=== PATIENT | female | born 1990 | race African-American/Black ===

== ENCOUNTER 2016-06-16 15:41 | Inpatient (IN) | payer BC ==
[~2016-06-16] VITALS: Ht 170.2 cm; Wt 82.2 kg
[~2016-06-16 15:41] MED LIST: OMEP20TA PO
[2016-06-16 15:44] VITALS: BP 136/93; PULSE 138; RESP 20; TEMP 97.9; O2SAT 99
[2016-06-16] MEDS ORDERED: TRAM50TA PO (16:34)
[2016-06-16] MEDS ORDERED: PROT40TA PO (16:34)
[2016-06-16] MEDS ORDERED: SODIUM CHLOR 0.9% 1000 ML INJ 1,000 ML IV SCH (16:40)
[2016-06-16 16:44] VITALS: BP 118/76; PULSE 119; RESP 17; O2SAT 100
[2016-06-16 16:45] VITALS: O2SAT 100
[2016-06-16] MEDS ORDERED: ONDANSETRON HCL 4 MG/2 ML VIAL IVP ONE (16:45)
[2016-06-16] MEDS ORDERED: KETOROLAC TROMETHAMINE 30 MG/ML (IVP) VIAL IVP ONE (16:45)
[2016-06-16] MEDS: SODIUM CHLORIDE 0.9% FLUSH 5 ML FLUSH IVF PRN (17:07)
--- NOTE | 2016-06-16 17:10 | PD ---
HPI Chief Complaint: Abdominal Pain Time Seen by Provider: 16:35 Travel History International Travel<30 days: No Contact w/Intl Traveler<30days: No Traveled to known affect area: No History of Present Illness HPI 25yo F with PMH of hiatal hernia presents to the ED with c/o NBNB vomiting for 2 weeks. States she has been having abdominal pain for months. Had endoscopy in [place] and states she had hiatal hernia. Denies any fever, chest pain , sob, urinary complaints, vaginal bleeding or discharge. PFSH Past Medical History Hx Anticoagulant Therapy: Yes Anxiety: Yes Cancer: No Cardiovascular Problems: No Chemotherapy: No Cerebrovascular Accident: No Diabetes: No Diminished Hearing: No Endocrine: No Gastrointestinal Disorders: Yes GERD: Yes Genitourinary: No Hiatal Hernia: Yes Immune Disorder: No Musculoskeletal: No Neurologic: No Psychiatric: No Reproductive: No Respiratory: No Tetanus Vaccination: < 5 Years Influenza Vaccination: Yes ?: Not Ovarian Cysts: Yes Past Surgical History Other Surgery: Yes (REMOVED CYST AND LEFT OVARY) Social History Alcohol Use: Yes (socially) Tobacco Use: No Substance Use: No (denies) Allergies-Medications (Allergen,Severity, Reaction): Coded Allergies: No Known Allergies (Unverified , 06/16/16) Reported Meds & Prescriptions Reported Meds & Active Scripts Active Reported Protonix (Pantoprazole Sodium) 40 Mg Tab 40 Mg PO DAILY Tramadol (Tramadol HCl) 50 Mg Tab 50 Mg PO Q6H PRN Review of Systems Except as stated in HPI: all other systems reviewed are Neg Physical Exam Narrative GENERAL: 25yo F not in distress. SKIN: Warm and dry. HEAD: Atraumatic. Normocephalic. EYES: Pupils equal and round. No scleral icterus. No injection or drainage. ENT: No nasal bleeding or discharge. Mucous membranes pink and moist. NECK: Trachea midline. No JVD. CARDIOVASCULAR: Regular rate and rhythm. No murmur appreciated. RESPIRATORY: No accessory muscle use. Clear to auscultation. Breath sounds equal bilaterally. GASTROINTESTINAL: Abdomen soft, non-tender, +TTP epigastric and suprapubic region. No RLQ ttp. No rebound tenderness or guarding. MUSCULOSKELETAL: No obvious deformities. No clubbing. No cyanosis. No edema. NEUROLOGICAL: Awake and alert. No obvious cranial nerve deficits. Motor grossly within normal limits. Normal speech. PSYCHIATRIC: Appropriate mood and affect; insight and judgment normal. Data Data Last Documented VS Vital Signs Date Time Temp Pulse Resp B/P Pulse Ox O2 Delivery O2 Flow Rate FiO2 06/16/16 16:45 100 Room Air 06/16/16 16:44 119 17 118/76 06/16/16 15:44 97.9 Orders Basic Metabolic Panel (Bmp) (06/16/16 16:40) Complete Blood Count With Diff (06/16/16 16:40) Lipase (06/16/16 16:40) Lactic Acid (06/16/16 16:40) Prothrombin Time / Inr (Pt) (06/16/16 16:40) Act Partial Throm Time (Ptt) (06/16/16 16:40) Urinalysis - C+S If Indicated (06/16/16 16:40) Iv Access Insert/Monitor (06/16/16 16:40) Ecg Monitoring (06/16/16 16:40) Oximetry (06/16/16 16:40) Ondansetron Inj (Zofran Inj) (06/16/16 16:45) Sodium Chlor 0.9% 1000 Ml Inj (Ns 1000 M (06/16/16 16:40) Sodium Chloride 0.9% Flush (Ns Flush) (06/16/16 16:45) Electrocardiogram (06/16/16 16:40) Ketorolac Inj (Toradol Inj) (06/16/16 16:45) Ed Urine Pregnancytest Poc (06/16/16 16:40) Troponin I (06/16/16 17:21) Ct Abd/Pel W Iv Contrast(Rout) (06/16/16 ) Urine Culture (06/16/16 17:00) Iohexol 350 Inj (Omnipaque 350 Inj) (06/16/16 18:16) Ceftriaxone Inj (Rocephin Inj) (06/16/16 18:30) Potassium Chlor 20 Meq Premix (Kcl 20 Me (06/16/16 18:30) Potassium Chloride (Kcl) (06/16/16 18:30) Magnesium Sulfate 1 Gm Premix (Magnesium (06/16/16 18:30) Diet Npo (06/16/16 Dinner) Vital Signs (Adult) OZZIE.Q4H (06/16/16 18:34) Ns + Kcl 20 Meq Inj (Ns + Kcl 20 Meq Inj (06/16/16 21:00) Basic Metabolic Panel (Bmp) (06/17/16 06:00) Complete Blood Count With Diff (06/17/16 06:00) Ondansetron Inj (Zofran Inj) (06/16/16 18:45) Admit Order (Ed Use Only) (06/16/16 18:38) Labs Laboratory Tests Test 06/16/16 06/16/16 16:55 17:00 White Blood Count 5.3 TH/MM3 Red Blood Count 4.82 MIL/MM3 Hemoglobin 12.8 GM/DL Hematocrit 39.3 % Mean Corpuscular Volume 81.6 FL Mean Corpuscular Hemoglobin 26.5 PG Mean Corpuscular Hemoglobin 32.4 % Concent Red Cell Distribution Width 25.2 % Platelet Count 537 TH/MM3 Mean Platelet Volume 6.9 FL Neutrophils (%) (Auto) 47.3 % Lymphocytes (%) (Auto) 36.0 % Monocytes (%) (Auto) 14.7 % Eosinophils (%) (Auto) 1.5 % Basophils (%) (Auto) 0.5 % Neutrophils # (Auto) 2.5 TH/MM3 Lymphocytes # (Auto) 1.9 TH/MM3 Monocytes # (Auto) 0.8 TH/MM3 Eosinophils # (Auto) 0.1 TH/MM3 Basophils # (Auto) 0.0 TH/MM3 CBC Comment AUTO DIFF Differential Comment AUTO DIFF CONFIRMED Platelet Estimate HIGH Platelet Morphology Comment NORMAL Target Cells 1+ Prothrombin Time 14.4 SEC Prothromb Time International 1.3 RATIO Ratio Activated Partial 35.1 SEC Thromboplast Time Sodium Level 139 MEQ/L Potassium Level 2.9 MEQ/L Chloride Level 101 MEQ/L Carbon Dioxide Level 22.0 MEQ/L Anion Gap 16 MEQ/L Blood Urea Nitrogen 4 MG/DL Creatinine 0.75 MG/DL Estimat Glomerular Filtration 115 ML/MIN Rate Random Glucose 92 MG/DL Lactic Acid Level 1.7 mmol/L Calcium Level 8.6 MG/DL Troponin I LESS THAN 0.02 NG/ML Lipase 461 U/L Urine Color ORANGE Urine Turbidity HAZY Urine pH 6.5 Urine Specific [place] 1.029 Urine Protein 300 mg/dL Urine Glucose (UA) NEG mg/dL Urine Ketones 150 mg/dL Urine Occult Blood SMALL Urine Nitrite NEG Urine Bilirubin NEG Urine Urobilinogen 8.0 MG/DL Urine Leukocyte Esterase LARGE Urine RBC 4 /hpf Urine WBC 29 /hpf Urine Squamous Epithelial 11 /hpf Cells Urine Bacteria OCC /hpf Urine Hyaline Casts 30 /lpf Urine Mucus MANY /lpf Microscopic Urinalysis Comment CULTURE INDICATED MDM Medical Decision Making Medical Screen Exam Complete: Yes Emergency Medical Condition: Yes Interpretation(s) EKG: Sinus tachycardia at 101bpm. Diffuse STD. Normal axis. Differential Diagnosis Cystitis vs. pancreatitis vs. colitis vs. gastritis Narrative Course 25yo F with vomiting for over 2 weeks and epigastric and suprapubic abdominal pain. Labs reviewed, no leukocytosis. K is low at 2.9, replaced with 20mEq KCl IV and 40mEq KCl PO. Pt also empirically given magnesium 1gm IV. Lipase mildly elevated at 461. Lactic acid 1.7. UA significant for large leukocyte and bacteria. Pt given ceftriaxone 1gm IV. Pt given zofran, toradol and NS IVF x2. CTa/p showed large complex septated pelvic mass that is decreased in size from prior study. Pt already knows about this and is being treated for it. Distal small bowel is abnormal with dilatation and nonspecific but most likely infectious or inflammatory. Added flagyl for colitis. Pt is having normal bowel movements and flatus. Discussed with Dr. Beltran and accepted. Diagnosis Primary Impression: Hypokalemia Additional Impression: Pelvic mass in female Admitting Information Admitting Physician Requests: Bibiana Hamilton DO Jun 16, 2016 17:10
[2016-06-16 17:25] LABS: AUTOMATED NEUTROPHIL # 2.5 TH/MM3 (1.8-7.7); BASOPHIL % 0.5 % (0.0-2.0); EOSINOPHIL # 0.1 TH/MM3 (0-0.4); EOSINOPHIL % 1.5 % (0.0-4.0); HEMATOCRIT 39.3 % (35.0-46.0); LYMPHOCYTE # 1.9 TH/MM3 (1.0-4.8); MEAN CELL VOLUME 81.6 FL (80.0-100.0); MEAN CORPUSCULAR HEMOGLOBIN 26.5 PG (27.0-34.0); MEAN CORPUSCULAR HGB CONC 32.4 % (32.0-36.0); MONO % 14.7 % (0.0-8.0); NEUT % 47.3 % (16.0-70.0); PLATELET COUNT 537 TH/MM3 (150-450); RED BLOOD COUNT 4.82 MIL/MM3 (4.00-5.30); RED CELL DISTRIBUTION WIDTH 25.2 % (11.6-17.2); WHITE BLOOD COUNT 5.3 TH/MM3 (4.0-11.0)
[2016-06-16 17:25] LABS: BACTERIA, URINE OCC /hpf; BLOOD, URINE SMALL (NEG); COMMENT (UR) CULTURE INDICATED; CULTURE IF INDICATED CULTURE INDICATED; GLUCOSE,URINE NEG (NEG); HYALINE CAST, URINE 30 /lpf (RARE); KETONE, URINE 150 mg/dL (NEG); MUCUS URINE MANY /lpf (OCC); NITRITE,URINE NEG (NEG); PH, URINE 6.5 (5.0-8.5); SQUAMOUS EPITHELIAL CELL URINE 11 /hpf (0-5)
[2016-06-16 17:28] LABS: APTT (PATIENT) 35.1 SEC (24.3-30.1); HEMO FLAGS AUTO DIFF; INTERNATIONAL NORMALIZED RATIO 1.3 RATIO; PROTHROMBIN TIME - PATIENT 14.4 SEC (9.8-11.6)
[2016-06-16 17:28] LABS: URINE COLOR ORANGE (YELLW/STRAW)
[2016-06-16] MEDS ORDERED: IOHEXOL 350 MG/ML 10 ML VIAL (for RAD DIAG) IV ONE (18:16)
[2016-06-16 18:24] LABS: POTASSIUM 2.9 MEQ/L (3.5-5.1)
[2016-06-16] MEDS ORDERED: POTASSIUM CHLOR 20 MEQ PREMIX 100 ML IV ONE (18:30)
[2016-06-16] MEDS ORDERED: MAGNESIUM SULFATE 1 GM PREMIX 100 ML IV ONE (18:30)
[2016-06-16] MEDS ORDERED: POTASSIUM CHLORIDE 20 MEQ CONTROLLED RELEASE TAB PO ONE (18:30)
[2016-06-16] MEDS ORDERED: cefTRIAXone INJ 1,000 MG in SODIUM CHLORIDE 0.9% INJ 100 ML IV ONE (18:30)
--- NOTE | 2016-06-16 18:32 | RADRPT ---
EXAM DATE/TIME: 06/16/2016 18:11 [facility] COMPARISON: CT ABDOMEN & PELVIS W/O CONTRAST, January 22, 2016, 10:32. INDICATIONS : Abdominal pain with nausea and vomiting. IV CONTRAST: 100 cc Omnipaque 350 (iohexol) IV ORAL CONTRAST: No oral contrast ingested. RADIATION DOSE: 10.12 CTDIvol (mGy) MEDICAL HISTORY : Hernia, hiatal. Endometriosis. History of a large complex cystic mass in the pelvis seen on prior CT SURGICAL HISTORY : None. Left ovary removal. ENCOUNTER: Initial ACUITY: 1 day PAIN SCALE: 7/10 LOCATION: Bilateral upper quadrant TECHNIQUE: Volumetric scanning of the abdomen and pelvis was performed. Using automated exposure control and ad justment of the mA and/or kV according to patient size, radiation dose was kept as low as reasonably achievable to obtain optimal diagnostic quality images. FINDINGS: LOWER LUNGS: The visualized lower lungs are clear. LIVER: Homogeneous density without lesion. There is no dilation of the biliary tree. No calcified gallston es. There is diffuse fatty infiltration of the upper. SPLEEN: Normal size without lesion. PANCREAS: Within normal limits. KIDNEYS: Normal in size and shape. There is no mass, stone or hydronephrosis. ADRENAL GLANDS: Within normal limits. VASCULAR: There is no aortic aneurysm. BOWEL/MESENTERY: There is an abnormal bowel gas pattern with loops of mildly dilated distal small bowel with enhanceme nt of the wall and air-fluid levels. The loops measure up to approximately 3.6 cm in greatest diamete r. There is apparent mild surrounding inflammatory change with no free air or fluid. The colon is dec ompressed. ABDOMINAL WALL: Within normal limits. RETROPERITONEUM: There is no lymphadenopathy. BLADDER: No wall thickening or mass. REPRODUCTIVE: A complex cystic mass is again identified in the central pelvis measuring up to 10.6 x 7.9 x 7.8 cm i n greatest AP by transverse by craniocaudal dimension. There multiple septations. The mass is smaller in size than on the prior study when this measured up to 17 x 11.9 x 15.1 cm. There is no large cristy d component. INGUINAL: There is no lymphadenopathy or hernia. MUSCULOSKELETAL: Within normal limits for patient age. CONCLUSION: 1. Large complex septated pelvic mass again noted which is decreased in size from the prior study. Th is remains most consistent with ovarian etiology. This could represent a large endometrioma given the patient's history. 2. The distal small bowel is abnormal with dilatation, enhancement of the sanchez and multiple air-flui d levels. This is nonspecific but most likely is infectious or inflammatory. The more proximal small bowel and colon are decompressed and this is unlikely to represent obstruction. 3. Fatty infiltration of the liver. Vicente Minor MD on June 16, 2016 at 18:22 Board Certified Radiologist. This report was verified electronically.
[2016-06-16 18:43] VITALS: BP 127/73; PULSE 100; RESP 20; O2SAT 98
[2016-06-16] MEDS ORDERED: metroNIDAZOLE 500 MG INJ 100 ML IV ONE (19:00)
[2016-06-16 19:02] LABS: SCAN/DIFF AUTO DIFF CONFIRMED
[2016-06-16 19:03] LABS: PLATELET ESTIMATE SMEAR HIGH (NORMAL); PLATELET MORPHOLOGY NORMAL (NORMAL); TARGET CELLS 1+ (NORMAL)
[2016-06-16] MEDS: MORPHINE SULFATE 4 MG/ML INJ IV PUSH PRN (21:10)
[2016-06-16] MEDS: NS + KCL 20 MEQ INJ 1,000 ML IV SCH (21:11)
[2016-06-16] MEDS: POTASSIUM CHLOR 20 MEQ PREMIX 100 ML IV SCH (21:11)
[2016-06-16 21:21] VITALS: BP 135/72; PULSE 96; RESP 16; TEMP 96.1; O2SAT 100
[2016-06-17 00:20] VITALS: PULSE 90; RESP 16; TEMP 96.2; O2SAT 100
--- NOTE | 2016-06-17 02:11 | HHI.HP ---
HPI Service [facility] Primary Care Physician No Primary Care Physician Admission Diagnosis UTI, hypokalemia Diagnoses: (1) Abdominal pain (2) GERD (gastroesophageal reflux disease) (3) Hiatal hernia (4) Pelvic mass in female (5) UTI (urinary tract infection) (6) Hypokalemia (7) Gastroenteritis Chief Complaint: Severe abdominal pain with n/v and weight loss Travel History International Travel<30 Days: No Contact w/Intl Traveler <30 Da: No Traveled to Known Affected Are: No History of Present Illness Ms. Smith is a 25 year-old female with a history of recent small bowel obstruction, pelvic mass (02/05), ovarian mass s/p left oopherectomy, anxiety and GERD, who presented to the ER on 06/16/16 complaining of nausea and vomiting for 2 weeks and months of abdominal pain with hiatal hernia found on endoscopy in [place] 05/25/16. Hypokalemia discovered on initial labs at 2.9. Lipase was slightly elevated at 461. Lactic acid within normal parameters at 1.7. Urinalysis was abnormal with large leukocytes, ketones, blood, and bacteria, culture is pending (nitrite negative). Abdomen and pelvis CT scan showed a large complex septated pelvic mass that decreased in size from prior study. The patient is currently under treatment for this. Distal small bowel noted with dilatation, enhancement of the sanchez, and multiple air-fluid levels; most likely related to inflammation or infection. The more proximal small bowel and colon are decompressed though this is unlikely to represent obstruction. Fatty infiltration of the liver noted. Heart rate elevated at 138 upon presentation. No leukocytosis the patients afebrile thus far. Of note, the patient had laparoscopy with left oophorectomy and cystectomy, peritoneal and ovarian biopsies and abdominal washout on 01/23/2016 for pelvic mass with ascites and a small bowel obstruction by Dr. Chung. CEA 125 elevated at 453.3 on 01/22/16. Mrs. Smith is seen in her room. She reports that she has had severe epigastric pain and relates this to her hiatal hernia. Her pain is accompanied by severe fatigue, nausea and vomiting with inability to even keep water down yesterday. She reports a 30 pound weight loss since March. She states that she saw a in field auditor in her home town in [place] (she attends college here) and he called her to follow up with her him but she was unable to return to see him. She had an appointment June [address] at [facility] but she states her symptoms have been so severe she is unable to wait until that appointment. She reports that she is aware of a right ovarian mass and her primary care physician placed her on Lupron for 6 months because she does not want to have her right ovary removed given her recent left oophorectomy and her young age. Upon review of her January admission, the right ovarian mass was not visualized on the CT scan at that time. She denies fever, diarrhea, constipation, black or red stools, hematuria, dysuria, liver or kidney problems, breathing problems, and history of blood clots such as DVT, PE, or CVA. She denies any history of seizure disorders or thyroid dysfunction. . Review of Systems Constitutional: COMPLAINS OF: Fatigue, DENIES: Fever Gastrointestinal: COMPLAINS OF: Abdominal pain, Nausea, Vomiting, DENIES: Black stools, Bloody stools, Constipation, Diarrhea Neurologic: COMPLAINS OF: Localized weakness, DENIES: Seizures Other 10 point review of systems completed, other than what is mentioned in history of present illness and above, the review is negative Past Family Social History Past Medical History Anxiety GERD Hiatal hernia Left ovarian cystic mass Endometriosis Ileus . Past Surgical History EGD 05/25/16 Laparoscopy with left oophorectomy and cystectomy, peritoneal and ovarian biopsies and abdominal washout for pelvic mass with ascites and a small bowel obstruction by Dr. Chung on 01/23/2016 . Reported Medications Reported Meds & Active Scripts Active Reported Protonix (Pantoprazole Sodium) 40 Mg Tab 40 Mg PO DAILY Tramadol (Tramadol HCl) 50 Mg Tab 50 Mg PO Q6H PRN Allergies: Coded Allergies: No Known Allergies (Unverified , 06/16/16) Active Ordered Medications Current Medications Ondansetron HCl 4 mg 4 mg ONCE ONCE IVP Last administered on 06/16/16t 17:07; Start 06/16/16 at 16:45; Stop 06/16/16 at 16:46; Status DC Sodium Chloride (NS 1000 ml Inj) 1,000 ml @ 1,000 mls/hr Q1H IV Last administered on 06/16/16 17:07; Start 06/16/16 at 16:40; Stop 06/16/16 at 17:39 ; Status DC IV Flush (NS Flush) 2 ml UNSCH PRN IVF FLUSH AFTER USING IV ACCESS Last administered on 06/16/16 17:07; Start 06/16/16 at 16:45 Ketorolac Tromethamine (Toradol Inj) 30 mg ONCE ONCE IVP Last administered on 06/16/16 17:06; Start 06/16/16 at 16:45; Stop 06/16/16 at 16:46; Status DC Iohexol 100 ml 100 ml STK-MED ONCE IV Last administered on 06/16/16 18:16; Start 06/16/16 at 18:16; Stop 06/16/16 at 18:17; Status DC Ceftriaxone Sodium 1000 mg/ Sodium Chloride 100 ml @ 200 mls/hr ONCE ONCE IV Last administered on 06/16/16 18:52; Start 06/16/16 at 18:30; Stop 06/16/16 at 18:59; Status DC Potassium Chloride (KCl 20 Meq Premix Inj) 100 ml @ 50 mls/hr ONCE ONCE IV Last administered on 06/16/16 19:29; Start 06/16/16 at 18:30; Stop 06/16/16 at 20:29; Status DC Potassium Chloride 40 meq 40 meq ONCE ONCE PO Last administered on 06/16/16 18:52; Start 06/16/16 at 18:30; Stop 06/16/16 at 18:31; Status DC Magnesium Sulfate/ Dextrose 100 ml @ 100 mls/hr ONCE ONCE IV Last administered on 06/16/16 21:10; Start 06/16/16 at 18:30; Stop 06/16/16 at 19:29 ; Status DC Potassium Chloride/Sodium Chloride (NS + KCl 20 Meq Inj) 1,000 ml @ 125 mls/hr Q8H IV Last administered on 06/17/16 03:12; Start 06/16/16 at 21:00 Ondansetron HCl 4 mg 4 mg Q8H PRN IV PUSH NAUSEA; Start 06/16/16 at 18:45 Metronidazole 100 ml @ 100 mls/hr ONCE ONCE IV Last administered on 21:10; Start 06/16/16 at 19:00; Stop 06/16/16 at 19:59; Status DC Metronidazole 100 ml @ 100 mls/hr Q6H IV Last administered on 06/17/16 03:12 ; Start 06/17/16 at 02:00 Ciprofloxacin/ Dextrose 200 ml @ 200 mls/hr Q12H IV ; Start 06/17/16 at 09:00 Potassium Chloride (KCl 20 Meq Premix Inj) 100 ml @ 50 mls/hr Q2H IV Last administered on 06/17/16 03:12; Start 06/16/16 at 21:30; Stop 06/17/16 at 01:29 ; Status DC Morphine Sulfate (Morphine Inj) 2 mg Q3H PRN IV PUSH pain >5 Last administered on 06/17/16 03:18; Start 06/16/16 at 21:15 . Family History Mother with hypertension and PFO, stage I endometrial cancer . Social History College student at [employer] Tobacco: Denies Alcohol: Illicit Drugs: Denies . Physical Exam Vital Signs Vital Signs Date Time Temp Pulse Resp B/P Pulse Ox O2 Delivery O2 Flow Rate FiO2 06/17/16 00:20 96.2 90 16 100 06/16/16 21:21 96.1 96 16 135/72 100 06/16/16 21:20 18 06/16/16 18:43 100 20 127/73 98 Room Air 06/16/16 16:45 100 Room Air 06/16/16 16:44 119 17 118/76 100 Room Air 06/16/16 15:44 97.9 138 20 136/93 99 Room Air Physical Exam GENERAL: This is a well-nourished, well-developed patient, in no apparent distress. SKIN: No rashes, ecchymoses or lesions. Cool and dry. HEAD: Atraumatic. Normocephalic. EYES: No scleral icterus. No injection or drainage. ENT: Nose without bleeding, purulent drainage. NECK: Trachea midline. No JVD or lymphadenopathy. CARDIOVASCULAR: Regular rate and rhythm without murmurs, gallops, or rubs. RESPIRATORY: Clear to auscultation. Breath sounds equal bilaterally. No wheezes , rales, or rhonchi. GASTROINTESTINAL: Abdomen soft, tender in epigastric region, nondistended. No guarding. MUSCULOSKELETAL: Extremities without clubbing, cyanosis, or edema. No calf tenderness. NEUROLOGICAL: Awake and alert. Motor and sensory grossly within normal limits. Normal speech. . Laboratory Laboratory Tests Test 06/16/16 06/16/16 16:55 17:00 White Blood Count 5.3 Red Blood Count 4.82 Hemoglobin 12.8 Hematocrit 39.3 Mean Corpuscular Volume 81.6 Mean Corpuscular Hemoglobin 26.5 Mean Corpuscular Hemoglobin 32.4 Concent Red Cell Distribution Width 25.2 Platelet Count 537 Mean Platelet Volume 6.9 Neutrophils (%) (Auto) 47.3 Lymphocytes (%) (Auto) 36.0 Monocytes (%) (Auto) 14.7 Eosinophils (%) (Auto) 1.5 Basophils (%) (Auto) 0.5 Neutrophils # (Auto) 2.5 Lymphocytes # (Auto) 1.9 Monocytes # (Auto) 0.8 Eosinophils # (Auto) 0.1 Basophils # (Auto) 0.0 CBC Comment AUTO DIFF Differential Comment AUTO DIFF CONFIRMED Platelet Estimate HIGH Platelet Morphology Comment NORMAL Target Cells 1+ Prothrombin Time 14.4 Prothromb Time International 1.3 Ratio Activated Partial 35.1 Thromboplast Time Sodium Level 139 Potassium Level 2.9 Chloride Level 101 Carbon Dioxide Level 22.0 Anion Gap 16 Blood Urea Nitrogen 4 Creatinine 0.75 Estimat Glomerular Filtration 115 Rate Random Glucose 92 Lactic Acid Level 1.7 Calcium Level 8.6 Troponin I LESS THAN 0.02 Lipase 461 Urine Color ORANGE Urine Turbidity HAZY Urine pH 6.5 Urine Specific [place] 1.029 Urine Protein 300 Urine Glucose (UA) NEG Urine Ketones 150 Urine Occult Blood SMALL Urine Nitrite NEG Urine Bilirubin NEG Urine Urobilinogen 8.0 Urine Leukocyte Esterase LARGE Urine RBC 4 Urine WBC 29 Urine Squamous Epithelial 11 Cells Urine Bacteria OCC Urine Hyaline Casts 30 Urine Mucus MANY Microscopic Urinalysis Comment CULTURE INDICATED Date/Time Procedure Status Source Growth 06/16/16 17:00 Urine Culture Worksheet Urine Clean Catch Pending Result Diagram: 06/16/16 1655 06/16/16 1655 Imaging Last Impressions Abdomen/Pelvis CT 06/16/16 0000 Signed Impressions: Service Date/Time: Thursday, June 16, 2016 18:11 - CONCLUSION: 1. Large complex septated pelvic mass again noted which is decreased in size from the prior study. This remains most consistent with ovarian etiology. This could represent a large endometrioma given the patient's history. 2. The distal small bowel is abnormal with dilatation, enhancement of the sanchez and multiple air-fluid levels. This is nonspecific but most likely is infectious or inflammatory. The more proximal small bowel and colon are decompressed and this is unlikely to represent obstruction. 3. Fatty infiltration of the liver. Vicente Minor MD Assessment and Plan Problem List: (1) Abdominal pain ICD Code: R10.9 Status: Acute (2) Pelvic mass in female ICD Code: R19.00 Status: Acute (3) GERD (gastroesophageal reflux disease) ICD Code: K21.9 Status: Chronic (4) Hiatal hernia ICD Code: K44.9 Status: Chronic Assessment and Plan Ms. Smith is a 25 year-old female with a history of recent small bowel obstruction, pelvic mass (02/05), ovarian mass s/p left oopherectomy, anxiety and GERD, who presented to the ER on 06/16/16 complaining of nausea and vomiting for 2 weeks and months of abdominal pain with hiatal hernia found on endoscopy in [place] 05/25/16. Severe abdominal pain Hiatal Hernia Pelvic mass - right ovarian mass per patient who is s/p left oophorectomy 02/05 - On Lupron from PCP - Will obtain records from GI specialist in [place] - discussed with patient's RN - Will consult Dr. Chung given that he is familiar with the patient and the right ovarian cyst was not seen on prior imaging here in January - CEA 125 elevated at 453.3 on 01/22/16. - Morphine 2 mg IV q3h PRN pain UTI - Urinalysis was abnormal with large leukocytes and bacteria, culture is pending. - Ciprofloxacin 400 mg IV every 12 hours - Await urine culture results - Adjust treatment if indicated Gastroenteritis - CT of abdomen and pelvis revealed distal small bowel noted with dilatation, enhancement of the sanchez, and multiple air-fluid levels; most likely related to inflammation or infection. - Empirical treatment with Metronidazole 500 mg IV every 6 hours along with ciprofloxacin as above Hypokalemia - Initial potassium 2.9 - Potassium replaced IV and by mouth - Recheck BMP in a.m. and follow trends - Replace potassium as indicated DVT prophylaxis - SCDs Pathology results 01/23/16: Ovarian mass biopsy - fibrotic tissue with hemosiderin laden macro phage is, second ovarian mass biopsy - ovarian tissue with fibrosis and focal hemosiderin deep position. One detached fragment of tissue suspicious for endometrial stroma. Left ovary and cyst excision - endometrioma. Pelvic mesenteric cyst excision - cystic structure containing degenerating blood with hemosiderin laden macrophages and fibrosis in the wall. Adjacent fragment of endometriosis. Written by Chery Gifford, acting as scribe for Dr. Riley on 06/17/16 at 01:35. The documentation accurately reflects the work performed [id number] by me on at 0135 addendum: 6:50 AM We'll cancel general surgery consult at this point. Patient is to be followed [employer] oncology for this pelvic mass issue previously. She did miss her appointments. Will instead therefore consult [employer] oncology. However, we are obtaining records from [place] regarding hiatal hernia. It is unusual that patient's doctors in [place] have recommended her to see another tea bag machine tender through [facility] for this hiatal hernia which according to them requires surgical intervention. I have explained to the patient that hiatal hernia very rarely require surgery intervention. Patient is unaware of the type of hiatal hernia. Since she is quite symptomatic and since she really wanted to take care of this because her education and her life has been interrupted from her symptoms and since she has been losing quite a bit of weight since February for these nausea vomiting episodes, we will be considering a general surgery consult if the records from [place] reveal a true indication for hiatal hernia repair here. Discussed Condition With ER physician, RN, and patient Physician Certification 2 Midnight Certification Type: Admission for Inpatient Services Order for Inpatient Services The services are ordered in accordance with Medicare regulations or non- Medicare payer requirements, as applicable. In the case of services not specified as inpatient-only, they are appropriately provided as inpatient services in accordance with the 2-midnight benchmark. Estimated LOS (days): 3 days is the estimated time the patient will need to remain in the hospital, assuming treatment plan goals are met and no additional complications. Post-Hospital Plan: Home Chery Gifford Jun 17, 2016 02:11 Altagracia Riley MD Jun 17, 2016 06:58
[2016-06-17] MEDS: NS + KCL 20 MEQ INJ 1,000 ML IV SCH ×3 (03:12→21:05)
[2016-06-17] MEDS: POTASSIUM CHLOR 20 MEQ PREMIX 100 ML IV SCH (03:12)
[2016-06-17] MEDS: metroNIDAZOLE 500 MG INJ 100 ML IV SCH ×4 (03:12→19:48)
[2016-06-17] MEDS: MORPHINE SULFATE 4 MG/ML INJ IV PUSH PRN ×6 (03:18→22:50)
[2016-06-17 05:44] VITALS: BP 135/87; PULSE 106; RESP 16; TEMP 99.6; O2SAT 94
[2016-06-17 07:02] LABS: BICARBONATE 21.4 MEQ/L (21.0-32.0); POTASSIUM 3.6 MEQ/L (3.5-5.1)
[2016-06-17 07:08] LABS: HEMATOCRIT 31.8 % (35.0-46.0); MEAN CORPUSCULAR HEMOGLOBIN 25.8 PG (27.0-34.0); MEAN CORPUSCULAR HGB CONC 32.3 % (32.0-36.0); PLATELET COUNT 448 TH/MM3 (150-450); RED BLOOD COUNT 3.97 MIL/MM3 (4.00-5.30); WHITE BLOOD COUNT 4.6 TH/MM3 (4.0-11.0)
[2016-06-17 07:15] LABS: HEMO FLAGS AUTO DIFF
[2016-06-17 08:15] VITALS: BP 118/78; PULSE 95; RESP 16; TEMP 97.3; O2SAT 100
[2016-06-17 08:15] LABS: BANDS 5 % (0-6); EOSINOPHILS 3 % (0-4); NEUTROPHIL # MANUAL DIFF 3.2 TH/MM3 (1.8-7.7); PLASMA CELLS 1 % (0-0); PLATELET ESTIMATE SMEAR HIGH (NORMAL); PLATELET MORPHOLOGY NORMAL (NORMAL); POLYS (SEG NEUTROPHILS) 64 % (16-70); SCAN/DIFF FINAL DIFF MANUAL; WBC DIFF SAMPLE 100
[2016-06-17 08:16] LABS: TARGET CELLS 1+ (NORMAL)
[2016-06-17] MEDS: ONDANSETRON HCL 4 MG/2 ML VIAL IV PUSH PRN ×2 (08:16→16:12)
--- NOTE | 2016-06-17 08:38 | HHI.PR ---
Subjective Remarks in no acute distress. abdominal pain and nausea is slightly better. d/w the RN. Objective Vitals Vital Signs Date Time Temp Pulse Resp B/P Pulse Ox O2 Delivery O2 Flow Rate FiO2 06/17/16 05:44 99.6 106 16 135/87 94 06/17/16 03:38 18 06/17/16 00:20 96.2 90 16 100 06/16/16 21:21 96.1 96 16 135/72 100 06/16/16 18:43 100 20 127/73 98 Room Air 06/16/16 16:45 100 Room Air 06/16/16 16:44 119 17 118/76 100 Room Air 06/16/16 15:44 97.9 138 20 136/93 99 Room Air I/O 06/16/16 06/16/16 06/16/16 06/17/16 06/17/16 06/17/16 07:00 15:00 23:00 07:00 15:00 23:00 Intake Total 396 ml 0 ml Balance 396 ml 0 ml Intake Oral 150 ml 0 ml IV Total 246 ml # Voids 1 2 # Bowel Movements 0 0 Result Diagram: 06/17/16 0515 06/17/16 0515 Imaging Last Impressions Abdomen/Pelvis CT 06/16/16 0000 Signed Impressions: Service Date/Time: Thursday, June 16, 2016 18:11 - CONCLUSION: 1. Large complex septated pelvic mass again noted which is decreased in size from the prior study. This remains most consistent with ovarian etiology. This could represent a large endometrioma given the patient's history. 2. The distal small bowel is abnormal with dilatation, enhancement of the sanchez and multiple air-fluid levels. This is nonspecific but most likely is infectious or inflammatory. The more proximal small bowel and colon are decompressed and this is unlikely to represent obstruction. 3. Fatty infiltration of the liver. Vicente Minor MD Objective Remarks GENERAL: This is a well-nourished, well-developed patient, in no apparent distress. CARDIOVASCULAR: Regular rate and regular rhythm without murmurs, gallops, or rubs. RESPIRATORY: Clear to auscultation. Breath sounds equal bilaterally. No wheezes , rales, or rhonchi. GASTROINTESTINAL: Abdomen soft, epigastric tenderness, nondistended. Normal, active bowel sounds MUSCULOSKELETAL: Extremities without clubbing, cyanosis, or edema. NEURO: Alert & Oriented x4 to person, place, time, situation. Moves all ext x4 Procedures none Medications and IVs Current Medications Ondansetron HCl 4 mg 4 mg ONCE ONCE IVP Last administered on 06/16/16 17:07; Start 06/16/16 at 16:45; Stop 06/16/16 at 16:46; Status DC Sodium Chloride (NS 1000 ml Inj) 1,000 ml @ 1,000 mls/hr Q1H IV Last administered on 06/16/16 17:07; Start 06/16/16 at 16:40; Stop 06/16/16 at 17:39 ; Status DC IV Flush (NS Flush) 2 ml UNSCH PRN IVF FLUSH AFTER USING IV ACCESS Last administered on 06/16/16 17:07; Start 06/16/16 at 16:45 Ketorolac Tromethamine (Toradol Inj) 30 mg ONCE ONCE IVP Last administered on 06/16/16 17:06; Start 06/16/16 at 16:45; Stop 06/16/16 at 16:46; Status DC Iohexol 100 ml 100 ml STK-MED ONCE IV Last administered on 06/16/16 18:16; Start 06/16/16 at 18:16; Stop 06/16/16 at 18:17; Status DC Ceftriaxone Sodium 1000 mg/ Sodium Chloride 100 ml @ 200 mls/hr ONCE ONCE IV Last administered on 06/16/16 18:52; Start 06/16/16 at 18:30; Stop 06/16/16 at 18:59; Status DC Potassium Chloride (KCl 20 Meq Premix Inj) 100 ml @ 50 mls/hr ONCE ONCE IV Last administered on 06/16/16 19:29; Start 06/16/16 at 18:30; Stop 06/16/16 at 20:29; Status DC Potassium Chloride 40 meq 40 meq ONCE ONCE PO Last administered on 06/16/16 18:52; Start 06/16/16 at 18:30; Stop 06/16/16 at 18:31; Status DC Magnesium Sulfate/ Dextrose 100 ml @ 100 mls/hr ONCE ONCE IV Last administered on 06/16/16 21:10; Start 06/16/16 at 18:30; Stop 06/16/16 at 19:29 ; Status DC Potassium Chloride/Sodium Chloride (NS + KCl 20 Meq Inj) 1,000 ml @ 125 mls/hr Q8H IV Last administered on 06/17/16 08:19; Start 06/16/16 at 21:00 Ondansetron HCl 4 mg 4 mg Q8H PRN IV PUSH NAUSEA Last administered on 08:16; Start 06/16/16 at 18:45 Metronidazole 100 ml @ 100 mls/hr ONCE ONCE IV Last administered on 21:10; Start 06/16/16 at 19:00; Stop 06/16/16 at 19:59; Status DC Metronidazole 100 ml @ 100 mls/hr Q6H IV Last administered on 06/17/16 08:17 ; Start 06/17/16 at 02:00 Ciprofloxacin/ Dextrose 200 ml @ 200 mls/hr Q12H IV ; Start 06/17/16 at 09:00 Potassium Chloride (KCl 20 Meq Premix Inj) 100 ml @ 50 mls/hr Q2H IV Last administered on 06/17/16 03:12; Start 06/16/16 at 21:30; Stop 06/17/16 at 01:29 ; Status DC Morphine Sulfate (Morphine Inj) 2 mg Q3H PRN IV PUSH pain >5 Last administered on 06/17/16 08:17; Start 06/16/16 at 21:15 A/P Assessment and Plan A/P Severe abdominal pain with Pelvic mass ( right ovarian mass per patient who is s /p left oophorectomy 02/05 ) and possible colitis on CT - On Lupron from PCP - Will obtain records from GI specialist in [place] - - Will consult GI and TALENT ANALYST oncolgy -continue IV antibiotics -continue pain control UTI - Urinalysis was abnormal with large leukocytes and bacteria, culture is pending. - Ciprofloxacin 400 mg IV every 12 hours - Await urine culture results - Adjust treatment if indicated Hypokalemia -replaced DVT prophylaxis - Aguila Coleman MD Jun 17, 2016 08:38
[2016-06-17] MEDS: CIPROFLOXACIN 400 MG PREMIX 200 ML IV SCH ×2 (09:39→21:02)
[2016-06-17 12:00] VITALS: BP 109/57; PULSE 98; RESP 16; TEMP 97.4; O2SAT 99
[2016-06-17 16:00] VITALS: BP 117/82; PULSE 120; RESP 16; TEMP 96.4; O2SAT 100
--- NOTE | 2016-06-17 16:09 | EKG ---
Date Performed: 06/16/2016 Time Performed: 17:12:42 PTAGE: 25 years EKG: SINUS TACHYCARDIA MINIMAL ST DEPRESSION ABNORMAL RHYTHM ECG NO PREVIOUS TRACING DOCTOR: Michoacano Winkler Interpretating Date/Time 06/17/2016 16:08:09
--- NOTE | 2016-06-17 16:48 | PD.CONS ---
HPI History of Present Illness This is a 25 year old female patient who is from [place] and here attending school at [employer]. She was having abdominal pain last year and found to have a pelvic mass with ascites and small bowel obstruction. She underwent diagnostic laparoscopy, laparoscopic left oophorectomy and cystectomy , peritoneal and ovarian biopsy laparoscopic with frozen section, and abdominal washout on 01/23/[address] Ta. Pathology revealed fibrotic tissue with hemosiderin laden macrophages, ovarian tissue with fibrosis and focal hemosiderin deposition, one detached fragment of tissue suspicious for endometrial stroma, endometrioma, cystic structure containing degenerating blood with hemosiderin laden macrophages and fibrosis in the wall, adjacent fragment of endometriosis. She was started on Lupron in April of 2016. She reports that she started having nausea/vomiting and inability to tolerate po back in March and April. This is aggravated by any po intake. She reports that whenever she tries to eat, she will have pain in her epigastric area that is a dull ache that radiates to her mid abdomen and then will vomit the food or liquid back up within five minutes. This is aggravated with any po intake. While at home, she was worked up for this with multiple imaging tests. She states at one point, they thought it was her gallbladder and she had a HIDA scan which was negative. She also was evaluated with an EGD on 05/25/[address] Norma Simental in [place] and this was unremarkable other than a hiatal hernia. She was placed on a trial of protonix, but she felt that this made her symptoms worse and therefore she did not continue it. She reports that she has lost about 55 lbs since this started back in January of 2016. She is moving her bowels without problems and has not seen any blood in her stool. (Hailey Baez) PFSH Past Medical History Anxiety GERD Hiatal hernia Left ovarian cystic mass Endometriosis Ileus Past Surgical History EGD 05/25/16 Laparoscopy with left oophorectomy and cystectomy, peritoneal and ovarian biopsies and abdominal washout for pelvic mass with ascites and a small bowel obstruction by Dr. Chung on 01/23/2016 (Hailey Baez) Coded Allergies: No Known Allergies (Unverified , 06/16/16) Medications Allergies Coded Allergies Type Severity Reaction Last Updated Verified No Known Allergies 06/16/16 No Active Scripts Medications Dose Route/Sig Days Date Category Protonix (Pantoprazole Sodium) 40 Mg Tab 40 Mg PO DAILY 06/16/16 Reported Tramadol (Tramadol HCl) 50 Mg Tab 50 Mg PO Q6H PRN 06/16/16 Reported Family History Mother with hypertension and PFO, stage I endometrial cancer . Social History College student at [employer] Denies tobacco, etoh, or illicit drug use. (Hailey Baez) Review of Systems Constitutional: COMPLAINS OF: Fatigue, Weight loss, Change in appetite Respiratory: DENIES: Cough, Shortness of breath Cardiovascular: DENIES: Chest pain Gastrointestinal: COMPLAINS OF: Abdominal pain, Nausea, Vomiting, DENIES: Black stools, Bloody stools, Constipation, Diarrhea, Anorexia, Swelling of Abdomen, Heartburn, Hematemesis Musculoskeletal: DENIES: Joint pain Hematologic/lymphatic: DENIES: Bruising Neurologic: DENIES: Headache Psychiatric: DENIES: Confusion (Hailey Baez) GI Exam Vitals I&O Vital Signs Date Time Temp Pulse Resp B/P Pulse Ox O2 Delivery O2 Flow Rate FiO2 06/17/16 12:00 97.4 98 16 109/57 99 06/17/16 08:15 97.3 95 16 118/78 100 06/17/16 05:44 99.6 106 16 135/87 94 06/17/16 03:38 18 06/17/16 00:20 96.2 90 16 100 06/16/16 21:21 96.1 96 16 135/72 100 06/16/16 18:43 100 20 127/73 98 Room Air 06/16/16 16:45 100 Room Air 06/16/16 16:44 119 17 118/76 100 Room Air I/O 06/16/16 06/16/16 06/16/16 06/17/16 06/17/16 06/17/16 07:00 15:00 23:00 07:00 15:00 23:00 Intake Total 396 ml 0 ml Balance 396 ml 0 ml Intake Oral 150 ml 0 ml IV Total 246 ml # Voids 1 2 # Bowel Movements 0 0 Imaging Last Impressions Abdomen/Pelvis CT 06/16/16 0000 Signed Impressions: Service Date/Time: Wednesday, June 16, 2016 18:11 - CONCLUSION: 1. Large complex septated pelvic mass again noted which is decreased in size from the prior study. This remains most consistent with ovarian etiology. This could represent a large endometrioma given the patient's history. 2. The distal small bowel is abnormal with dilatation, enhancement of the sanchez and multiple air-fluid levels. This is nonspecific but most likely is infectious or inflammatory. The more proximal small bowel and colon are decompressed and this is unlikely to represent obstruction. 3. Fatty infiltration of the liver. Vicente Minor MD Laboratory Test 06/16/16 06/16/16 06/17/16 16:55 17:00 05:15 White Blood Count 5.3 TH/MM3 4.6 TH/MM3 Red Blood Count 4.82 MIL/MM3 3.97 MIL/MM3 Hemoglobin 12.8 GM/DL 10.3 GM/DL Hematocrit 39.3 % 31.8 % Mean Corpuscular Volume 81.6 FL 80.0 FL Mean Corpuscular Hemoglobin 26.5 PG 25.8 PG Mean Corpuscular Hemoglobin 32.4 % 32.3 % Concent Red Cell Distribution Width 25.2 % 25.0 % Platelet Count 537 TH/MM3 448 TH/MM3 Mean Platelet Volume 6.9 FL 7.1 FL Neutrophils (%) (Auto) 47.3 % % Lymphocytes (%) (Auto) 36.0 % % Monocytes (%) (Auto) 14.7 % % Eosinophils (%) (Auto) 1.5 % % Basophils (%) (Auto) 0.5 % % Neutrophils # (Auto) 2.5 TH/MM3 TH/MM3 Lymphocytes # (Auto) 1.9 TH/MM3 TH/MM3 Monocytes # (Auto) 0.8 TH/MM3 TH/MM3 Eosinophils # (Auto) 0.1 TH/MM3 TH/MM3 Basophils # (Auto) 0.0 TH/MM3 TH/MM3 CBC Comment AUTO DIFF AUTO DIFF Differential Comment AUTO DIFF FINAL DIFF CONFIRMED MANUAL Platelet Estimate HIGH HIGH Platelet Morphology Comment NORMAL NORMAL Target Cells 1+ 1+ Prothrombin Time 14.4 SEC Prothromb Time International 1.3 RATIO Ratio Activated Partial 35.1 SEC Thromboplast Time Sodium Level 139 MEQ/L 144 MEQ/L Potassium Level 2.9 MEQ/L 3.6 MEQ/L Chloride Level 101 MEQ/L 110 MEQ/L Carbon Dioxide Level 22.0 MEQ/L 21.4 MEQ/L Anion Gap 16 MEQ/L 13 MEQ/L Blood Urea Nitrogen 4 MG/DL 3 MG/DL Creatinine 0.75 MG/DL 0.55 MG/DL Estimat Glomerular Filtration 115 ML/MIN 164 ML/MIN Rate Random Glucose 92 MG/DL 65 MG/DL Lactic Acid Level 1.7 mmol/L Calcium Level 8.6 MG/DL 7.7 MG/DL Troponin I LESS THAN 0.02 NG/ML Lipase 461 U/L Urine Color ORANGE Urine Turbidity HAZY Urine pH 6.5 Urine Specific [employer] 1.029 Urine Protein 300 mg/dL Urine Glucose (UA) NEG mg/dL Urine Ketones 150 mg/dL Urine Occult Blood SMALL Urine Nitrite NEG Urine Bilirubin NEG Urine Urobilinogen 8.0 MG/DL Urine Leukocyte Esterase LARGE Urine RBC 4 /hpf Urine WBC 29 /hpf Urine Squamous Epithelial 11 /hpf Cells Urine Bacteria OCC /hpf Urine Hyaline Casts 30 /lpf Urine Mucus MANY /lpf Microscopic Urinalysis Comment CULTURE INDICATED Differential Total Cells 100 Counted Neutrophils % (Manual) 64 % Band Neutrophils % 5 % Lymphocytes % 18 % Monocytes % 9 % Eosinophils % 3 % Neutrophils # (Manual) 3.2 TH/MM3 Plasma Cells 1 % Date/Time Procedure Status Source Growth 06/16/16 17:00 Urine Culture - Final Complete Urine Clean Catch 10-50,000 CFU/ML MIXED GRAM POSITIVE ... Physical Examination HEENT: Normocephalic; atraumatic; no jaundice. CHEST: CTA CARDIAC: RRR ABDOMEN: Soft, nondistended, epigastric tenderness; no hepatosplenomegaly; bowel sounds are present in all four quadrants. EXTREMITIES: No clubbing, cyanosis, or edema. SKIN: Normal; no rash; no jaundice. TEACHING MUSIC LESSONS: No focal deficits; alert and oriented times three. (Hailey Baez [facility]) Assessment and Plan Plan ASSESSMENT: - Abdominal pain with nausea, vomiting. Pt from [place], attends school here at [employer]. In January, she was found to have a large pelvic mass with ascites and small bowel obstruction. She underwent diagnostic laparoscopy, laparoscopic left oophorectomy and cystectomy, peritoneal and ovarian biopsy laparoscopic with frozen section, and abdominal washout on 01/23/[address] Ta. Pathology revealed fibrotic tissue with hemosiderin laden macrophages, ovarian tissue with fibrosis and focal hemosiderin deposition, one detached fragment of tissue suspicious for endometrial stroma, endometrioma, cystic structure containing degenerating blood with hemosiderin laden macrophages and fibrosis in the wall, adjacent fragment of endometriosis. She has continued to have n/v, inability to tolerate po. She was started on Lupron in April of 2016, but was having symptoms prior to this. She has had workup in [place], states they did HIDA to look at her gb and this was normal. She recently had EGD on 05/25/[address] Norma Simental in [place] and this was unremarkable other than a hiatal hernia. She was placed on a trial of protonix, but she felt that this made her symptoms worse and therefore she did not continue it. Abnormal wt. loss 55 lbs, with n/v about five minutes after trying to eat. + BM, last night. Denies constipation/bloating. Abdomen/Pelvis CT (06/16/16)---> 1. Large complex septated pelvic mass again noted which is decreased in size from the prior study. This remains most consistent with ovarian etiology. This could represent a large endometrioma given the patient's history. 2. The distal small bowel is abnormal with dilatation, enhancement of the sanchez and multiple air-fluid levels. This is nonspecific but most likely is infectious or inflammatory. The more proximal small bowel and colon are decompressed and this is unlikely to represent obstruction. 3. Fatty infiltration of the liver. WBC 4.6. Afebrile. Cipro/Flagyl. Zofran. NPO - Abnormal weight loss. 55 lb weight loss since January. States she vomits about 5 minutes after trying to eat. - Endometriosis, s/p diagnostic laparoscopy, laparoscopic left oophorectomy and cystectomy, peritoneal and ovarian biopsy laparoscopic with frozen section, and abdominal washout on 01/23/[address] Ta. Pathology revealed fibrotic tissue with hemosiderin laden macrophages, ovarian tissue with fibrosis and focal hemosiderin deposition, one detached fragment of tissue suspicious for endometrial stroma, endometrioma, cystic structure containing degenerating blood with hemosiderin laden macrophages and fibrosis in the wall, adjacent fragment of endometriosis. PLAN: - NPO for now - Cont. Cipro/Flagyl - Cont. Zofran prn - Obtain records from Dr. Norma Simental in [place], imaging, egd, pathology - Further recommendations to follow after evaluated by Dr. Myers (Hailey Baez) Physician Comments seen, examined agree with above states cannot keep water down, but can do clear liquids we will consult dr Tolbert as I believe the ovarian mass is causing some degree of obstruction (Bernie Myers MD) Hailey Baez Jun 17, 2016 16:48 Bernie Myers MD Jun 17, 2016 17:59
[2016-06-17 20:00] VITALS: BP_SYST 117; BP_SYST 143; BP_DIAS 57; BP_DIAS 77; PULSE 81; PULSE 98; RESP 16; TEMP 96.1; TEMP 99.6; O2SAT 100; O2SAT 94
[2016-06-18 00:22] VITALS: BP 128/76; PULSE 94; RESP 16; TEMP 96.2; O2SAT 100
[2016-06-18] MEDS: metroNIDAZOLE 500 MG INJ 100 ML IV SCH ×4 (02:20→19:52)
[2016-06-18] MEDS: MORPHINE SULFATE 4 MG/ML INJ IV PUSH PRN ×5 (02:24→19:49)
[2016-06-18 04:00] VITALS: BP 149/93; PULSE 112; RESP 16; TEMP 96.5; O2SAT 100
[2016-06-18] MEDS: ONDANSETRON HCL 4 MG/2 ML VIAL IV PUSH PRN ×3 (04:35→22:27)
[2016-06-18 07:41] LABS: BICARBONATE 23.8 MEQ/L (21.0-32.0); POTASSIUM 3.6 MEQ/L (3.5-5.1)
[2016-06-18 08:00] VITALS: BP 137/86; PULSE 92; RESP 18; TEMP 96.4; O2SAT 100
[2016-06-18] MEDS: NS + KCL 20 MEQ INJ 1,000 ML IV SCH ×3 (08:18→19:51)
[2016-06-18] MEDS: CIPROFLOXACIN 400 MG PREMIX 200 ML IV SCH ×2 (09:24→22:27)
--- NOTE | 2016-06-18 10:13 | HHI.PR ---
Subjective Remarks resting comfortably with no distress. has mild epigastric pain. had vomiting earlier this morning. no BM. Objective Vitals Vital Signs Date Time Temp Pulse Resp B/P Pulse Ox O2 Delivery O2 Flow Rate FiO2 06/18/16 08:00 96.4 92 18 137/86 100 06/18/16 07:00 19 06/18/16 04:00 96.5 112 16 149/93 100 06/18/16 00:22 96.2 94 16 128/76 100 06/17/16 20:00 96.1 98 16 143/77 100 06/17/16 16:00 96.4 120 16 117/82 100 06/17/16 12:00 97.4 98 16 109/57 99 I/O 06/17/16 06/17/16 06/17/16 06/18/16 06/18/16 06/18/16 07:00 15:00 23:00 07:00 15:00 23:00 Intake Total 0 ml 0 ml 1228 ml Balance 0 ml 0 ml 1228 ml Intake Oral 0 ml 0 ml 250 ml IV Total 978 ml # Voids 2 2 2 # Bowel Movements 0 0 Result Diagram: 06/17/16 0515 06/18/16 0603 Imaging Last Impressions Abdomen/Pelvis CT 06/16/16 0000 Signed Impressions: Service Date/Time: Thursday, June 16, 2016 18:11 - CONCLUSION: 1. Large complex septated pelvic mass again noted which is decreased in size from the prior study. This remains most consistent with ovarian etiology. This could represent a large endometrioma given the patient's history. 2. The distal small bowel is abnormal with dilatation, enhancement of the sanchez and multiple air-fluid levels. This is nonspecific but most likely is infectious or inflammatory. The more proximal small bowel and colon are decompressed and this is unlikely to represent obstruction. 3. Fatty infiltration of the liver. Vicente Minor MD Objective Remarks GENERAL: This is a well-nourished, well-developed patient, in no apparent distress. CARDIOVASCULAR: Regular rate and regular rhythm without murmurs, gallops, or rubs. RESPIRATORY: Clear to auscultation. Breath sounds equal bilaterally. No wheezes , rales, or rhonchi. GASTROINTESTINAL: Abdomen soft, mild epigastric tenderness, nondistended. Normal, active bowel sounds MUSCULOSKELETAL: Extremities without clubbing, cyanosis, or edema. NEURO: Alert & Oriented x4 to person, place, time, situation. Moves all ext x4 Procedures none Medications and IVs Current Medications Ondansetron HCl 4 mg 4 mg ONCE ONCE IVP Last administered on 06/16/16 17:07; Start 06/16/16 at 16:45; Stop 06/16/16 at 16:46; Status DC Sodium Chloride (NS 1000 ml Inj) 1,000 ml @ 1,000 mls/hr Q1H IV Last administered on 06/16/16 17:07; Start 06/16/16 at 16:40; Stop 06/16/16 at 17:39 ; Status DC IV Flush (NS Flush) 2 ml UNSCH PRN IVF FLUSH AFTER USING IV ACCESS Last administered on 06/16/16 17:07; Start 06/16/16 at 16:45 Ketorolac Tromethamine (Toradol Inj) 30 mg ONCE ONCE IVP Last administered on 06/16/16 17:06; Start 06/16/16 at 16:45; Stop 06/16/16 at 16:46; Status DC Iohexol 100 ml 100 ml STK-MED ONCE IV Last administered on 06/16/16 18:16; Start 06/16/16 at 18:16; Stop 06/16/16 at 18:17; Status DC Ceftriaxone Sodium 1000 mg/ Sodium Chloride 100 ml @ 200 mls/hr ONCE ONCE IV Last administered on 06/16/16 18:52; Start 06/16/16 at 18:30; Stop 06/16/16 at 18:59; Status DC Potassium Chloride (KCl 20 Meq Premix Inj) 100 ml @ 50 mls/hr ONCE ONCE IV Last administered on 06/16/16 19:29; Start 06/16/16 at 18:30; Stop 06/16/16 at 20:29; Status DC Potassium Chloride 40 meq 40 meq ONCE ONCE PO Last administered on 06/16/16 18:52; Start 06/16/16 at 18:30; Stop 06/16/16 at 18:31; Status DC Magnesium Sulfate/ Dextrose 100 ml @ 100 mls/hr ONCE ONCE IV Last administered on 06/16/16 21:10; Start 06/16/16 at 18:30; Stop 06/16/16 at 19:29 ; Status DC Potassium Chloride/Sodium Chloride (NS + KCl 20 Meq Inj) 1,000 ml @ 125 mls/hr Q8H IV Last administered on 06/18/16 08:18; Start 06/16/16 at 21:00 Ondansetron HCl 4 mg 4 mg Q8H PRN IV PUSH NAUSEA Last administered on 04:35; Start 06/16/16 at 18:45 Metronidazole 100 ml @ 100 mls/hr ONCE ONCE IV Last administered on 21:10; Start 06/16/16 at 19:00; Stop 06/16/16 at 19:59; Status DC Metronidazole 100 ml @ 100 mls/hr Q6H IV Last administered on 06/18/16 08:18 ; Start 06/17/16 at 02:00 Ciprofloxacin/ Dextrose 200 ml @ 200 mls/hr Q12H IV Last administered on 09:24; Start 06/17/16 at 09:00 Potassium Chloride (KCl 20 Meq Premix Inj) 100 ml @ 50 mls/hr Q2H IV Last administered on 06/17/16 03:12; Start 06/16/16 at 21:30; Stop 06/17/16 at 01:29 ; Status DC Morphine Sulfate (Morphine Inj) 2 mg Q3H PRN IV PUSH pain >5 Last administered on 06/18/16 06:53; Start 06/16/16 at 21:15 A/P Assessment and Plan A/P Severe abdominal pain with Pelvic mass ( right ovarian mass per patient who is s /p left oophorectomy 02/05 ) and possible colitis on CT - On Lupron from PCP - Will obtain records from GI specialist in [place] - - GI consult appreciated. -RADIATION THERAPIST consulted. -continue IV antibiotics -continue pain control UTI - Urinalysis was abnormal with large leukocytes and bacteria, culture is pending. - Ciprofloxacin 400 mg IV every 12 hours - Await urine culture results - Adjust treatment if indicated Hypokalemia -replaced DVT prophylaxis - SCDAguila Franco MD Jun 18, 2016 10:13
--- NOTE | 2016-06-18 10:50 | HHI.GIFU ---
Subjective Remarks Resting in bed. Taking some clears, but having nausea still. Dr. Tolbert was in. Pt reports that she was told that they would need to continue tx with Lupron. (Hailey Baez) Objective Vitals I&O Vital Signs Date Time Temp Pulse Resp B/P Pulse Ox O2 Delivery O2 Flow Rate FiO2 06/18/16 08:00 96.4 92 18 137/86 100 06/18/16 07:00 19 06/18/16 04:00 96.5 112 16 149/93 100 06/18/16 00:22 96.2 94 16 128/76 100 06/17/16 20:00 96.1 98 16 143/77 100 06/17/16 16:00 96.4 120 16 117/82 100 06/17/16 12:00 97.4 98 16 109/57 99 I/O 06/17/16 06/17/16 06/17/16 06/18/16 06/18/16 06/18/16 07:00 15:00 23:00 07:00 15:00 23:00 Intake Total 0 ml 0 ml 1228 ml Balance 0 ml 0 ml 1228 ml Intake Oral 0 ml 0 ml 250 ml IV Total 978 ml # Voids 2 2 2 # Bowel Movements 0 0 Laboratory Laboratory Tests Test 06/18/16 06:03 Sodium Level 145 Potassium Level 3.6 Chloride Level 111 Carbon Dioxide Level 23.8 Anion Gap 10 Blood Urea Nitrogen 1 Creatinine 0.58 Estimat Glomerular Filtration 155 Rate Random Glucose 83 Calcium Level 7.9 Date/Time Procedure Status Source Growth 06/16/16 17:00 Urine Culture - Final Complete Urine Clean Catch 10-50,000 CFU/ML MIXED GRAM POSITIVE ... Imaging Last Impressions Abdomen/Pelvis CT 06/16/16 0000 Signed Impressions: Service Date/Time: Thursday, June 16, 2016 18:11 - CONCLUSION: 1. Large complex septated pelvic mass again noted which is decreased in size from the prior study. This remains most consistent with ovarian etiology. This could represent a large endometrioma given the patient's history. 2. The distal small bowel is abnormal with dilatation, enhancement of the sanchez and multiple air-fluid levels. This is nonspecific but most likely is infectious or inflammatory. The more proximal small bowel and colon are decompressed and this is unlikely to represent obstruction. 3. Fatty infiltration of the liver. Vicente Minor MD Physical Exam HEENT: Normocephalic; atraumatic; no jaundice. Throat is clear. NECK: Neck is supple, no JVD, no lymphadenopathy. CHEST: CTA CARDIAC: RRR ABDOMEN: Soft, nondistended, nontender; no hepatosplenomegaly; bowel sounds are present in all four quadrants. EXTREMITIES: No clubbing, cyanosis, or edema. SKIN: Normal; no rash; no jaundice. 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 (Hailey Baez) Assessment and Plan Plan ASSESSMENT: - Abdominal pain with nausea, vomiting. Pt from [place], attends school here at [facility]. In January, she was found to have a large pelvic mass with ascites and small bowel obstruction. She underwent diagnostic laparoscopy, laparoscopic left oophorectomy and cystectomy, peritoneal and ovarian biopsy laparoscopic with frozen section, and abdominal washout on 01/23/[address] Ta. Pathology revealed fibrotic tissue with hemosiderin laden macrophages, ovarian tissue with fibrosis and focal hemosiderin deposition, one detached fragment of tissue suspicious for endometrial stroma, endometrioma, cystic structure containing degenerating blood with hemosiderin laden macrophages and fibrosis in the wall, adjacent fragment of endometriosis. She has continued to have n/v, inability to tolerate po. She was started on Lupron in April of 2016, but was having symptoms prior to this. She has had workup in [place], states they did HIDA to look at her gb and this was normal. She recently had EGD on 05/25/[address] Norma Simental in [place] and this was unremarkable other than a hiatal hernia. She was placed on a trial of protonix, but she felt that this made her symptoms worse and therefore she did not continue it. Abnormal wt. loss 55 lbs, with n/v about five minutes after trying to eat. + BM, last night. Denies constipation/bloating. Abdomen/Pelvis CT (06/16/16)---> 1. Large complex septated pelvic mass again noted which is decreased in size from the prior study. This remains most consistent with ovarian etiology. This could represent a large endometrioma given the patient's history. 2. The distal small bowel is abnormal with dilatation, enhancement of the sanchez and multiple air-fluid levels. This is nonspecific but most likely is infectious or inflammatory. The more proximal small bowel and colon are decompressed and this is unlikely to represent obstruction. 3. Fatty infiltration of the liver. RECORDS from [place]: EGD (05/25/16)---> mild gastritis in antrum and a small sliding hiatal hernia, otherwise normal upper endoscopy. Pathology with mild chronic gastritis, no h pylori. Cipro/Flagyl. Zofran. Clear liquids. Dr. Tolbert consulted for suspected obstructive process related to mass. - Abnormal weight loss. 55 lb weight loss since January. States she vomits about 5 minutes after trying to eat. - Endometriosis, s/p diagnostic laparoscopy, laparoscopic left oophorectomy and cystectomy, peritoneal and ovarian biopsy laparoscopic with frozen section, and abdominal washout on 01/23/[address] Ta. Pathology revealed fibrotic tissue with hemosiderin laden macrophages, ovarian tissue with fibrosis and focal hemosiderin deposition, one detached fragment of tissue suspicious for endometrial stroma, endometrioma, cystic structure containing degenerating blood with hemosiderin laden macrophages and fibrosis in the wall, adjacent fragment of endometriosis. PLAN: - Clear liquids - Cont. Cipro/Flagyl - Cont. Zofran prn - Dr. Tolbert consulted - Further recommendations to follow after evaluated by Dr. Myers - Pt seen and examined by Dr. Myers and myself and this note is written on her behalf (Hailey Baez) Physician Comments seen, examined agree with above trial of Protonix bid, reglan if able to tolerate po we can try sbft with Gastrografin does not want an ngt (Bernie Myers MD) Hailey Baez Jun 18, 2016 10:50 Bernie Myers MD Jun 18, 2016 15:41
[2016-06-18 12:00] VITALS: BP 127/81; PULSE 96; RESP 18; TEMP 97.1; O2SAT 100
--- NOTE | 2016-06-18 12:48 | MB ---
cc: AGUILA BELTRAN MD, KELLY L. MD DATE OF CONSULTATION 06/18/[address] Aguila Beltran REASON FOR CONSULTATION Pelvic mass HISTORY This patient is seen. Findings are reviewed. CT scans are reviewed. She is counseled and examined by me in conjunction with our nurse practitioner (Naun Galarza) I agree with her findings, assessment, and plan of care. She presents with abdominal discomfort, some nausea and vomiting, decreased bowel function. She was found on exam and imaging to have approximately a 10-11 cm mass in the central pelvis with some air fluid levels, dilated loops of proximal bowel and compressed distal bowel. She is admitted to the hospital on bowel rest, IV hydration. A nasogastric tube has not been placed. She has not had any vomiting overnight. She still has some nausea. She has reflux symptoms. She has been diagnosis with a hiatal hernia as well. She reports a small amount of flatus yesterday, but otherwise no return of bowel function. 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 There was evidence of endometriosis in the tissue adjacent to the mesenteric cyst as well. There are multiple biopsies of the contralateral ovarian cyst which showed changes suggestive of endometriosis. There was no evidence of malignancy. She reports that she is under the care of her primary care physician who has started her on Depo-Lupron. She has received two monthly injections of Depo-Lupron which she is tolerating reasonably well. 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 OBJECTIVE Imaging shows a multiloculated cystic mass in the central pelvis measuring 10.6 cm in greatest dimension. It is noted that the CT scans obtained previously [place], which I believe were preoperative from her of surgery in January, showed a conglomeration of masses measuring at least 17 cm in greatest dimension. There is no significant solid component. Changes in the small bowel were nonspecific, but were thought to be most likely infectious or inflammatory and the proximal bowel appeared decompressed such that it did not seem likely to be an intestinal obstruction. Fatty changes in the liver were noted. No adenopathy, ascites or intraperitoneal nodularity. PHYSICAL EXAM On exam, she has been afebrile, pulse ranging from 92-120, respirations 16-18, blood pressure 117-149/76-93, O2 saturations 100%. GENERAL: She is alert and oriented x3. She complains of discomfort in the epigastric region and she has been spitting up a little bit of fluid without active emesis. She also reports discomfort in her lower mid midabdomen. The abdomen is nonacute. It is soft and with a midline fullness below the umbilicus in the low mid abdomen somewhat appreciated, but this is improvement compared to when we met her several months ago prior to her initial CLIENT DEVELOPMENT MANAGER surgery. PAST MEDICAL HISTORY, PAST SURGICAL HISTORY, MEDICATIONS, FAMILY HISTORY AND REVIEW OF SYSTEMS AND SO FORTH All reviewed and as are documented in the chart. I have no new or additional information to add to these findings. DISCUSSION Time is spent in discussion with her reviewing the findings in her case to date. I am sorry that she is feeling poorly, as was our previous discussion. The first time we took her surgery was to exclude the possibility of malignancy which I believe has been done satisfactorily as all tissues pointed to endometriosis and mesenteric cyst. It would be improbable for a 25-year-old woman to have a gynecologic malignancy and I suspected the changes noted on her CT scan are recurrence of endometrioma. Bowel rest, IV fluids, correction of electrolytes, supportive care and medication to address her reflux symptoms may help improve her status. If emesis becomes a recurrent problem, nasogastric tube should or considered. With respect to the pelvic mass, we would like to avoid surgery if at all possible. A 25-year-old female with additional surgery may further hinder her reproductive capacity and she is hopeful to maintain her reproductive capacity. I agree with the medical management Depo-Lupron to try to suppress ovarian function and try to suppress the endometriosis. She has already had the majority of one ovary removed, possibly the entire ovary and it would be optimal to preserve ovarian function in this young woman if possible. Given that the central mass is predominantly cystic, it may be reasonable to ask of interventional radiology to aspirate this mass to provide symptomatic relief. If us she continues to be symptomatic and it is thought that the mass is contributing to her GI symptoms, I would favor conservative approach as is being done at the present time in the hopes that she will improve and she may have gastroenteritis causing her symptoms and may resolve with time and supportive care. ASSESSMENT 1. Central pelvic mass in a young woman known to have a history of endometriosis and large endometrioma, as well as mesenteric cyst. 2. Gastroenteritis, hiatal hernia with reflux, signs and symptoms of ileus versus intermittent small-bowel Obstruction 3. Discussion PLAN 1. Agree with conservative management and supportive care, IV fluids, bowel rest. If emesis continues to be a problem, consider nasogastric tube and ongoing medication to suppress symptoms of her reflux. 2. Would try to avoid surgery if at all possible. Try to maintain fertility in this young woman. She is receiving outpatient medical management for endometriosis with Depo-Lupron, I would continue that therapy. 3. If she does not improve with conservative measures, it may be reasonable to ask of interventional radiology if they could Do an image guided aspiration of the predominately cystic mass as we have previously excluded malignancy. Almost certainly, this is endometriosis and an endometrioma and this may help provide symptomatic relief in conjunction with ongoing outpatient Depot Lupron. Thank you for the consultation. We have no further recommendations from a gynecologic oncology standpoint at this time. MD NADYA Bowman/GURINDER /8:56 AM /12:20 PM
--- NOTE | 2016-06-18 14:13 | PD.CONS ---
History of Present Illness Service YARD LABORER.ONC Consult Requested By Dr. Yap Reason for Consult pelvic mass pt with PMH: endometrioma Primary Care Physician No Primary Care Physician Diagnoses: (1) Pelvic mass in female (2) Small bowel obstruction History of Present Illness This is a 25 year old who had been experiencing abdominal pain, nausea and vomiting. She had resection of ovarian mass/ left oophorectomy back in 01/2016 for final pathology of endometrioma. She presented to ER for further evaluation and was found to have right pelvic mass and SBO. Ms. Smith is being treated for her endometriosis with monthly Depo-Lupron inj. she has had 2 inj and tolerating it well. She states that she recently had an EGD in [place] that shown hiatal hernia she was on a PPI but felt it was not working so she stopped taking it. She states since her admission she has not had a BM put +flatus yesterday. She is starting to have some improvement with nausea/vomiting. Review of Systems Constitutional: COMPLAINS OF: Weight loss Gastrointestinal: COMPLAINS OF: Abdominal pain, Nausea, Vomiting Past Family Social History Allergies: Coded Allergies: No Known Allergies (Unverified , 06/16/16) Past Medical History anxiety GERD hiatal hernia left endometrioma endometriosis ileus Past Surgical History left oophorectomy EGD Reported Medications per EMR Active Ordered Medications Current Medications Ondansetron HCl 4 mg 4 mg ONCE ONCE IVP Last administered on 06/16/16 17:07; Start 06/16/16 at 16:45; Stop 06/16/16 at 16:46; Status DC Sodium Chloride (NS 1000 ml Inj) 1,000 ml @ 1,000 mls/hr Q1H IV Last administered on 06/16/16 17:07; Start 06/16/16 at 16:40; Stop 06/16/16 at 17:39 ; Status DC IV Flush (NS Flush) 2 ml UNSCH PRN IVF FLUSH AFTER USING IV ACCESS Last administered on 06/16/16 17:07; Start 06/16/16 at 16:45 Ketorolac Tromethamine (Toradol Inj) 30 mg ONCE ONCE IVP Last administered on 06/16/16 17:06; Start 06/16/16 at 16:45; Stop 06/16/16 at 16:46; Status DC Iohexol 100 ml 100 ml STK-MED ONCE IV Last administered on 06/16/16 18:16; Start 06/16/16 at 18:16; Stop 06/16/16 at 18:17; Status DC Ceftriaxone Sodium 1000 mg/ Sodium Chloride 100 ml @ 200 mls/hr ONCE ONCE IV Last administered on 06/16/16 18:52; Start 06/16/16 at 18:30; Stop 06/16/16 at 18:59; Status DC Potassium Chloride (KCl 20 Meq Premix Inj) 100 ml @ 50 mls/hr ONCE ONCE IV Last administered on 06/16/16 19:29; Start 06/16/16 at 18:30; Stop 06/16/16 at 20:29; Status DC Potassium Chloride 40 meq 40 meq ONCE ONCE PO Last administered on 06/16/16 18:52; Start 06/16/16 at 18:30; Stop 06/16/16 at 18:31; Status DC Magnesium Sulfate/ Dextrose 100 ml @ 100 mls/hr ONCE ONCE IV Last administered on 06/16/16 21:10; Start 06/16/16 at 18:30; Stop 06/16/16 at 19:29 ; Status DC Potassium Chloride/Sodium Chloride (NS + KCl 20 Meq Inj) 1,000 ml @ 125 mls/hr Q8H IV Last administered on 06/18/16 08:18; Start 06/16/16 at 21:00 Ondansetron HCl 4 mg 4 mg Q8H PRN IV PUSH NAUSEA Last administered on 13:24; Start 06/16/16 at 18:45 Metronidazole 100 ml @ 100 mls/hr ONCE ONCE IV Last administered on 21:10; Start 06/16/16 at 19:00; Stop 06/16/16 at 19:59; Status DC Metronidazole 100 ml @ 100 mls/hr Q6H IV Last administered on 06/18/16 13:24 ; Start 06/17/16 at 02:00 Ciprofloxacin/ Dextrose 200 ml @ 200 mls/hr Q12H IV Last administered on 09:24; Start 06/17/16 at 09:00 Potassium Chloride (KCl 20 Meq Premix Inj) 100 ml @ 50 mls/hr Q2H IV Last administered on 06/17/16 03:12; Start 06/16/16 at 21:30; Stop 06/17/16 at 01:29 ; Status DC Morphine Sulfate (Morphine Inj) 2 mg Q3H PRN IV PUSH pain >5 Last administered on 06/18/16t 13:24; Start 06/16/16 at 21:15 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 nauseated SKIN: No rashes, ecchymoses or lesions. Cool and dry. HEAD: Atraumatic. Normocephalic. No temporal or scalp tenderness. EYES: Pupils equal round and reactive. Extraocular motions intact. No scleral icterus. No injection or drainage. NECK: Trachea midline. No JVD or lymphadenopathy. Supple, nontender, no meningeal signs. GASTROINTESTINAL: Abdomen soft, midline fullness below umbilicus, not acute with no guarding or rebound tenderness MUSCULOSKELETAL: Extremities without clubbing, cyanosis, or edema. NEUROLOGICAL: Awake and alert. Laboratory Laboratory Tests Test 06/18/16 06:03 Sodium Level 145 Potassium Level 3.6 Chloride Level 111 Carbon Dioxide Level 23.8 Anion Gap 10 Blood Urea Nitrogen 1 Creatinine 0.58 Estimat Glomerular Filtration 155 Rate Random Glucose 83 Calcium Level 7.9 Date/Time Procedure Status Source Growth 06/16/16 17:00 Urine Culture - Final Complete Urine Clean Catch 10-50,000 CFU/ML MIXED GRAM POSITIVE ... Result Diagram: 06/17/16 0515 06/18/16 0603 Imaging Last Impressions Abdomen/Pelvis CT 06/16/16 0000 Signed Impressions: Service Date/Time: Thursday, June 16, 2016 18:11 - CONCLUSION: 1. Large complex septated pelvic mass again noted which is decreased in size from the prior study. This remains most consistent with ovarian etiology. This could represent a large endometrioma given the patient's history. 2. The distal small bowel is abnormal with dilatation, enhancement of the sanchez and multiple air-fluid levels. This is nonspecific but most likely is infectious or inflammatory. The more proximal small bowel and colon are decompressed and this is unlikely to represent obstruction. 3. Fatty infiltration of the liver. Vicente Minor MD Assessment and Plan Problem List: (1) Small bowel obstruction Status: Acute Plan: GI has been consulted and following slowly advancing diet pt reports that her symptoms have improved some since admission (2) Pelvic mass in female Status: Acute Plan: per ct improvement in pelvic mass from 17 X 11.9 X 15.1 to 10.6 X 7.9 X 7.8 pt would like to continue Depro Lupron as oupt she and Dr. Tolbert agree that surgery would be the last choice. At her young age of 25 we do not want the extensive potential complications of putting someone so young into early menopause and allow her to preserve fertility. Discussed Condition With Dr. Tolbert and he is in agreement with this plan. Naun Galarza Jun 18, 2016 14:13
[2016-06-18 16:00] VITALS: BP 142/71; PULSE 99; RESP 20; TEMP 97.7; O2SAT 100
[2016-06-18] MEDS ORDERED: METOCLOPRAMIDE HCL 10 MG/2 ML VIAL IM SCH (16:00)
[2016-06-18] MEDS: PANTOPRAZOLE SODIUM 40 MG VIAL IV PUSH SCH (16:34)
[2016-06-18 20:00] VITALS: BP 113/83; PULSE 99; RESP 18; TEMP 97.1; O2SAT 100
[2016-06-19] VITALS: BP 134/84; PULSE 97; RESP 16; TEMP 97.7; O2SAT 100
[2016-06-19] MEDS: MORPHINE SULFATE 4 MG/ML INJ IV PUSH PRN ×6 (00:47→22:16)
[2016-06-19] MEDS: METOCLOPRAMIDE HCL 10 MG/2 ML VIAL IV SCH ×4 (00:47→22:15)
[2016-06-19] MEDS: metroNIDAZOLE 500 MG INJ 100 ML IV SCH ×4 (00:49→19:19)
[2016-06-19 04:00] VITALS: BP 119/89; PULSE 98; RESP 18; TEMP 97.5; O2SAT 98
[2016-06-19] MEDS: NS + KCL 20 MEQ INJ 1,000 ML IV SCH ×3 (05:00→19:19)
[2016-06-19] MEDS: PANTOPRAZOLE SODIUM 40 MG VIAL IV PUSH SCH ×2 (05:07→17:00)
--- NOTE | 2016-06-19 07:56 | HHI.PR ---
Subjective Remarks in no acute distress. abdominal pain is better today along with her nausea. Objective Vitals Vital Signs Date Time Temp Pulse Resp B/P Pulse Ox O2 Delivery O2 Flow Rate FiO2 06/19/16 04:00 97.5 98 18 119/89 98 06/19/16 00:53 19 06/19/16 00:00 97.7 97 16 134/84 100 06/18/16 20:00 97.1 99 18 113/83 100 06/18/16 16:00 97.7 99 20 142/71 100 06/18/16 12:00 97.1 96 18 127/81 100 06/18/16 08:00 96.4 92 18 137/86 100 I/O 06/18/16 06/18/16 06/18/16 06/19/16 06/19/16 06/19/16 07:00 15:00 23:00 07:00 15:00 23:00 Intake Total 1228 ml 360 ml 2167 ml 1097 ml Balance 1228 ml 360 ml 2167 ml 1097 ml Intake Oral 250 ml 360 ml 480 ml 240 ml IV Total 978 ml 1687 ml 857 ml # Voids 2 2 2 2 # Bowel Movements 0 0 Result Diagram: 06/17/16 0515 06/18/16 0603 Imaging Last Impressions Abdomen/Pelvis CT 06/16/16 0000 Signed Impressions: Service Date/Time: Thursday, June 16, 2016 18:11 - CONCLUSION: 1. Large complex septated pelvic mass again noted which is decreased in size from the prior study. This remains most consistent with ovarian etiology. This could represent a large endometrioma given the patient's history. 2. The distal small bowel is abnormal with dilatation, enhancement of the sanchez and multiple air-fluid levels. This is nonspecific but most likely is infectious or inflammatory. The more proximal small bowel and colon are decompressed and this is unlikely to represent obstruction. 3. Fatty infiltration of the liver. Vicente Minor MD Objective Remarks GENERAL: This is a well-nourished, well-developed patient, in no apparent distress. CARDIOVASCULAR: Regular rate and regular rhythm without murmurs, gallops, or rubs. RESPIRATORY: Clear to auscultation. Breath sounds equal bilaterally. No wheezes , rales, or rhonchi. GASTROINTESTINAL: Abdomen soft, mild epigastric tenderness, nondistended. Normal, active bowel sounds MUSCULOSKELETAL: Extremities without clubbing, cyanosis, or edema. NEURO: Alert & Oriented x4 to person, place, time, situation. Moves all ext x4 Procedures none Medications and IVs Current Medications Ondansetron HCl 4 mg 4 mg ONCE ONCE IVP Last administered on 06/16/16 17:07; Start 06/16/16 at 16:45; Stop 06/16/16 at 16:46; Status DC Sodium Chloride (NS 1000 ml Inj) 1,000 ml @ 1,000 mls/hr Q1H IV Last administered on 06/16/16 17:07; Start 06/16/16 at 16:40; Stop 06/16/16 at 17:39 ; Status DC IV Flush (NS Flush) 2 ml UNSCH PRN IVF FLUSH AFTER USING IV ACCESS Last administered on 06/16/16 17:07; Start 06/16/16 at 16:45 Ketorolac Tromethamine (Toradol Inj) 30 mg ONCE ONCE IVP Last administered on 06/16/16 17:06; Start 06/16/16 at 16:45; Stop 06/16/16 at 16:46; Status DC Iohexol 100 ml 100 ml STK-MED ONCE IV Last administered on 06/16/16 18:16; Start 06/16/16 at 18:16; Stop 06/16/16 at 18:17; Status DC Ceftriaxone Sodium 1000 mg/ Sodium Chloride 100 ml @ 200 mls/hr ONCE ONCE IV Last administered on 06/16/16 18:52; Start 06/16/16 at 18:30; Stop 06/16/16 at 18:59; Status DC Potassium Chloride (KCl 20 Meq Premix Inj) 100 ml @ 50 mls/hr ONCE ONCE IV Last administered on 06/16/16 19:29; Start 06/16/16 at 18:30; Stop 06/16/16 at 20:29; Status DC Potassium Chloride 40 meq 40 meq ONCE ONCE PO Last administered on 06/16/16 18:52; Start 06/16/16 at 18:30; Stop 06/16/16 at 18:31; Status DC Magnesium Sulfate/ Dextrose 100 ml @ 100 mls/hr ONCE ONCE IV Last administered on 06/16/16 21:10; Start 06/16/16 at 18:30; Stop 06/16/16 at 19:29 ; Status DC Potassium Chloride/Sodium Chloride (NS + KCl 20 Meq Inj) 1,000 ml @ 125 mls/hr Q8H IV Last administered on 06/18/16 19:51; Start 06/16/16 at 21:00 Ondansetron HCl 4 mg 4 mg Q8H PRN IV PUSH NAUSEA Last administered on 22:27; Start 06/16/16 at 18:45 Metronidazole 100 ml @ 100 mls/hr ONCE ONCE IV Last administered on 21:10; Start 06/16/16 at 19:00; Stop 06/16/16 at 19:59; Status DC Metronidazole 100 ml @ 100 mls/hr Q6H IV Last administered on 06/19/16 00:49 ; Start 06/17/16 at 02:00 Ciprofloxacin/ Dextrose 200 ml @ 200 mls/hr Q12H IV Last administered on 22:27; Start 06/17/16 at 09:00 Potassium Chloride (KCl 20 Meq Premix Inj) 100 ml @ 50 mls/hr Q2H IV Last administered on 06/17/16 03:12; Start 06/16/16 at 21:30; Stop 06/17/16 at 01:29 ; Status DC Morphine Sulfate (Morphine Inj) 2 mg Q3H PRN IV PUSH pain >5 Last administered on 06/19/16 00:47; Start 06/16/16 at 21:15 Pantoprazole Sodium (Protonix Inj) 40 mg Q12H IV PUSH Last administered on 06/19 05:07; Start 06/18/16 at 17:00 Metoclopramide HCl (Reglan Inj) 10 mg Q8H IM Last administered on 06/18/16 16: 35; Start 06/18/16 at 16:00; Stop 06/18/16 at 18:14; Status DC Metoclopramide HCl (Reglan Inj) 10 mg Q8H IV Last administered on 06/19/16 00: 47; Start 06/19/16 at 00:00 A/P Assessment and Plan A/P Severe abdominal pain with Pelvic mass ( right ovarian mass per patient who is s /p left oophorectomy 02/05 ) and possible colitis on CT - On Lupron from PCP - awaiting records from GI specialist in [place] - - GI consult appreciated; started on Reglan and Protonix -on liquid diet -TUYERE FITTER consult appreciated and no surgical intervention at this time; will continue with conservative treatment -continue IV antibiotics -continue pain control Hypokalemia -replaced DVT prophylaxis - SCDs Aguila Beltran MD Jun 19, 2016 07:56
[2016-06-19 08:00] VITALS: BP 128/89; PULSE 99; RESP 16; TEMP 96.6; O2SAT 100
[2016-06-19] MEDS: CIPROFLOXACIN 400 MG PREMIX 200 ML IV SCH ×2 (09:47→21:14)
--- NOTE | 2016-06-19 11:25 | HHI.GIFU ---
GI Follow-up Note Consult Follow-up Subjective: Patient laying in bed, pain Crow abdomen better, has back pain now . She states could keep some water down. Not very good historian, not answering all questions , looks like she is bothered with interview . Objective: PHYSICAL EXAMINATION: Vitals signs stable No fever Vital Signs Date Time Temp Pulse Resp B/P Pulse Ox O2 Delivery O2 Flow Rate FiO2 06/19/16 08:00 96.6 99 16 128/89 100 06/19/16 04:00 97.5 98 18 119/89 98 HEENT: Pupils round and reactive to light; normocephalic; atraumatic; no jaundice. Throat is clear. NECK: Neck is supple, no JVD, no lymphadenopathy. CHEST: Chest is clear to auscultation and percussion. CARDIAC: Regular rate and rhythm with no murmur gallop or rubs. ABDOMEN: Soft, nondistended, left upper tender; no hepatosplenomegaly; bowel sounds are present in all four quadrants. EXTREMITIES: No clubbing, cyanosis, or edema. SKIN: Normal; no rash; no jaundice. SMALL ENGINE TRAINER: No focal deficits; alert and oriented times three. Available Data (labs, X- Rays, Procedues) : Laboratory Tests Test 06/18/16 06:03 Sodium Level 145 MEQ/L Potassium Level 3.6 MEQ/L Chloride Level 111 MEQ/L Carbon Dioxide Level 23.8 MEQ/L Anion Gap 10 MEQ/L Blood Urea Nitrogen 1 MG/DL Creatinine 0.58 MG/DL Estimat Glomerular Filtration 155 ML/MIN Rate Random Glucose 83 MG/DL Calcium Level 7.9 MG/DL ASSESSMENT/PLAN: nausea, vomiting -better recent egd , hida negative as per patient recurrent partial small bowel obstruction secondary oavarian mass-medical management as per ultrasonic welding machine operator now elevated lipase, could be secondary ovarian mass, need to r/o pancreatic issues abnormal small intestine on ct , most likely secondary external compression from ovarian mass Recommendations clear liquid diet Reglan/pantoprazole lfts, lipase, mrcp if negative sbft, colonoscopy once able to tolerate po-refusing ngt await records It was a pleasure seeing Rosalba Smith. Thank you for this consult. Entered by: Bernie Parham MD Jun 19, 2016 11:25
[2016-06-19 12:00] VITALS: BP 145/88; PULSE 104; RESP 18; TEMP 96.9; O2SAT 99
[2016-06-19] MEDS: ONDANSETRON HCL 4 MG/2 ML VIAL IV PUSH PRN ×2 (12:41→15:46)
--- NOTE | 2016-06-19 13:50 | RADRPT ---
EXAM DATE/TIME: 06/19/2016 12:57 [facility] COMPARISON: CT ABDOMEN & PELVIS W CONTRAST, June 16, 2016, 18:11. INDICATIONS : Abdominal pain. Nausea and vomiting. MEDICAL HISTORY : Hernia, hiatal. Endometriosis. SURGICAL HISTORY : Left ovary removed. ENCOUNTER: Initial ACUITY: 1 day PAIN SCORE: 0/10 LOCATION: upper quadrant TECHNIQUE: Multiplanar, multisequence magnetic resonance imaging of the abdomen was performed. High-resolution 3D dataset was utilized to reconstruct maximum-intensity projection (MIP) images. FINDINGS: INTRAHEPATIC BILE DUCTS: Within normal limits. No significant anatomical variant is present. EXTRAHEPATIC BILE DUCTS: The common bile duct measures 4 mm No stone or filling defect is identified. GALLBLADDER: No stones, wall thickening, or pericholecystic fluid. LIVER: Normal size and signal intensity. No concerning liver lesion is identified on this non-contrast exam. PANCREAS: The pancreas is normal in size. However, there appears to be edema associated with the pancreas and t here appears to be some fluid surrounding the pancreas extending into the right paracolic gutter. The se findings would suggest pancreatitis. OTHER: The remaining visualized structures demonstrate no acute abnormality on this non-contrast exam. CONCLUSION: 1. No evidence of any definite gallstones or biliary tract obstruction. 2. There appears to be edema and fluid surrounding the pancreas and extending to the right paracolic gutter suggestive of pancreatitis. Recommend correlation with patient's laboratory values. Yohan De Oliveira MD on June 19, 2016 at 13:44 Board Certified Radiologist. This report was verified electronically.
[2016-06-19 16:00] VITALS: BP 139/97; PULSE 100; RESP 16; TEMP 97.4; O2SAT 100
[2016-06-19 18:40] LABS: INDIRECT BILIRUBIN 0.2 MG/DL (0.0-0.8); TOTAL BILIRUBIN ADULT 0.4 MG/DL (0.2-1.0)
[2016-06-19 20:00] VITALS: BP 134/91; PULSE 101; RESP 16; TEMP 97.5; O2SAT 100
[2016-06-20] VITALS: BP 133/87; PULSE 103; RESP 18; TEMP 97.8; O2SAT 100
[2016-06-20] MEDS: PANTOPRAZOLE SODIUM 40 MG VIAL IV PUSH SCH ×2 (03:27→17:09)
[2016-06-20] MEDS: ONDANSETRON HCL 4 MG/2 ML VIAL IV PUSH PRN (03:27)
[2016-06-20] MEDS: metroNIDAZOLE 500 MG INJ 100 ML IV SCH ×4 (03:28→20:23)
[2016-06-20] MEDS: MORPHINE SULFATE 4 MG/ML INJ IV PUSH PRN ×7 (03:28→23:46)
[2016-06-20 04:01] VITALS: BP 142/96; PULSE 102; RESP 16; TEMP 97.8; O2SAT 100
[2016-06-20] MEDS: NS + KCL 20 MEQ INJ 1,000 ML IV SCH ×3 (06:32→20:34)
[2016-06-20 08:00] VITALS: BP 130/86; PULSE 96; RESP 18; TEMP 96.6; O2SAT 100
[2016-06-20] MEDS: METOCLOPRAMIDE HCL 10 MG/2 ML VIAL IV SCH ×3 (08:29→23:51)
[2016-06-20] MEDS: CIPROFLOXACIN 400 MG PREMIX 200 ML IV SCH ×2 (10:35→21:36)
--- NOTE | 2016-06-20 11:43 | HHI.PR ---
Subjective Remarks has some abdominal pain but it seems to be better today. no vomiting today. d/w the RN. Objective Vitals Vital Signs Date Time Temp Pulse Resp B/P Pulse Ox O2 Delivery O2 Flow Rate FiO2 06/20/16 08:00 96.6 96 18 130/86 100 06/20/16 04:01 97.8 102 16 142/96 100 06/20/16 00:00 97.8 103 18 133/87 100 06/19/16 20:00 97.5 101 16 134/91 100 06/19/16 16:00 97.4 100 16 139/97 100 06/19/16 12:00 96.9 104 18 145/88 99 I/O 06/19/16 06/19/16 06/19/16 06/20/16 06/20/16 06/20/16 07:00 15:00 23:00 07:00 15:00 23:00 Intake Total 1097 ml 240 ml 1871 ml 1830 ml Output Total 50 ml Balance 1097 ml 240 ml 1821 ml 1830 ml Intake Oral 240 ml 240 ml 480 ml 480 ml IV Total 857 ml 1391 ml 1350 ml Output Emesis 50 ml # Voids 2 1 2 3 Result Diagram: 06/17/16 0515 06/18/16 0603 Imaging Last Impressions Cholangiopancreatography MRI 06/19/16 0000 Signed Impressions: Service Date/Time: Sunday, June 19, 2016 12:57 - CONCLUSION: 1. No evidence of any definite gallstones or biliary tract obstruction. 2. There appears to be edema and fluid surrounding the pancreas and extending to the right paracolic gutter suggestive of pancreatitis. Recommend correlation with patient's laboratory values. Yohan De Oliveira MD Abdomen/Pelvis CT 06/16/16 0000 Signed Impressions: Service Date/Time: Thursday, June 16, 2016 18:11 - CONCLUSION: 1. Large complex septated pelvic mass again noted which is decreased in size from the prior study. This remains most consistent with ovarian etiology. This could represent a large endometrioma given the patient's history. 2. The distal small bowel is abnormal with dilatation, enhancement of the sanchez and multiple air-fluid levels. This is nonspecific but most likely is infectious or inflammatory. The more proximal small bowel and colon are decompressed and this is unlikely to represent obstruction. 3. Fatty infiltration of the liver. Vicente Minor MD Objective Remarks GENERAL: This is a well-nourished, well-developed patient, in no apparent distress. CARDIOVASCULAR: Regular rate and regular rhythm without murmurs, gallops, or rubs. RESPIRATORY: Clear to auscultation. Breath sounds equal bilaterally. No wheezes , rales, or rhonchi. GASTROINTESTINAL: Abdomen soft, mild epigastric tenderness, nondistended. Normal, active bowel sounds MUSCULOSKELETAL: Extremities without clubbing, cyanosis, or edema. NEURO: Alert & Oriented x4 to person, place, time, situation. Moves all ext x4 Procedures none Medications and IVs Current Medications Ondansetron HCl 4 mg 4 mg ONCE ONCE IVP Last administered on 06/16/16 17:07; Start 06/16/16 at 16:45; Stop 06/16/16 at 16:46; Status DC Sodium Chloride (NS 1000 ml Inj) 1,000 ml @ 1,000 mls/hr Q1H IV Last administered on 06/16/16 17:07; Start 06/16/16 at 16:40; Stop 06/16/16 at 17:39 ; Status DC IV Flush (NS Flush) 2 ml UNSCH PRN IVF FLUSH AFTER USING IV ACCESS Last administered on 06/16/16 17:07; Start 06/16/16 at 16:45 Ketorolac Tromethamine (Toradol Inj) 30 mg ONCE ONCE IVP Last administered on 06/16/16 17:06; Start 06/16/16 at 16:45; Stop 06/16/16 at 16:46; Status DC Iohexol 100 ml 100 ml STK-MED ONCE IV Last administered on 06/16/16 18:16; Start 06/16/16 at 18:16; Stop 06/16/16 at 18:17; Status DC Ceftriaxone Sodium 1000 mg/ Sodium Chloride 100 ml @ 200 mls/hr ONCE ONCE IV Last administered on 06/16/16 18:52; Start 06/16/16 at 18:30; Stop 06/16/16 at 18:59; Status DC Potassium Chloride (KCl 20 Meq Premix Inj) 100 ml @ 50 mls/hr ONCE ONCE IV Last administered on 06/16/16 19:29; Start 06/16/16 at 18:30; Stop 06/16/16 at 20:29; Status DC Potassium Chloride 40 meq 40 meq ONCE ONCE PO Last administered on 06/16/16 18:52; Start 06/16/16 at 18:30; Stop 06/16/16 at 18:31; Status DC Magnesium Sulfate/ Dextrose 100 ml @ 100 mls/hr ONCE ONCE IV Last administered on 06/16/16 21:10; Start 06/16/16 at 18:30; Stop 06/16/16 at 19:29 ; Status DC Potassium Chloride/Sodium Chloride (NS + KCl 20 Meq Inj) 1,000 ml @ 125 mls/hr Q8H IV Last administered on 06/20/16 06:32; Start 06/16/16 at 21:00 Ondansetron HCl 4 mg 4 mg Q8H PRN IV PUSH NAUSEA Last administered on 03:27; Start 06/16/16 at 18:45 Metronidazole 100 ml @ 100 mls/hr ONCE ONCE IV Last administered on 21:10; Start 06/16/16 at 19:00; Stop 06/16/16 at 19:59; Status DC Metronidazole 100 ml @ 100 mls/hr Q6H IV Last administered on 06/20/16 08:29 ; Start 06/17/16 at 02:00 Ciprofloxacin/ Dextrose 200 ml @ 200 mls/hr Q12H IV Last administered on 10:35; Start 06/17/16 at 09:00 Potassium Chloride (KCl 20 Meq Premix Inj) 100 ml @ 50 mls/hr Q2H IV Last administered on 06/17/16 03:12; Start 06/16/16 at 21:30; Stop 06/17/16 at 01:29 ; Status DC Morphine Sulfate (Morphine Inj) 2 mg Q3H PRN IV PUSH pain >5 Last administered on 06/20/16 10:35; Start 06/16/16 at 21:15 Pantoprazole Sodium (Protonix Inj) 40 mg Q12H IV PUSH Last administered on 06/20 03:27; Start 06/18/16 at 17:00 Metoclopramide HCl (Reglan Inj) 10 mg Q8H IM Last administered on 06/18/16 16: 35; Start 06/18/16 at 16:00; Stop 06/18/16 at 18:14; Status DC Metoclopramide HCl (Reglan Inj) 10 mg Q8H IV Last administered on 06/20/16t 08: 29; Start 06/19/16 at 00:00 A/P Assessment and Plan A/P acute pancreatitis on liquid diet continue pain control repeat lipase level in am continue PPI GI following Pelvic mass ( right ovarian mass per patient who is s/p left oophorectomy 02/05 ) - On Lupron from PCP -HEATING FIXTURE TENDER consult appreciated and no surgical intervention at this time; will continue with conservative treatment Hypokalemia -replaced DVT prophylaxis - SCDs Aguila Beltran MD Jun 20, 2016 11:43
[2016-06-20 12:00] VITALS: BP 128/82; PULSE 97; RESP 16; TEMP 96.8; O2SAT 100
[2016-06-20 16:00] VITALS: BP 144/84; PULSE 99; RESP 18; TEMP 96.8; O2SAT 100
--- NOTE | 2016-06-20 16:18 | HHI.GIFU ---
GI Follow-up Note Consult Follow-up Subjective: Patient laying in bed comfortably.Able to tolerate water , asking for ensure. MRCP showed pancreatis, as per patient hida scan done recently negative-awaiting results. Had a bowel movement few days ago .did not see her out of bed yet Objective: PHYSICAL EXAMINATION: Vitals signs stable No fever Vital Signs Date Time Temp Pulse Resp B/P Pulse Ox O2 Delivery O2 Flow Rate FiO2 06/20/16 12:00 96.8 97 16 128/82 100 HEENT: Pupils round and reactive to light; normocephalic; atraumatic; no jaundice. Throat is clear. NECK: Neck is supple, no JVD, no lymphadenopathy. CHEST: Chest is clear to auscultation and percussion. CARDIAC: Regular rate and rhythm with no murmur gallop or rubs. ABDOMEN: Soft, nondistended, luq tender; no hepatosplenomegaly; bowel sounds are present in all four quadrants. EXTREMITIES: No clubbing, cyanosis, or edema. SKIN: Normal; no rash; no jaundice. DIRECTOR METABOLISM: No focal deficits; alert and oriented times three. Available Data (labs, X- Rays, Procedues) : Laboratory Tests Test 06/19/16 17:43 Total Bilirubin 0.4 MG/DL Direct Bilirubin 0.2 MG/DL Indirect Bilirubin 0.2 MG/DL Aspartate Amino Transf 9 U/L (AST/SGOT) Alanine Aminotransferase 12 U/L (ALT/SGPT) Alkaline Phosphatase 62 U/L Total Protein 5.4 GM/DL Albumin 1.9 GM/DL Lipase 3584 U/L ASSESSMENT/PLAN: pancreatis-unclear etiology-as per patient hida negative-possible secondary Lupron partial sbo due to ovarian huny-[id number] intervention as per business banker / oncology-continue Lupron Recommendations full liquid diet ct enterography we will discuss with business banker/oncology about pancreatitis being a possible side effect to Lupron -patietn states had similar symptoms when she started, than she did not take for a month due to medications not being available, felt fine , now has recurrent symptoms ivf ensure 1 can po tid nutritional consult -low albumin consider holding Lupron if ok with business banker/oncology It was a pleasure seeing Rosalba Smith. Thank you for this consult. Entered by: Bernie Parham MD Jun 20, 2016 16:18
[2016-06-20 20:00] VITALS: BP 129/85; PULSE 98; RESP 16; TEMP 98.6; O2SAT 98
[2016-06-20] MEDS: SODIUM CHLORIDE 0.9% FLUSH 5 ML FLUSH IVF PRN (20:31)
[2016-06-21] VITALS: BP 117/84; PULSE 97; RESP 16; TEMP 97; O2SAT 100
[2016-06-21] MEDS: metroNIDAZOLE 500 MG INJ 100 ML IV SCH ×4 (02:51→19:37)
[2016-06-21 04:00] VITALS: BP_SYST 113; BP_SYST 121; BP_DIAS 58; BP_DIAS 79; PULSE 75; PULSE 93; RESP 18; TEMP 97.6; TEMP 98.3; O2SAT 100; O2SAT 94
[2016-06-21] MEDS: MORPHINE SULFATE 4 MG/ML INJ IV PUSH PRN ×6 (04:53→23:23)
[2016-06-21] MEDS: SODIUM CHLORIDE 0.9% FLUSH 5 ML FLUSH IVF PRN ×3 (04:54→20:11)
[2016-06-21] MEDS: PANTOPRAZOLE SODIUM 40 MG VIAL IV PUSH SCH ×2 (04:58→17:02)
[2016-06-21] MEDS: NS + KCL 20 MEQ INJ 1,000 ML IV SCH ×3 (05:00→22:43)
[2016-06-21 08:00] VITALS: BP 129/77; PULSE 88; RESP 20; TEMP 98.2; O2SAT 100
--- NOTE | 2016-06-21 08:40 | PD.ONC.PN ---
Subjective Subjective Remarks nurse obgyn/onc pt is resting in bed states that she is having stomach pain at this time ERCP shown possible pancreatis...pt states that she got her first shot of Depo Lupron in April and she states she did not have any side effects with the first inj. i explained that although it seems to be a more rare side effect of Depo Lupron pancreatis has been reported. Objective Data Date Time Temp Pulse Resp B/P Pulse Ox O2 Delivery O2 Flow Rate FiO2 06/21/16 04:00 97.6 93 18 113/79 100 06/21/16 00:00 97.0 97 16 117/84 100 06/20/16 20:00 98.6 98 16 129/85 98 06/20/16 16:00 96.8 99 18 144/84 100 06/20/16 12:00 96.8 97 16 128/82 100 06/21/16 06/21/16 06/21/16 07:00 15:00 23:00 Intake Total 1075 ml Output Total 100 ml Balance 975 ml Result Diagram: 06/17/16 0515 06/18/16 0603 Administered Medications Medications (Trade) Dose Ordered Sig/Juan Alberto Route PRN Reason Start Time Stop Time Status Last Admin Dose Admin IV Flush 2 ml 2 ml UNSCH PRN IVF FLUSH AFTER USING IV ACCESS 06/16/16 16:45 06/21/16 04:54 Potassium Chloride/Sodium Chloride (NS + KCl 20 Meq Inj) 1,000 ml @ 125 mls/hr Q8H IV 06/16/16 21:00 06/20/16 20:34 Ondansetron HCl 4 mg 4 mg Q8H PRN IV PUSH NAUSEA 06/16/16 18:45 06/20/16 03:27 Metronidazole 100 ml @ 100 mls/hr Q6H IV 06/17/16 02:00 06/21/16 02:51 Ciprofloxacin/ Dextrose (Cipro 400 Mg Premix) 200 ml @ 200 mls/hr Q12H IV 06/17/16 09:00 06/20/16 21:36 Morphine Sulfate (Morphine Inj) 2 mg Q3H PRN IV PUSH pain >5 06/16/16 21:15 06/21/16 04:53 Pantoprazole Sodium (Protonix Inj) 40 mg Q12H IV PUSH 06/18/16 17:00 06/21/16 04:58 Metoclopramide HCl (Reglan Inj) 10 mg Q8H IV 06/19/16 00:00 06/20/16 23:51 Objective Remarks GENERAL: Well-nourished, well-developed patient. SKIN: Warm and dry. HEAD: Normocephalic. EYES: No scleral icterus. No injection or drainage. MUSCULOSKELETAL: Adequate muscle tone. NEUROLOGICAL: No obvious focal deficit. Awake, alert, and oriented x3. PSYCHIATRIC: Appropriate mood and affect; insight and judgment normal. Assessment/Plan Problem List: (1) Ovarian mass Status: Acute Plan: Dr. Tolbert wishes to avoid surgery and putting someone so young into menopause unsure if recent hospitalization is related to Depo Lupron inj. (2) Small bowel obstruction Status: Acute Plan: GI following pt is NPO for procedure today. Naun Galarza Jun 21, 2016 08:40
--- NOTE | 2016-06-21 08:59 | HHI.PR ---
Subjective Remarks abdominal pain is better. no vomiting. tolerating the liquid diet. Objective Vitals Vital Signs Date Time Temp Pulse Resp B/P Pulse Ox O2 Delivery O2 Flow Rate FiO2 06/21/16 08:00 98.2 88 20 129/77 100 06/21/16 04:00 97.6 93 18 113/79 100 06/21/16 00:00 97.0 97 16 117/84 100 06/20/16 20:00 98.6 98 16 129/85 98 06/20/16 16:00 96.8 99 18 144/84 100 06/20/16 12:00 96.8 97 16 128/82 100 I/O 06/20/16 06/20/16 06/20/16 06/21/16 06/21/16 06/21/16 07:00 15:00 23:00 07:00 15:00 23:00 Intake Total 1830 ml 480 ml 1960 ml 1075 ml Output Total 100 ml Balance 1830 ml 480 ml 1960 ml 975 ml Intake Oral 480 ml 480 ml 240 ml IV Total 1350 ml 1960 ml 835 ml Output Emesis 100 ml # Voids 3 2 3 # Bowel Movements 0 Result Diagram: 06/17/16 0515 06/18/16 0603 Imaging Last Impressions Cholangiopancreatography MRI 06/19/16 0000 Signed Impressions: Service Date/Time: Sunday, June 19, 2016 12:57 - CONCLUSION: 1. No evidence of any definite gallstones or biliary tract obstruction. 2. There appears to be edema and fluid surrounding the pancreas and extending to the right paracolic gutter suggestive of pancreatitis. Recommend correlation with patient's laboratory values. Yohan De Oliveira MD Abdomen/Pelvis CT 06/16/16 0000 Signed Impressions: Service Date/Time: Thursday, June 16, 2016 18:11 - CONCLUSION: 1. Large complex septated pelvic mass again noted which is decreased in size from the prior study. This remains most consistent with ovarian etiology. This could represent a large endometrioma given the patient's history. 2. The distal small bowel is abnormal with dilatation, enhancement of the sanchez and multiple air-fluid levels. This is nonspecific but most likely is infectious or inflammatory. The more proximal small bowel and colon are decompressed and this is unlikely to represent obstruction. 3. Fatty infiltration of the liver. Vicente Minor MD Objective Remarks GENERAL: This is a well-nourished, well-developed patient, in no apparent distress. CARDIOVASCULAR: Regular rate and regular rhythm without murmurs, gallops, or rubs. RESPIRATORY: Clear to auscultation. Breath sounds equal bilaterally. No wheezes , rales, or rhonchi. GASTROINTESTINAL: Abdomen soft, mild epigastric tenderness, nondistended. Normal, active bowel sounds MUSCULOSKELETAL: Extremities without clubbing, cyanosis, or edema. NEURO: Alert & Oriented x4 to person, place, time, situation. Moves all ext x4 Procedures none Medications and IVs Current Medications Ondansetron HCl 4 mg 4 mg ONCE ONCE IVP Last administered on 06/16/16 17:07; Start 06/16/16 at 16:45; Stop 06/16/16 at 16:46; Status DC Sodium Chloride (NS 1000 ml Inj) 1,000 ml @ 1,000 mls/hr Q1H IV Last administered on 06/16/16 17:07; Start 06/16/16 at 16:40; Stop 06/16/16 at 17:39 ; Status DC IV Flush (NS Flush) 2 ml UNSCH PRN IVF FLUSH AFTER USING IV ACCESS Last administered on 06/21/16 04:54; Start 06/16/16 at 16:45 Ketorolac Tromethamine (Toradol Inj) 30 mg ONCE ONCE IVP Last administered on 06/16/16 17:06; Start 06/16/16 at 16:45; Stop 06/16/16 at 16:46; Status DC Iohexol 100 ml 100 ml STK-MED ONCE IV Last administered on 06/16/16 18:16; Start 06/16/16 at 18:16; Stop 06/16/16 at 18:17; Status DC Ceftriaxone Sodium 1000 mg/ Sodium Chloride 100 ml @ 200 mls/hr ONCE ONCE IV Last administered on 06/16/16 18:52; Start 06/16/16 at 18:30; Stop 06/16/16 at 18:59; Status DC Potassium Chloride (KCl 20 Meq Premix Inj) 100 ml @ 50 mls/hr ONCE ONCE IV Last administered on 06/16/16 19:29; Start 06/16/16 at 18:30; Stop 06/16/16 at 20:29; Status DC Potassium Chloride 40 meq 40 meq ONCE ONCE PO Last administered on 06/16/16 18:52; Start 06/16/16 at 18:30; Stop 06/16/16 at 18:31; Status DC Magnesium Sulfate/ Dextrose 100 ml @ 100 mls/hr ONCE ONCE IV Last administered on 06/16/16 21:10; Start 06/16/16 at 18:30; Stop 06/16/16 at 19:29 ; Status DC Potassium Chloride/Sodium Chloride (NS + KCl 20 Meq Inj) 1,000 ml @ 125 mls/hr Q8H IV Last administered on 06/20/16 20:34; Start 06/16/16 at 21:00 Ondansetron HCl 4 mg 4 mg Q8H PRN IV PUSH NAUSEA Last administered on 03:27; Start 06/16/16 at 18:45 Metronidazole 100 ml @ 100 mls/hr ONCE ONCE IV Last administered on 21:10; Start 06/16/16 at 19:00; Stop 06/16/16 at 19:59; Status DC Metronidazole 100 ml @ 100 mls/hr Q6H IV Last administered on 06/21/16 02:51 ; Start 06/17/16 at 02:00 Ciprofloxacin/ Dextrose 200 ml @ 200 mls/hr Q12H IV Last administered on 21:36; Start 06/17/16 at 09:00 Potassium Chloride (KCl 20 Meq Premix Inj) 100 ml @ 50 mls/hr Q2H IV Last administered on 06/17/16 03:12; Start 06/16/16 at 21:30; Stop 06/17/16 at 01:29 ; Status DC Morphine Sulfate (Morphine Inj) 2 mg Q3H PRN IV PUSH pain >5 Last administered on 06/21/16 04:53; Start 06/16/16 at 21:15 Pantoprazole Sodium (Protonix Inj) 40 mg Q12H IV PUSH Last administered on 06/21 04:58; Start 06/18/16 at 17:00 Metoclopramide HCl (Reglan Inj) 10 mg Q8H IM Last administered on 06/18/16 16: 35; Start 06/18/16 at 16:00; Stop 06/18/16 at 18:14; Status DC Metoclopramide HCl (Reglan Inj) 10 mg Q8H IV Last administered on 06/20/16t 23: 51; Start 06/19/16 at 00:00 A/P Assessment and Plan A/P acute pancreatitis- improving slowly on liquid diet continue pain control lipase trending down; repeat lipase level in am consider stopping Lupron if ok with EDUCATION COORDINATOR continue PPI GI following Pelvic mass ( right ovarian mass per patient who is s/p left oophorectomy 02/05 ) - On Lupron from PCP -EDUCATION COORDINATOR consult appreciated and no surgical intervention at this time; will continue with conservative treatment Hypokalemia -replaced DVT prophylaxis - SCDAguila Franco MD Jun 21, 2016 08:59
[2016-06-21] MEDS: METOCLOPRAMIDE HCL 10 MG/2 ML VIAL IV SCH ×3 (09:31→23:23)
[2016-06-21] MEDS: CIPROFLOXACIN 400 MG PREMIX 200 ML IV SCH ×2 (10:40→22:43)
[2016-06-21 11:53] VITALS: BP 110/72; PULSE 88; RESP 20; TEMP 98.1; O2SAT 96
[2016-06-21] MEDS ORDERED: GADODIAMIDE PF 287 MG/ML 20 ML VIAL (for RAD MRI) IV ONE (12:43)
--- NOTE | 2016-06-21 13:35 | RADRPT ---
EXAM DATE/TIME: 06/21/2016 12:01 [facility] COMPARISON: CT ABDOMEN & PELVIS W/O CONTRAST, January 22, 2016, 10:32. CT ABDOMEN & PELVIS W CONTRAST, June 16, 2016, 18:11. MRCP W/O CONTRAST, June 19, 2016, 12:57. INDICATIONS : Upper abdomen pain since February. CONTRAST: 18 cc Omniscan (gadodiamide) IV MEDICAL HISTORY : None. SURGICAL HISTORY : LT OVARY REMOVED ENCOUNTER: Subsequent ACUITY: 4-6 days PAIN SCORE: 0/10 LOCATION: Bilateral upper quadrant ABDOMEN TECHNIQUE: Multiplanar, multisequence magnetic resonance imaging of the abdomen was performed without and with i ntravenous contrast. FINDINGS: MRI of the abdomen and pelvis was performed without and with contrast. Those performed exclude inflammatory process in the bowel. Upper abdomen contents are unremarkable. There are no inflammatory changes evident. There is no free fluid. Liver, spleen, pancreas and adrenals are unremarkable. There is asymmetric renal function. Again seen is the multi-loculated septated mass in the pelvis that contains fluid, fluid levels withi n. This is compressing the bladder and is in intimate association with the right adnexa which is rep laced by a cystic mass. The left adnexa is surgically absent. Small bowel appears unremarkable. There is no free fluid in the pelvis. CONCLUSION: 1. Persistent complex cystic lesion in the pelvis containing multiple septations. This has decreased in size of the last several exams. 2. There is no free fluid. 3. Definitive surgical evaluation may be of benefit. Adi Burns MD FACR on June 21, 2016 at 13:11 Board Certified Radiologist. This report was verified electronically.
[2016-06-21 16:00] VITALS: BP 146/89; PULSE 82; RESP 20; TEMP 97.6; O2SAT 98
[2016-06-21 20:00] VITALS: BP 140/85; PULSE 99; RESP 18; TEMP 97.2; O2SAT 100
[2016-06-22] VITALS: BP 139/81; PULSE 86; RESP 18; TEMP 97.8; O2SAT 98
[2016-06-22] MEDS: MORPHINE SULFATE 4 MG/ML INJ IV PUSH PRN ×7 (02:44→20:58)
[2016-06-22] MEDS: metroNIDAZOLE 500 MG INJ 100 ML IV SCH ×4 (02:50→19:39)
[2016-06-22] MEDS: NS + KCL 20 MEQ INJ 1,000 ML IV SCH ×3 (02:51→19:39)
[2016-06-22 04:00] VITALS: BP 132/79; PULSE 89; RESP 18; TEMP 96.7; O2SAT 98
[2016-06-22] MEDS: PANTOPRAZOLE SODIUM 40 MG VIAL IV PUSH SCH ×2 (05:12→18:15)
[2016-06-22 06:23] LABS: AUTOMATED NEUTROPHIL # 1.9 TH/MM3 (1.8-7.7); BASOPHIL % 0.7 % (0.0-2.0); EOSINOPHIL # 0.2 TH/MM3 (0-0.4); EOSINOPHIL % 5.1 % (0.0-4.0); HEMATOCRIT 29.2 % (35.0-46.0); LYMPHOCYTE # 1.7 TH/MM3 (1.0-4.8); MEAN CELL VOLUME 80.7 FL (80.0-100.0); MEAN CORPUSCULAR HEMOGLOBIN 26.3 PG (27.0-34.0); MEAN CORPUSCULAR HGB CONC 32.6 % (32.0-36.0); MONO % 13.3 % (0.0-8.0); NEUT % 42.9 % (16.0-70.0); PLATELET COUNT 387 TH/MM3 (150-450); RED BLOOD COUNT 3.62 MIL/MM3 (4.00-5.30); RED CELL DISTRIBUTION WIDTH 22.4 % (11.6-17.2); WHITE BLOOD COUNT 4.3 TH/MM3 (4.0-11.0)
[2016-06-22 06:43] LABS: HEMO FLAGS AUTO DIFF
[2016-06-22 06:51] LABS: ALKALINE PHOSPHATASE 50 U/L (45-117); ALT (GPT) 12 U/L (10-53); ANION GAP 8 MEQ/L (5-15); AST (GOT) 12 U/L (15-37); BICARBONATE 28.7 MEQ/L (21.0-32.0); BLOOD UREA NITROGEN LESS THAN 1 MG/DL (7-18); CHLORIDE 103 MEQ/L (98-107); GLOMERULAR FILTRATION RATE 252 ML/MIN (>89); SODIUM (NA) 140 MEQ/L (136-145); TOTAL BILIRUBIN ADULT 0.4 MG/DL (0.2-1.0)
[2016-06-22 06:52] LABS: POTASSIUM 2.9 MEQ/L (3.5-5.1)
[2016-06-22 08:00] VITALS: BP 140/77; PULSE 86; RESP 16; TEMP 96.9; O2SAT 100
[2016-06-22 08:05] LABS: BASOPHILS 2 % (0-2); EOSINOPHILS 2 % (0-4); METAMYELOCYTES 1 % (0-1); MYELOCYTES 1 % (0-0); NEUTROPHIL # MANUAL DIFF 2.5 TH/MM3 (1.8-7.7); POLYS (SEG NEUTROPHILS) 57 % (16-70); WBC DIFF SAMPLE 100
[2016-06-22 08:06] LABS: PLATELET ESTIMATE SMEAR NORMAL (NORMAL); PLATELET MORPHOLOGY NORMAL (NORMAL); SCAN/DIFF FINAL DIFF MANUAL
[2016-06-22] MEDS ORDERED: POTASSIUM CHLORIDE 10 MEQ CONTROLLED RELEASE TAB PO ONE ×3 (08:30→16:00)
[2016-06-22] MEDS: CIPROFLOXACIN 400 MG PREMIX 200 ML IV SCH ×2 (08:59→19:39)
[2016-06-22] MEDS: METOCLOPRAMIDE HCL 10 MG/2 ML VIAL IV SCH ×2 (08:59→18:15)
--- NOTE | 2016-06-22 09:13 | HHI.PR ---
Subjective Remarks feeling better today. abdominal pain is better. no vomiting. d/w the RN and no acute issues over night. Objective Vitals Vital Signs Date Time Temp Pulse Resp B/P Pulse Ox O2 Delivery O2 Flow Rate FiO2 06/22/16 08:00 96.9 86 16 140/77 100 06/22/16 04:00 96.7 89 18 132/79 98 06/22/16 00:00 97.8 86 18 139/81 98 06/21/16 20:00 97.2 99 18 140/85 100 06/21/16 16:00 97.6 82 20 146/89 98 06/21/16 11:53 98.1 88 20 110/72 96 I/O 06/21/16 06/21/16 06/21/16 06/22/16 06/22/16 06/22/16 07:00 15:00 23:00 07:00 15:00 23:00 Intake Total 1075 ml 1290 ml 480 ml 1945 ml Output Total 100 ml Balance 975 ml 1290 ml 480 ml 1945 ml Intake Oral 240 ml 840 ml 480 ml 150 ml IV Total 835 ml 450 ml 1795 ml Output Emesis 100 ml # Voids 3 2 1 1 # Bowel Movements 0 Result Diagram: 06/22/16 0537 06/22/16 0537 Imaging Last Impressions Abdomen MRI 06/21/16 0000 Signed Impressions: Service Date/Time: Tuesday, June 21, 2016 12:01 - CONCLUSION: 1. Persistent complex cystic lesion in the pelvis containing multiple septations. This has decreased in size of the last several exams. 2. There is no free fluid. 3. Definitive surgical evaluation may be of benefit. Adi Burns MD FACR Cholangiopancreatography MRI 06/19/16 0000 Signed Impressions: Service Date/Time: Sunday, June 19, 2016 12:57 - CONCLUSION: 1. No evidence of any definite gallstones or biliary tract obstruction. 2. There appears to be edema and fluid surrounding the pancreas and extending to the right paracolic gutter suggestive of pancreatitis. Recommend correlation with patient's laboratory values. Yohan De Oliveira MD Abdomen/Pelvis CT 06/16/16 0000 Signed Impressions: Service Date/Time: Thursday, June 16, 2016 18:11 - CONCLUSION: 1. Large complex septated pelvic mass again noted which is decreased in size from the prior study. This remains most consistent with ovarian etiology. This could represent a large endometrioma given the patient's history. 2. The distal small bowel is abnormal with dilatation, enhancement of the sanchez and multiple air-fluid levels. This is nonspecific but most likely is infectious or inflammatory. The more proximal small bowel and colon are decompressed and this is unlikely to represent obstruction. 3. Fatty infiltration of the liver. Vicente Minor MD Objective Remarks GENERAL: This is a well-nourished, well-developed patient, in no apparent distress. CARDIOVASCULAR: Regular rate and regular rhythm without murmurs, gallops, or rubs. RESPIRATORY: Clear to auscultation. Breath sounds equal bilaterally. No wheezes , rales, or rhonchi. GASTROINTESTINAL: Abdomen soft, mild epigastric tenderness, nondistended. Normal, active bowel sounds MUSCULOSKELETAL: Extremities without clubbing, cyanosis, or edema. NEURO: Alert & Oriented x4 to person, place, time, situation. Moves all ext x4 Procedures none Medications and IVs Current Medications Ondansetron HCl 4 mg 4 mg ONCE ONCE IVP Last administered on 06/16/16 17:07; Start 06/16/16 at 16:45; Stop 06/16/16 at 16:46; Status DC Sodium Chloride (NS 1000 ml Inj) 1,000 ml @ 1,000 mls/hr Q1H IV Last administered on 06/16/16 17:07; Start 06/16/16 at 16:40; Stop 06/16/16 at 17:39 ; Status DC IV Flush (NS Flush) 2 ml UNSCH PRN IVF FLUSH AFTER USING IV ACCESS Last administered on 06/21/16 20:11; Start 06/16/16 at 16:45 Ketorolac Tromethamine (Toradol Inj) 30 mg ONCE ONCE IVP Last administered on 06/16/16 17:06; Start 06/16/16 at 16:45; Stop 06/16/16 at 16:46; Status DC Iohexol 100 ml 100 ml STK-MED ONCE IV Last administered on 06/16/16 18:16; Start 06/16/16 at 18:16; Stop 06/16/16 at 18:17; Status DC Ceftriaxone Sodium 1000 mg/ Sodium Chloride 100 ml @ 200 mls/hr ONCE ONCE IV Last administered on 06/16/16 18:52; Start 06/16/16 at 18:30; Stop 06/16/16 at 18:59; Status DC Potassium Chloride (KCl 20 Meq Premix Inj) 100 ml @ 50 mls/hr ONCE ONCE IV Last administered on 06/16/16 19:29; Start 06/16/16 at 18:30; Stop 06/16/16 at 20:29; Status DC Potassium Chloride 40 meq 40 meq ONCE ONCE PO Last administered on 06/16/16 18:52; Start 06/16/16 at 18:30; Stop 06/16/16 at 18:31; Status DC Magnesium Sulfate/ Dextrose 100 ml @ 100 mls/hr ONCE ONCE IV Last administered on 06/16/16 21:10; Start 06/16/16 at 18:30; Stop 06/16/16 at 19:29 ; Status DC Potassium Chloride/Sodium Chloride (NS + KCl 20 Meq Inj) 1,000 ml @ 125 mls/hr Q8H IV Last administered on 06/21/16 22:43; Start 06/16/16 at 21:00 Ondansetron HCl 4 mg 4 mg Q8H PRN IV PUSH NAUSEA Last administered on 03:27; Start 06/16/16 at 18:45 Metronidazole 100 ml @ 100 mls/hr ONCE ONCE IV Last administered on 21:10; Start 06/16/16 at 19:00; Stop 06/16/16 at 19:59; Status DC Metronidazole 100 ml @ 100 mls/hr Q6H IV Last administered on 06/22/16 08:59 ; Start 06/17/16 at 02:00 Ciprofloxacin/ Dextrose 200 ml @ 200 mls/hr Q12H IV Last administered on 08:59; Start 06/17/16 at 09:00 Potassium Chloride (KCl 20 Meq Premix Inj) 100 ml @ 50 mls/hr Q2H IV Last administered on 06/17/16 03:12; Start 06/16/16 at 21:30; Stop 06/17/16 at 01:29 ; Status DC Morphine Sulfate (Morphine Inj) 2 mg Q3H PRN IV PUSH pain >5 Last administered on 06/22/16 08:54; Start 06/16/16 at 21:15 Pantoprazole Sodium (Protonix Inj) 40 mg Q12H IV PUSH Last administered on 06/22 05:12; Start 06/18/16 at 17:00 Metoclopramide HCl (Reglan Inj) 10 mg Q8H IM Last administered on 06/18/16 16: 35; Start 06/18/16 at 16:00; Stop 06/18/16 at 18:14; Status DC Metoclopramide HCl (Reglan Inj) 10 mg Q8H IV Last administered on 06/22/16 08: 59; Start 06/19/16 at 00:00 Gadodiamide (Omniscan Pf Inj) 18 ml STK-MED ONCE IV Last administered on 12:43; Start 06/21/16 at 12:43; Stop 06/21/16 at 12:44; Status DC Potassium Chloride (KCl) 30 meq ONCE ONCE PO Last administered on 06/22/16 08 :56; Start 06/22/16 at 08:30; Stop 06/22/16 at 08:31; Status DC Potassium Chloride (KCl) 30 meq ONCE ONCE PO ; Start 06/22/16 at 12:00; Stop at 12:01 Potassium Chloride (KCl) 30 meq ONCE ONCE PO ; Start 06/22/16 at 16:00; Stop at 16:01 A/P Assessment and Plan A/P acute pancreatitis- improving slowly on liquid diet- will advance the diet. continue pain control lipase trending down; repeat lipase level in am consider stopping Lupron if ok with VERIFICATION ENGINEER continue PPI GI following Pelvic mass ( right ovarian mass per patient who is s/p left oophorectomy 02/05 ) - On Lupron from PCP- however this might need to be stopped due to pancreatitis - this will be deferred to VERIFICATION ENGINEER/ PCP. -VERIFICATION ENGINEER consult appreciated and no surgical intervention at this time; will continue with conservative treatment Hypokalemia -will replace- monitor the level. DVT prophylaxis - SCDs Discharge Planning possible dc home in am if continues to improve and ok with GI. Aguila Beltran MD Jun 22, 2016 09:12
[2016-06-22] MEDS ORDERED: MAGNESIUM HYDROXIDE SUSP 30 ML CUP PO PRN (09:15)
[2016-06-22 12:00] VITALS: BP 139/86; PULSE 81; RESP 16; TEMP 98.1; O2SAT 100
[2016-06-22 16:00] VITALS: BP 109/75; PULSE 89; RESP 16; TEMP 97.3; O2SAT 98
--- NOTE | 2016-06-22 17:48 | HHI.GIFU ---
Subjective Remarks States she tolerated the clear liquid diet yesterday, but has not had anything today- states just no appetite. D/W patient attempting to eat something and she states she will try full liquids tonight. She has nausea, abdominal pain- improved but still there. (Hailey Baez) Objective Vitals I&O Vital Signs Date Time Temp Pulse Resp B/P Pulse Ox O2 Delivery O2 Flow Rate FiO2 06/22/16 16:00 97.3 89 16 109/75 98 06/22/16 12:00 98.1 81 16 139/86 100 06/22/16 08:00 96.9 86 16 140/77 100 06/22/16 04:00 96.7 89 18 132/79 98 06/22/16 00:00 97.8 86 18 139/81 98 06/21/16 20:00 97.2 99 18 140/85 100 I/O 06/21/16 06/21/16 06/21/16 06/22/16 06/22/16 06/22/16 07:00 15:00 23:00 07:00 15:00 23:00 Intake Total 1075 ml 1290 ml 480 ml 1945 ml 240 ml Output Total 100 ml Balance 975 ml 1290 ml 480 ml 1945 ml 240 ml Intake Oral 240 ml 840 ml 480 ml 150 ml 240 ml IV Total 835 ml 450 ml 1795 ml Output Emesis 100 ml # Voids 3 2 1 1 4 # Bowel Movements 0 Laboratory Laboratory Tests Test 06/22/16 05:37 White Blood Count 4.3 Red Blood Count 3.62 Hemoglobin 9.5 Hematocrit 29.2 Mean Corpuscular Volume 80.7 Mean Corpuscular Hemoglobin 26.3 Mean Corpuscular Hemoglobin 32.6 Concent Red Cell Distribution Width 22.4 Platelet Count 387 Mean Platelet Volume 6.9 Neutrophils (%) (Auto) 42.9 Lymphocytes (%) (Auto) 38.0 Monocytes (%) (Auto) 13.3 Eosinophils (%) (Auto) 5.1 Basophils (%) (Auto) 0.7 Neutrophils # (Auto) 1.9 Lymphocytes # (Auto) 1.7 Monocytes # (Auto) 0.6 Eosinophils # (Auto) 0.2 Basophils # (Auto) 0.0 CBC Comment AUTO DIFF Differential Total Cells 100 Counted Neutrophils % (Manual) 57 Lymphocytes % 32 Monocytes % 5 Eosinophils % 2 Basophils % 2 Neutrophils # (Manual) 2.5 Metamyelocytes 1 Myelocytes 1 Differential Comment FINAL DIFF MANUAL Platelet Estimate NORMAL Platelet Morphology Comment NORMAL Sodium Level 140 Potassium Level 2.9 Chloride Level 103 Carbon Dioxide Level 28.7 Anion Gap 8 Blood Urea Nitrogen LESS THAN 1 Creatinine 0.38 Estimat Glomerular Filtration 252 Rate Random Glucose 90 Calcium Level 7.5 Total Bilirubin 0.4 Aspartate Amino Transf 12 (AST/SGOT) Alanine Aminotransferase 12 (ALT/SGPT) Alkaline Phosphatase 50 Total Protein 5.2 Albumin 1.9 Lipase 756 Imaging Last Impressions Abdomen MRI 06/21/16 0000 Signed Impressions: Service Date/Time: Tuesday, June 21, 2016 12:01 - CONCLUSION: 1. Persistent complex cystic lesion in the pelvis containing multiple septations. This has decreased in size of the last several exams. 2. There is no free fluid. 3. Definitive surgical evaluation may be of benefit. Adi Burns MD FACR Cholangiopancreatography MRI 06/19/16 0000 Signed Impressions: Service Date/Time: Sunday, June 19, 2016 12:57 - CONCLUSION: 1. No evidence of any definite gallstones or biliary tract obstruction. 2. There appears to be edema and fluid surrounding the pancreas and extending to the right paracolic gutter suggestive of pancreatitis. Recommend correlation with patient's laboratory values. Yohan De Oliveira MD Abdomen/Pelvis CT 06/16/16 0000 Signed Impressions: Service Date/Time: Thursday, June 16, 2016 18:11 - CONCLUSION: 1. Large complex septated pelvic mass again noted which is decreased in size from the prior study. This remains most consistent with ovarian etiology. This could represent a large endometrioma given the patient's history. 2. The distal small bowel is abnormal with dilatation, enhancement of the sanchez and multiple air-fluid levels. This is nonspecific but most likely is infectious or inflammatory. The more proximal small bowel and colon are decompressed and this is unlikely to represent obstruction. 3. Fatty infiltration of the liver. Vicente Minor MD Physical Exam HEENT: Normocephalic; atraumatic; no jaundice. Throat is clear. NECK: Neck is supple, no JVD, no lymphadenopathy. CHEST: CTA CARDIAC: RRR ABDOMEN: Soft, nondistended, mild diffuse tenderness; no hepatosplenomegaly; bowel sounds are present in all four quadrants. EXTREMITIES: No clubbing, cyanosis, or edema. SKIN: Normal; no rash; no jaundice. LAUNDRY MARKER SUPERVISOR: No focal deficits; alert and oriented times three. (BaezHailey gina FIELD) Assessment and Plan Plan ASSESSMENT: - Abdominal pain with nausea, vomiting. Pt from [place], attends school here at [facility]. In January, she was found to have a large pelvic mass with ascites and small bowel obstruction. She underwent diagnostic laparoscopy, laparoscopic left oophorectomy and cystectomy, peritoneal and ovarian biopsy laparoscopic with frozen section, and abdominal washout on 01/23/[address] Ta. Pathology revealed fibrotic tissue with hemosiderin laden macrophages, ovarian tissue with fibrosis and focal hemosiderin deposition, one detached fragment of tissue suspicious for endometrial stroma, endometrioma, cystic structure containing degenerating blood with hemosiderin laden macrophages and fibrosis in the wall, adjacent fragment of endometriosis. She has continued to have n/v, inability to tolerate po. She was started on Lupron in April of 2016, but was having symptoms prior to this. She has had workup in [place], states they did HIDA to look at her gb and this was normal. She recently had EGD on 05/25/[address] Norma Simental in [place] and this was unremarkable other than a hiatal hernia. She was placed on a trial of protonix, but she felt that this made her symptoms worse and therefore she did not continue it. Abnormal wt. loss 55 lbs, with n/v about five minutes after trying to eat. + BM, last night. Denies constipation/bloating. Abdomen/Pelvis CT (06/16/16)---> 1. Large complex septated pelvic mass again noted which is decreased in size from the prior study. This remains most consistent with ovarian etiology. This could represent a large endometrioma given the patient's history. 2. The distal small bowel is abnormal with dilatation, enhancement of the sanchez and multiple air-fluid levels. This is nonspecific but most likely is infectious or inflammatory. The more proximal small bowel and colon are decompressed and this is unlikely to represent obstruction. 3. Fatty infiltration of the liver. RECORDS from [place]: EGD (05/25/16)---> mild gastritis in antrum and a small sliding hiatal hernia, otherwise normal upper endoscopy. Pathology with mild chronic gastritis, no h pylori. Cipro/Flagyl. Zofran. Clear liquids. Dr. Tolbert consulted for suspected obstructive process related to mass. - Pancreatitis, ? secondary to Lupron. Abdomen MRI (06/21/16)----> 1. Persistent complex cystic lesion in the pelvis containing multiple septations. This has decreased in size of the last several exams. 2. There is no free fluid. 3. Definitive surgical evaluation may be of benefit. MRCP (06/19/16)---> 1. No evidence of any definite gallstones or biliary tract obstruction. 2. There appears to be edema and fluid surrounding the pancreas and extending to the right paracolic gutter suggestive of pancreatitis. Recommend correlation with patient's laboratory values. Lipase trending down---> 756. Tolerated clears yesterday, but has not tried full liquids today, states no appetite. Will try for dinner. - Abnormal weight loss. 55 lb weight loss since January. - Endometriosis, s/p diagnostic laparoscopy, laparoscopic left oophorectomy and cystectomy, peritoneal and ovarian biopsy laparoscopic with frozen section, and abdominal washout on 01/23/[address] Ta. Pathology revealed fibrotic tissue with hemosiderin laden macrophages, ovarian tissue with fibrosis and focal hemosiderin deposition, one detached fragment of tissue suspicious for endometrial stroma, endometrioma, cystic structure containing degenerating blood with hemosiderin laden macrophages and fibrosis in the wall, adjacent fragment of endometriosis. Lupron PLAN: - Full liquids - Ensure - Cont. Cipro/Flagyl - Cont. Zofran prn - Dr. Tolbert following - Further recommendations to follow after results of above - Will see how she does with dinner and repeat labs prior to clearing for d/c tomorrow - Pt seen and examined by Dr. Lovell and myself and this note is written on his behalf (Hailey Baez) Physician Comments Patient seen and examined Agree with above Continue with current supportive care Monitor labs Low-fat diet Continue with pain control (Devonte Lovell MD) Hailey Baez Jun 22, 2016 17:48 Devonte Lovell MD Jun 22, 2016 18:28
[2016-06-22 20:00] VITALS: BP 116/86; PULSE 95; RESP 18; TEMP 97.6; O2SAT 100
[2016-06-23] VITALS: BP 111/84; PULSE 89; RESP 18; TEMP 96.5; O2SAT 100
[2016-06-23] MEDS: METOCLOPRAMIDE HCL 10 MG/2 ML VIAL IV SCH ×4 (00:06→22:38)
[2016-06-23] MEDS: MORPHINE SULFATE 4 MG/ML INJ IV PUSH PRN ×7 (00:07→22:38)
[2016-06-23] MEDS: metroNIDAZOLE 500 MG INJ 100 ML IV SCH ×4 (00:07→19:19)
[2016-06-23] MEDS: NS + KCL 20 MEQ INJ 1,000 ML IV SCH ×3 (03:32→19:19)
[2016-06-23] MEDS: PANTOPRAZOLE SODIUM 40 MG VIAL IV PUSH SCH ×2 (03:32→17:00)
[2016-06-23 04:00] VITALS: BP 116/74; PULSE 100; RESP 18; TEMP 96.8; O2SAT 99
--- NOTE | 2016-06-23 07:50 | PD.ONC.PN ---
Subjective Subjective Remarks pt states she tried to eat jello but she then vomited it back up no pain at this time is out of bed to bathroom Objective Data Date Time Temp Pulse Resp B/P Pulse Ox O2 Delivery O2 Flow Rate FiO2 06/23/16 04:00 96.8 100 18 116/74 99 06/23/16 03:36 18 06/23/16 00:00 96.5 89 18 111/84 100 06/22/16 20:00 97.6 95 18 116/86 100 06/22/16 16:00 97.3 89 16 109/75 98 06/22/16 12:00 98.1 81 16 139/86 100 06/22/16 08:00 96.9 86 16 140/77 100 Result Diagram: 06/22/1637 06/22/16536 Administered Medications Medications (Trade) Dose Ordered Sig/Juan Alberto Route PRN Reason Start Time Stop Time Status Last Admin Dose Admin IV Flush 2 ml 2 ml UNSCH PRN IVF FLUSH AFTER USING IV ACCESS 06/16/16 16:45 06/21/16 20:11 Potassium Chloride/Sodium Chloride (NS + KCl 20 Meq Inj) 1,000 ml @ 125 mls/hr Q8H IV 06/16/16 21:00 06/23/16 03:32 Ondansetron HCl 4 mg 4 mg Q8H PRN IV PUSH NAUSEA 06/16/16 18:45 06/20/16 03:27 Metronidazole 100 ml @ 100 mls/hr Q6H IV 06/17/16 02:00 06/23/16 00:07 Ciprofloxacin/ Dextrose (Cipro 400 Mg Premix) 200 ml @ 200 mls/hr Q12H IV 06/17/16 09:00 06/22/16 19:39 Morphine Sulfate (Morphine Inj) 2 mg Q3H PRN IV PUSH pain >5 06/16/16 21:15 06/23/16 03:30 Pantoprazole Sodium (Protonix Inj) 40 mg Q12H IV PUSH 06/18/16 17:00 06/23/16 03:32 Metoclopramide HCl (Reglan Inj) 10 mg Q8H IV 06/19/16 00:00 06/23/16 00:06 Objective Remarks GENERAL: Well-nourished, well-developed patient. SKIN: Warm and dry. HEAD: Normocephalic. EYES: No scleral icterus. No injection or drainage. EXTREMITIES: No cyanosis, or edema. MUSCULOSKELETAL: Adequate muscle tone. NEUROLOGICAL: No obvious focal deficit. Awake, alert, and oriented x3. PSYCHIATRIC: Appropriate mood and affect; insight and judgment normal. Assessment/Plan Problem List: (1) Ovarian mass Status: Acute Plan: Dr. Tolbert wishes to avoid surgery and putting someone so young into menopause unsure if recent hospitalization/pancreatitis is related to Depo Lupron inj. as some of her symptoms started prior to injections (2) Small bowel obstruction Status: Acute Plan: GI following trying to advance diet but still having vomiting Naun Galarza Jun 23, 2016 07:49
[2016-06-23 08:00] VITALS: BP 130/80; PULSE 89; RESP 16; TEMP 97.6; O2SAT 100
--- NOTE | 2016-06-23 08:12 | HHI.PR ---
Subjective Remarks in no distress. no nausea this morning. abdominal pain is mild. Objective Vitals Vital Signs Date Time Temp Pulse Resp B/P Pulse Ox O2 Delivery O2 Flow Rate FiO2 06/23/16 04:00 96.8 100 18 116/74 99 06/23/16 03:36 18 06/23/16 00:00 96.5 89 18 111/84 100 06/22/16 20:00 97.6 95 18 116/86 100 06/22/16 16:00 97.3 89 16 109/75 98 06/22/16 12:00 98.1 81 16 139/86 100 I/O 06/22/16 06/22/16 06/22/16 06/23/16 06/23/16 06/23/16 07:00 15:00 23:00 07:00 15:00 23:00 Intake Total 1945 ml 240 ml 150 ml 3103 ml Output Total 650 ml Balance 1945 ml 240 ml -500 ml 3103 ml Intake Oral 150 ml 240 ml 150 ml 100 ml IV Total 1795 ml 3003 ml Output Urine Total 650 ml # Voids 1 4 2 2 Result Diagram: 06/22/16 0537 06/22/16 0537 Imaging Last Impressions Abdomen MRI 06/21/16 0000 Signed Impressions: Service Date/Time: Tuesday, June 21, 2016 12:01 - CONCLUSION: 1. Persistent complex cystic lesion in the pelvis containing multiple septations. This has decreased in size of the last several exams. 2. There is no free fluid. 3. Definitive surgical evaluation may be of benefit. Adi Burns MD FACR Cholangiopancreatography MRI 06/19/16 0000 Signed Impressions: Service Date/Time: Sunday, June 19, 2016 12:57 - CONCLUSION: 1. No evidence of any definite gallstones or biliary tract obstruction. 2. There appears to be edema and fluid surrounding the pancreas and extending to the right paracolic gutter suggestive of pancreatitis. Recommend correlation with patient's laboratory values. Yohan De Oliveira MD Abdomen/Pelvis CT 06/16/16 0000 Signed Impressions: Service Date/Time: Thursday, June 16, 2016 18:11 - CONCLUSION: 1. Large complex septated pelvic mass again noted which is decreased in size from the prior study. This remains most consistent with ovarian etiology. This could represent a large endometrioma given the patient's history. 2. The distal small bowel is abnormal with dilatation, enhancement of the sanchez and multiple air-fluid levels. This is nonspecific but most likely is infectious or inflammatory. The more proximal small bowel and colon are decompressed and this is unlikely to represent obstruction. 3. Fatty infiltration of the liver. Vicente Minor MD Objective Remarks GENERAL: This is a well-nourished, well-developed patient, in no apparent distress. CARDIOVASCULAR: Regular rate and regular rhythm without murmurs, gallops, or rubs. RESPIRATORY: Clear to auscultation. Breath sounds equal bilaterally. No wheezes , rales, or rhonchi. GASTROINTESTINAL: Abdomen soft, mild epigastric tenderness, nondistended. Normal, active bowel sounds MUSCULOSKELETAL: Extremities without clubbing, cyanosis, or edema. NEURO: Alert & Oriented x4 to person, place, time, situation. Moves all ext x4 Procedures none Medications and IVs Current Medications Ondansetron HCl 4 mg 4 mg ONCE ONCE IVP Last administered on 06/16/16 17:07; Start 06/16/16 at 16:45; Stop 06/16/16 at 16:46; Status DC Sodium Chloride (NS 1000 ml Inj) 1,000 ml @ 1,000 mls/hr Q1H IV Last administered on 06/16/16 17:07; Start 06/16/16 at 16:40; Stop 06/16/16 at 17:39 ; Status DC IV Flush (NS Flush) 2 ml UNSCH PRN IVF FLUSH AFTER USING IV ACCESS Last administered on 06/21/16 20:11; Start 06/16/16 at 16:45 Ketorolac Tromethamine (Toradol Inj) 30 mg ONCE ONCE IVP Last administered on 06/16/16 17:06; Start 06/16/16 at 16:45; Stop 06/16/16 at 16:46; Status DC Iohexol 100 ml 100 ml STK-MED ONCE IV Last administered on 06/16/16 18:16; Start 06/16/16 at 18:16; Stop 06/16/16 at 18:17; Status DC Ceftriaxone Sodium 1000 mg/ Sodium Chloride 100 ml @ 200 mls/hr ONCE ONCE IV Last administered on 06/16/16 18:52; Start 06/16/16 at 18:30; Stop 06/16/16 at 18:59; Status DC Potassium Chloride (KCl 20 Meq Premix Inj) 100 ml @ 50 mls/hr ONCE ONCE IV Last administered on 06/16/16 19:29; Start 06/16/16 at 18:30; Stop 06/16/16 at 20:29; Status DC Potassium Chloride 40 meq 40 meq ONCE ONCE PO Last administered on 06/16/16 18:52; Start 06/16/16 at 18:30; Stop 06/16/16 at 18:31; Status DC Magnesium Sulfate/ Dextrose 100 ml @ 100 mls/hr ONCE ONCE IV Last administered on 06/16/16 21:10; Start 06/16/16 at 18:30; Stop 06/16/16 at 19:29 ; Status DC Potassium Chloride/Sodium Chloride (NS + KCl 20 Meq Inj) 1,000 ml @ 125 mls/hr Q8H IV Last administered on 06/23/16 03:32; Start 06/16/16 at 21:00 Ondansetron HCl 4 mg 4 mg Q8H PRN IV PUSH NAUSEA Last administered on 03:27; Start 06/16/16 at 18:45 Metronidazole 100 ml @ 100 mls/hr ONCE ONCE IV Last administered on 21:10; Start 06/16/16 at 19:00; Stop 06/16/16 at 19:59; Status DC Metronidazole 100 ml @ 100 mls/hr Q6H IV Last administered on 06/23/16 00:07; Start 06/17/16 at 02:00 Ciprofloxacin/ Dextrose 200 ml @ 200 mls/hr Q12H IV Last administered on 19:39; Start 06/17/16 at 09:00 Potassium Chloride (KCl 20 Meq Premix Inj) 100 ml @ 50 mls/hr Q2H IV Last administered on 06/17/16 03:12; Start 06/16/16 at 21:30; Stop 06/17/16 at 01:29 ; Status DC Morphine Sulfate (Morphine Inj) 2 mg Q3H PRN IV PUSH pain >5 Last administered on 06/23/16 03:30; Start 06/16/16 at 21:15 Pantoprazole Sodium (Protonix Inj) 40 mg Q12H IV PUSH Last administered on 03:32; Start 06/18/16 at 17:00 Metoclopramide HCl (Reglan Inj) 10 mg Q8H IM Last administered on 06/18/16 16: 35; Start 06/18/16 at 16:00; Stop 06/18/16 at 18:14; Status DC Metoclopramide HCl (Reglan Inj) 10 mg Q8H IV Last administered on 06/23/16 00: 06; Start 06/19/16 at 00:00 Gadodiamide (Omniscan Pf Inj) 18 ml STK-MED ONCE IV Last administered on 12:43; Start 06/21/16 at 12:43; Stop 06/21/16 at 12:44; Status DC Potassium Chloride (KCl) 30 meq ONCE ONCE PO Last administered on 06/22/16 08 :56; Start 06/22/16 at 08:30; Stop 06/22/16 at 08:31; Status DC Potassium Chloride (KCl) 30 meq ONCE ONCE PO Last administered on 06/22/16 12 :28; Start 06/22/16 at 12:00; Stop 06/22/16 at 12:01; Status DC Potassium Chloride (KCl) 30 meq ONCE ONCE PO Last administered on 06/22/16 18 :13; Start 06/22/16 at 16:00; Stop 06/22/16 at 16:01; Status DC Magnesium Hydroxide (Milk Of Magnesia Liq) 30 ml DAILY PRN PO CONSTIPATION; Start 06/22/16 at 09:15 A/P Assessment and Plan A/P acute pancreatitis- improving slowly on liquid diet- will advance the diet to low fat diet today. continue pain control lipase trending down; repeat lipase level today pending consider stopping Lupron if ok with [employer] continue PPI GI following Pelvic mass ( right ovarian mass per patient who is s/p left oophorectomy 02/05 ) - On Lupron from PCP- however this might need to be stopped due to pancreatitis - this will be deferred to [employer]/ PCP. -[employer] consult appreciated and no surgical intervention at this time; will continue with conservative treatment Hypokalemia -replaced- monitor the level. DVT prophylaxis - SCDs Discharge Planning dc home later today or in am if can tolerate the diet. f/u; pcp,GI and [employer] as outpatient. see med list. d/w the patient. Aguila Beltran MD Jun 23, 2016 08:12
[2016-06-23] MEDS ORDERED: TRAM50TA PO (08:15)
--- NOTE | 2016-06-23 08:15 | HHI.DCPOC ---
Discharge Care Plan Diagnosis: (1) Abdominal pain Additional Problems abdominal pain, nausea/vomiting. Goals to Promote Your Health * To prevent worsening of your condition and complications * To maintain your health at the optimal level Directions to Meet Your Goals Take your medications as prescribed Follow your dietary instruction Follow activity as directed Keep your appointments as scheduled Take your immunizations and boosters as scheduled If your symptoms worsen call your PCP, if no PCP go to Urgent Care Center or Emergency Room Smoking is Dangerous to Your Health. Avoid second hand smoke Call the 24-hour hour crisis hotline for domestic abuse at Aguila Beltran MD Jun 23, 2016 08:15
[2016-06-23 08:38] LABS: POTASSIUM 3.3 MEQ/L (3.5-5.1)
--- NOTE | 2016-06-23 09:44 | HHI.GIFU ---
Subjective Remarks Resting in bed. Attempted some cheerios today, but states this made her very nauseous- no vomiting. Continues to have abdominal pain, for which she is taking IV pain meds. (Hailey Baez) Objective Vitals I&O Vital Signs Date Time Temp Pulse Resp B/P Pulse Ox O2 Delivery O2 Flow Rate FiO2 06/23/16 08:00 97.6 89 16 130/80 100 06/23/16 04:00 96.8 100 18 116/74 99 06/23/16 03:36 18 06/23/16 00:00 96.5 89 18 111/84 100 06/22/16 20:00 97.6 95 18 116/86 100 06/22/16 16:00 97.3 89 16 109/75 98 06/22/16 12:00 98.1 81 16 139/86 100 I/O 06/22/16 06/22/16 06/22/16 06/23/16 06/23/16 06/23/16 07:00 15:00 23:00 07:00 15:00 23:00 Intake Total 1945 ml 240 ml 150 ml 3103 ml Output Total 650 ml Balance 1945 ml 240 ml -500 ml 3103 ml Intake Oral 150 ml 240 ml 150 ml 100 ml IV Total 1795 ml 3003 ml Output Urine Total 650 ml # Voids 1 4 2 2 Laboratory Laboratory Tests Test 06/23/16 06:07 Potassium Level 3.3 Lipase 676 Imaging Last Impressions Abdomen MRI 06/21/16 0000 Signed Impressions: Service Date/Time: Tuesday, June 21, 2016 12:01 - CONCLUSION: 1. Persistent complex cystic lesion in the pelvis containing multiple septations. This has decreased in size of the last several exams. 2. There is no free fluid. 3. Definitive surgical evaluation may be of benefit. Adi Burns MD FACR Cholangiopancreatography MRI 06/19/16 0000 Signed Impressions: Service Date/Time: Sunday, June 19, 2016 12:57 - CONCLUSION: 1. No evidence of any definite gallstones or biliary tract obstruction. 2. There appears to be edema and fluid surrounding the pancreas and extending to the right paracolic gutter suggestive of pancreatitis. Recommend correlation with patient's laboratory values. Yohan De Oliveira MD Abdomen/Pelvis CT 06/16/16 0000 Signed Impressions: Service Date/Time: Thursday, June 16, 2016 18:11 - CONCLUSION: 1. Large complex septated pelvic mass again noted which is decreased in size from the prior study. This remains most consistent with ovarian etiology. This could represent a large endometrioma given the patient's history. 2. The distal small bowel is abnormal with dilatation, enhancement of the sanchez and multiple air-fluid levels. This is nonspecific but most likely is infectious or inflammatory. The more proximal small bowel and colon are decompressed and this is unlikely to represent obstruction. 3. Fatty infiltration of the liver. Vicente Minor MD Physical Exam HEENT: Normocephalic; atraumatic; no jaundice. Throat is clear. NECK: Neck is supple, no JVD, no lymphadenopathy. CHEST: CTA CARDIAC: RRR ABDOMEN: Soft, nondistended, mild diffuse tenderness; no hepatosplenomegaly; bowel sounds are present in all four quadrants. EXTREMITIES: No clubbing, cyanosis, or edema. SKIN: Normal; no rash; no jaundice. POWER TRANSFORMER ASSEMBLER: No focal deficits; alert and oriented times three. (Hailey Baez [facility]) Assessment and Plan Plan ASSESSMENT: - Abdominal pain with nausea, vomiting. Pt from [place], attends school here at [facility]. In January, she was found to have a large pelvic mass with ascites and small bowel obstruction. She underwent diagnostic laparoscopy, laparoscopic left oophorectomy and cystectomy, peritoneal and ovarian biopsy laparoscopic with frozen section, and abdominal washout on 01/23/[address] Ta. Pathology revealed fibrotic tissue with hemosiderin laden macrophages, ovarian tissue with fibrosis and focal hemosiderin deposition, one detached fragment of tissue suspicious for endometrial stroma, endometrioma, cystic structure containing degenerating blood with hemosiderin laden macrophages and fibrosis in the wall, adjacent fragment of endometriosis. She has continued to have n/v, inability to tolerate po. She was started on Lupron in April of 2016, but was having symptoms prior to this. She has had workup in [place], states they did HIDA to look at her gb and this was normal. She recently had EGD on 05/25/[address] Norma Simental in [place] and this was unremarkable other than a hiatal hernia. She was placed on a trial of protonix, but she felt that this made her symptoms worse and therefore she did not continue it. Abnormal wt. loss 55 lbs, with n/v about five minutes after trying to eat. + BM, last night. Denies constipation/bloating. Abdomen/Pelvis CT (06/16/16)---> 1. Large complex septated pelvic mass again noted which is decreased in size from the prior study. This remains most consistent with ovarian etiology. This could represent a large endometrioma given the patient's history. 2. The distal small bowel is abnormal with dilatation, enhancement of the sanchez and multiple air-fluid levels. This is nonspecific but most likely is infectious or inflammatory. The more proximal small bowel and colon are decompressed and this is unlikely to represent obstruction. 3. Fatty infiltration of the liver. RECORDS from [place]: EGD (05/25/16)---> mild gastritis in antrum and a small sliding hiatal hernia, otherwise normal upper endoscopy. Pathology with mild chronic gastritis, no h pylori. Cipro/Flagyl. Zofran. Clear liquids. Dr. Tolbert consulted for suspected obstructive process related to mass. - Pancreatitis, ? secondary to Lupron. Abdomen MRI (06/21/16)----> 1. Persistent complex cystic lesion in the pelvis containing multiple septations. This has decreased in size of the last several exams. 2. There is no free fluid. 3. Definitive surgical evaluation may be of benefit. MRCP (06/19/16)---> 1. No evidence of any definite gallstones or biliary tract obstruction. 2. There appears to be edema and fluid surrounding the pancreas and extending to the right paracolic gutter suggestive of pancreatitis. Recommend correlation with patient's laboratory values. Lipase trending down---> 676. She tried to take cheerios but states this was making her very nauseous. Still with abdominal pain and requiring IV pain meds. - Abnormal weight loss. 55 lb weight loss since January. - Endometriosis, s/p diagnostic laparoscopy, laparoscopic left oophorectomy and cystectomy, peritoneal and ovarian biopsy laparoscopic with frozen section, and abdominal washout on 01/23/[address] Ta. Pathology revealed fibrotic tissue with hemosiderin laden macrophages, ovarian tissue with fibrosis and focal hemosiderin deposition, one detached fragment of tissue suspicious for endometrial stroma, endometrioma, cystic structure containing degenerating blood with hemosiderin laden macrophages and fibrosis in the wall, adjacent fragment of endometriosis. Lupron PLAN: - Low fat diet as tolerated - Ensure - Cont. PPI - Cont. Reglan - Cont. Cipro/Flagyl - Cont. Zofran prn - Dr. Tolbert following - Recommend holding discharge today - Further recommendations to follow after results of above - Pt seen and examined by Dr. Lovell and myself and this note is written on his behalf (Hailey Baez) Physician Comments Patient seen and examined Agree with above Continue with current supportive care Monitor labs (Devonte Lovell MD) Hailey Baez Jun 23, 2016 09:44 Devonte Lovell MD Jun 23, 2016 10:49
[2016-06-23] MEDS: CIPROFLOXACIN 400 MG PREMIX 200 ML IV SCH ×2 (11:04→19:19)
[2016-06-23 12:00] VITALS: BP 118/83; PULSE 95; RESP 16; TEMP 96.6; O2SAT 100
[2016-06-23] MEDS ORDERED: POTASSIUM CHLORIDE 10 MEQ CONTROLLED RELEASE TAB PO ONE (12:00)
[2016-06-23 20:00] VITALS: BP 122/93; PULSE 92; RESP 18; TEMP 98.4; O2SAT 98
[2016-06-24] VITALS: BP 124/78; PULSE 90; RESP 18; TEMP 97.9; O2SAT 99
[2016-06-24] MEDS: metroNIDAZOLE 500 MG INJ 100 ML IV SCH ×4 (02:00→20:41)
[2016-06-24] MEDS: NS + KCL 20 MEQ INJ 1,000 ML IV SCH ×2 (02:04→17:04)
[2016-06-24] MEDS: MORPHINE SULFATE 4 MG/ML INJ IV PUSH PRN ×4 (02:04→12:43)
[2016-06-24 04:00] VITALS: BP 139/90; PULSE 108; RESP 18; TEMP 96.8; O2SAT 98
[2016-06-24] MEDS: PANTOPRAZOLE SODIUM 40 MG VIAL IV PUSH SCH ×2 (05:00→16:57)
[2016-06-24 08:00] VITALS: BP 130/77; PULSE 89; RESP 16; TEMP 98; O2SAT 100
[2016-06-24] MEDS: METOCLOPRAMIDE HCL 10 MG/2 ML VIAL IV SCH ×2 (08:13→16:57)
--- NOTE | 2016-06-24 09:12 | HHI.PR ---
Subjective Remarks in no distress. abdominal pain has improved. no nausea or vomiting today. Objective Vitals Vital Signs Date Time Temp Pulse Resp B/P Pulse Ox O2 Delivery O2 Flow Rate FiO2 06/24/16 08:00 98.0 89 16 130/77 100 06/24/16 04:00 96.8 108 18 139/90 98 06/24/16 02:20 18 06/24/16 00:00 97.9 90 18 124/78 99 06/23/16 20:00 98.4 92 18 122/93 98 06/23/16 12:00 96.6 95 16 118/83 100 I/O 06/23/16 06/23/16 06/23/16 06/24/16 06/24/16 06/24/16 07:00 15:00 23:00 07:00 15:00 23:00 Intake Total 3103 ml 400 ml 480 ml 1929 ml Output Total 350 ml 1500 ml 1400 ml Balance 3103 ml 50 ml -1020 ml 529 ml Intake Oral 100 ml 400 ml 480 ml 300 ml IV Total 3003 ml 1629 ml Output Urine Total 350 ml 1500 ml 1400 ml # Voids 2 Result Diagram: 06/22/16 0537 06/23/16 0607 Imaging Last Impressions Abdomen MRI 06/21/16 0000 Signed Impressions: Service Date/Time: Tuesday, June 21, 2016 12:01 - CONCLUSION: 1. Persistent complex cystic lesion in the pelvis containing multiple septations. This has decreased in size of the last several exams. 2. There is no free fluid. 3. Definitive surgical evaluation may be of benefit. Adi Burns MD FACR Cholangiopancreatography MRI 06/19/16 0000 Signed Impressions: Service Date/Time: Sunday, June 19, 2016 12:57 - CONCLUSION: 1. No evidence of any definite gallstones or biliary tract obstruction. 2. There appears to be edema and fluid surrounding the pancreas and extending to the right paracolic gutter suggestive of pancreatitis. Recommend correlation with patient's laboratory values. Yohan De Oliveira MD Abdomen/Pelvis CT 06/16/16 0000 Signed Impressions: Service Date/Time: Thursday, June 16, 2016 18:11 - CONCLUSION: 1. Large complex septated pelvic mass again noted which is decreased in size from the prior study. This remains most consistent with ovarian etiology. This could represent a large endometrioma given the patient's history. 2. The distal small bowel is abnormal with dilatation, enhancement of the sanchez and multiple air-fluid levels. This is nonspecific but most likely is infectious or inflammatory. The more proximal small bowel and colon are decompressed and this is unlikely to represent obstruction. 3. Fatty infiltration of the liver. Vicente Minor MD Objective Remarks GENERAL: This is a well-nourished, well-developed patient, in no apparent distress. CARDIOVASCULAR: Regular rate and regular rhythm without murmurs, gallops, or rubs. RESPIRATORY: Clear to auscultation. Breath sounds equal bilaterally. No wheezes , rales, or rhonchi. GASTROINTESTINAL: Abdomen soft, mild epigastric tenderness, nondistended. Normal, active bowel sounds MUSCULOSKELETAL: Extremities without clubbing, cyanosis, or edema. NEURO: Alert & Oriented x4 to person, place, time, situation. Moves all ext x4 Procedures none Medications and IVs Current Medications Ondansetron HCl 4 mg 4 mg ONCE ONCE IVP Last administered on 06/16/16 17:07; Start 06/16/16 at 16:45; Stop 06/16/16 at 16:46; Status DC Sodium Chloride (NS 1000 ml Inj) 1,000 ml @ 1,000 mls/hr Q1H IV Last administered on 06/16/16 17:07; Start 06/16/16 at 16:40; Stop 06/16/16 at 17:39 ; Status DC IV Flush (NS Flush) 2 ml UNSCH PRN IVF FLUSH AFTER USING IV ACCESS Last administered on 06/21/16 20:11; Start 06/16/16 at 16:45 Ketorolac Tromethamine (Toradol Inj) 30 mg ONCE ONCE IVP Last administered on 06/16/16 17:06; Start 06/16/16 at 16:45; Stop 06/16/16 at 16:46; Status DC Iohexol 100 ml 100 ml STK-MED ONCE IV Last administered on 06/16/16 18:16; Start 06/16/16 at 18:16; Stop 06/16/16 at 18:17; Status DC Ceftriaxone Sodium 1000 mg/ Sodium Chloride 100 ml @ 200 mls/hr ONCE ONCE IV Last administered on 06/16/16 18:52; Start 06/16/16 at 18:30; Stop 06/16/16 at 18:59; Status DC Potassium Chloride (KCl 20 Meq Premix Inj) 100 ml @ 50 mls/hr ONCE ONCE IV Last administered on 06/16/16 19:29; Start 06/16/16 at 18:30; Stop 06/16/16 at 20:29; Status DC Potassium Chloride 40 meq 40 meq ONCE ONCE PO Last administered on 06/16/16 18:52; Start 06/16/16 at 18:30; Stop 06/16/16 at 18:31; Status DC Magnesium Sulfate/ Dextrose 100 ml @ 100 mls/hr ONCE ONCE IV Last administered on 06/16/16 21:10; Start 06/16/16 at 18:30; Stop 06/16/16 at 19:29 ; Status DC Potassium Chloride/Sodium Chloride (NS + KCl 20 Meq Inj) 1,000 ml @ 125 mls/hr Q8H IV Last administered on 06/24/16 02:04; Start 06/16/16 at 21:00 Ondansetron HCl 4 mg 4 mg Q8H PRN IV PUSH NAUSEA Last administered on 03:27; Start 06/16/16 at 18:45 Metronidazole 100 ml @ 100 mls/hr ONCE ONCE IV Last administered on 21:10; Start 06/16/16 at 19:00; Stop 06/16/16 at 19:59; Status DC Metronidazole 100 ml @ 100 mls/hr Q6H IV Last administered on 06/24/16 08:12; Start 06/17/16 at 02:00 Ciprofloxacin/ Dextrose 200 ml @ 200 mls/hr Q12H IV Last administered on 19:19; Start 06/17/16 at 09:00 Potassium Chloride (KCl 20 Meq Premix Inj) 100 ml @ 50 mls/hr Q2H IV Last administered on 06/17/16 03:12; Start 06/16/16 at 21:30; Stop 06/17/16 at 01:29 ; Status DC Morphine Sulfate (Morphine Inj) 2 mg Q3H PRN IV PUSH pain >5 Last administered on 06/24/16 08:16; Start 06/16/16 at 21:15 Pantoprazole Sodium (Protonix Inj) 40 mg Q12H IV PUSH Last administered on 05:00; Start 06/18/16 at 17:00 Metoclopramide HCl (Reglan Inj) 10 mg Q8H IM Last administered on 06/18/16 16: 35; Start 06/18/16 at 16:00; Stop 06/18/16 at 18:14; Status DC Metoclopramide HCl (Reglan Inj) 10 mg Q8H IV Last administered on 06/24/16 08: 13; Start 06/19/16 at 00:00 Gadodiamide (Omniscan Pf Inj) 18 ml STK-MED ONCE IV Last administered on 12:43; Start 06/21/16 at 12:43; Stop 06/21/16 at 12:44; Status DC Potassium Chloride (KCl) 30 meq ONCE ONCE PO Last administered on 06/22/16 08 :56; Start 06/22/16 at 08:30; Stop 06/22/16 at 08:31; Status DC Potassium Chloride (KCl) 30 meq ONCE ONCE PO Last administered on 06/22/16 12 :28; Start 06/22/16 at 12:00; Stop 06/22/16 at 12:01; Status DC Potassium Chloride (KCl) 30 meq ONCE ONCE PO Last administered on 06/22/16 18 :13; Start 06/22/16 at 16:00; Stop 06/22/16 at 16:01; Status DC Magnesium Hydroxide (Milk Of Magnesia Liq) 30 ml DAILY PRN PO CONSTIPATION Last administered on 06/23/16 12:37; Start 06/22/16 at 09:15 Potassium Chloride (KCl) 40 meq ONCE ONCE PO Last administered on 06/23/16 12: 30; Start 06/23/16 at 12:00; Stop 06/23/16 at 12:01; Status DC A/P Assessment and Plan A/P acute pancreatitis- improving slowly advanced the diet to low fat diet . continue pain control lipase trending down; repeat lipase level today pending consider stopping Lupron if ok with CARD CUTTER HELPER continue PPI GI following Pelvic mass ( right ovarian mass per patient who is s/p left oophorectomy 02/05 ) - On Lupron from PCP- however this might need to be stopped due to pancreatitis - this will be deferred to CARD CUTTER HELPER/ PCP. -CARD CUTTER HELPER consult appreciated and no surgical intervention at this time; will continue with conservative treatment Hypokalemia -replaced- monitor the level. DVT prophylaxis - SCDs Discharge Planning dc home later today or in am if can tolerate the diet. f/u; pcp,GI and CARD CUTTER HELPER as outpatient. see med list. d/w the patient. Aguila Beltran MD Jun 24, 2016 09:12
[2016-06-24] MEDS: CIPROFLOXACIN 400 MG PREMIX 200 ML IV SCH ×2 (09:46→20:41)
[2016-06-24 11:16] LABS: POTASSIUM 3.3 MEQ/L (3.5-5.1)
[2016-06-24 12:00] VITALS: BP 142/85; PULSE 85; RESP 16; TEMP 97.6; O2SAT 100
--- NOTE | 2016-06-24 12:31 | HHI.GIFU ---
Subjective Remarks Pt reports that she continues to have abdominal pain, although now more in the RLQ than upper abdomen. Taking full liquids, but not much po still. (Hailey Baez) Objective Vitals I&O Vital Signs Date Time Temp Pulse Resp B/P Pulse Ox O2 Delivery O2 Flow Rate FiO2 06/24/16 08:00 98.0 89 16 130/77 100 06/24/16 04:00 96.8 108 18 139/90 98 06/24/16 02:20 18 06/24/16 00:00 97.9 90 18 124/78 99 06/23/16 20:00 98.4 92 18 122/93 98 I/O 06/23/16 06/23/16 06/23/16 06/24/16 06/24/16 06/24/16 07:00 15:00 23:00 07:00 15:00 23:00 Intake Total 3103 ml 400 ml 480 ml 1929 ml Output Total 350 ml 1500 ml 1400 ml Balance 3103 ml 50 ml -1020 ml 529 ml Intake Oral 100 ml 400 ml 480 ml 300 ml IV Total 3003 ml 1629 ml Output Urine Total 350 ml 1500 ml 1400 ml # Voids 2 Laboratory Laboratory Tests Test 06/24/16 10:22 Potassium Level 3.3 Lipase 595 Imaging Last Impressions Abdomen MRI 06/21/16 0000 Signed Impressions: Service Date/Time: Tuesday, June 21, 2016 12:01 - CONCLUSION: 1. Persistent complex cystic lesion in the pelvis containing multiple septations. This has decreased in size of the last several exams. 2. There is no free fluid. 3. Definitive surgical evaluation may be of benefit. Adi Burns MD FACR Cholangiopancreatography MRI 06/19/16 0000 Signed Impressions: Service Date/Time: Sunday, June 19, 2016 12:57 - CONCLUSION: 1. No evidence of any definite gallstones or biliary tract obstruction. 2. There appears to be edema and fluid surrounding the pancreas and extending to the right paracolic gutter suggestive of pancreatitis. Recommend correlation with patient's laboratory values. Yohan De Oliveira MD Abdomen/Pelvis CT 06/16/16 0000 Signed Impressions: Service Date/Time: Thursday, June 16, 2016 18:11 - CONCLUSION: 1. Large complex septated pelvic mass again noted which is decreased in size from the prior study. This remains most consistent with ovarian etiology. This could represent a large endometrioma given the patient's history. 2. The distal small bowel is abnormal with dilatation, enhancement of the sanchez and multiple air-fluid levels. This is nonspecific but most likely is infectious or inflammatory. The more proximal small bowel and colon are decompressed and this is unlikely to represent obstruction. 3. Fatty infiltration of the liver. Vicente Minor MD Physical Exam HEENT: Normocephalic; atraumatic; no jaundice. Throat is clear. NECK: Neck is supple, no JVD, no lymphadenopathy. CHEST: CTA CARDIAC: RRR ABDOMEN: Soft, nondistended, mild diffuse tenderness; no hepatosplenomegaly; bowel sounds are present in all four quadrants. EXTREMITIES: No clubbing, cyanosis, or edema. SKIN: Normal; no rash; no jaundice. PROGRAM DIRECTOR GROUP WORK: No focal deficits; alert and oriented times three. (Hailey Baez) Assessment and Plan Plan ASSESSMENT: - Abdominal pain with nausea, vomiting. Pt from [place], attends school here at [facility] [employer]. In January, she was found to have a large pelvic mass with ascites and small bowel obstruction. She underwent diagnostic laparoscopy, laparoscopic left oophorectomy and cystectomy, peritoneal and ovarian biopsy laparoscopic with frozen section, and abdominal washout on 01/23/[address] Ta. Pathology revealed fibrotic tissue with hemosiderin laden macrophages, ovarian tissue with fibrosis and focal hemosiderin deposition, one detached fragment of tissue suspicious for endometrial stroma, endometrioma, cystic structure containing degenerating blood with hemosiderin laden macrophages and fibrosis in the wall, adjacent fragment of endometriosis. She has continued to have n/v, inability to tolerate po. She was started on Lupron in April of 2016, but was having symptoms prior to this. She has had workup in [place], states they did HIDA to look at her gb and this was normal. She recently had EGD on 05/25/[address] Norma Simental in [place] and this was unremarkable other than a hiatal hernia. She was placed on a trial of protonix, but she felt that this made her symptoms worse and therefore she did not continue it. Abnormal wt. loss 55 lbs, with n/v about five minutes after trying to eat. + BM, last night. Denies constipation/bloating. Abdomen/Pelvis CT (06/16/16)---> 1. Large complex septated pelvic mass again noted which is decreased in size from the prior study. This remains most consistent with ovarian etiology. This could represent a large endometrioma given the patient's history. 2. The distal small bowel is abnormal with dilatation, enhancement of the sanchez and multiple air-fluid levels. This is nonspecific but most likely is infectious or inflammatory. The more proximal small bowel and colon are decompressed and this is unlikely to represent obstruction. 3. Fatty infiltration of the liver. RECORDS from [place]: EGD (05/25/16)---> mild gastritis in antrum and a small sliding hiatal hernia, otherwise normal upper endoscopy. Pathology with mild chronic gastritis, no h pylori. Abdomen MRI (06/21/16)----> 1. Persistent complex cystic lesion in the pelvis containing multiple septations. This has decreased in size of the last several exams. 2. There is no free fluid. 3. Definitive surgical evaluation may be of benefit. S/P Dr. oTlbert evaluation. Cipro/Flagyl. Zofran. DEMI. Still with persistent abdominal pain and not taking much- had some full liquids. - Pancreatitis, ? secondary to Lupron. Abdomen MRI (06/21/16)----> 1. Persistent complex cystic lesion in the pelvis containing multiple septations. This has decreased in size of the last several exams. 2. There is no free fluid. 3. Definitive surgical evaluation may be of benefit. MRCP (06/19/16)---> 1. No evidence of any definite gallstones or biliary tract obstruction. 2. There appears to be edema and fluid surrounding the pancreas and extending to the right paracolic gutter suggestive of pancreatitis. Recommend correlation with patient's laboratory values. Lipase trending down---> 676. She tried to take cheerios but states this was making her very nauseous. Still with abdominal pain and requiring IV pain meds. - Abnormal weight loss. 55 lb weight loss since January. - Endometriosis, s/p diagnostic laparoscopy, laparoscopic left oophorectomy and cystectomy, peritoneal and ovarian biopsy laparoscopic with frozen section, and abdominal washout on 01/23/[address] Ta. Pathology revealed fibrotic tissue with hemosiderin laden macrophages, ovarian tissue with fibrosis and focal hemosiderin deposition, one detached fragment of tissue suspicious for endometrial stroma, endometrioma, cystic structure containing degenerating blood with hemosiderin laden macrophages and fibrosis in the wall, adjacent fragment of endometriosis. Lupron PLAN: - Low fat diet as tolerated - Ensure - Cont. PPI - Cont. Reglan - Cont. Cipro/Flagyl - Cont. Zofran prn - Further recommendations to follow after results of above - Pt seen and examined by Dr. Lovell and myself and this note is written on his behalf (Hailey Baez) Physician Comments Patient seen and examined Agree with above Continue with current supportive care Monitor labs Possible discharge once patient is able to handle her intake advance her diet and her pain is controlled (Devonte Lovell MD) Hailey Baez Jun 24, 2016 12:31 Devonte Lovell MD Jun 24, 2016 19:20
[2016-06-24] MEDS: ONDANSETRON HCL 4 MG/2 ML VIAL IV PUSH PRN (12:41)
[2016-06-24 16:00] VITALS: BP 136/83; PULSE 100; RESP 16; TEMP 98.3; O2SAT 100
[2016-06-24] MEDS: ACETAMINOPHEN/HYDROcodone 325 MG/5 MG TAB PO PRN ×2 (16:18→20:36)
[2016-06-24] MEDS ORDERED: DOCUSATE SODIUM 50 MG/SENNA 8.6 MG TAB PO PRN (16:45)
[2016-06-24 20:00] VITALS: BP 116/84; PULSE 94; RESP 17; TEMP 97.3; O2SAT 98
[2016-06-25] VITALS: BP 130/78; PULSE 86; RESP 17; TEMP 97.7; O2SAT 97
[2016-06-25] MEDS: METOCLOPRAMIDE HCL 10 MG/2 ML VIAL IV SCH ×3 (01:10→16:58)
[2016-06-25] MEDS: metroNIDAZOLE 500 MG INJ 100 ML IV SCH ×4 (01:10→20:31)
[2016-06-25] MEDS: NS + KCL 20 MEQ INJ 1,000 ML IV SCH ×3 (01:15→15:17)
[2016-06-25] MEDS: ACETAMINOPHEN/HYDROcodone 325 MG/5 MG TAB PO PRN ×4 (02:28→20:25)
[2016-06-25 04:00] VITALS: BP 117/84; PULSE 96; RESP 17; TEMP 96.8; O2SAT 97
[2016-06-25] MEDS: PANTOPRAZOLE SODIUM 40 MG VIAL IV PUSH SCH ×2 (05:10→16:58)
[2016-06-25 08:00] VITALS: BP 135/79; PULSE 88; RESP 16; TEMP 97.6; O2SAT 97
[2016-06-25] MEDS: ONDANSETRON HCL 4 MG/2 ML VIAL IV PUSH PRN ×2 (08:38→20:25)
[2016-06-25] MEDS: CIPROFLOXACIN 400 MG PREMIX 200 ML IV SCH ×2 (10:16→20:31)
--- NOTE | 2016-06-25 11:09 | HHI.PR ---
Subjective Remarks says that the pain is somewhat better today. had slight nausea earlier. d/w the RN. Objective Vitals Vital Signs Date Time Temp Pulse Resp B/P Pulse Ox O2 Delivery O2 Flow Rate FiO2 06/25/16 08:00 97.6 88 16 135/79 97 06/25/16 04:00 96.8 96 17 117/84 97 06/25/16 03:51 19 06/25/16 00:00 97.7 86 17 130/78 97 06/24/16 22:00 20 06/24/16 20:00 97.3 94 17 116/84 98 06/24/16 16:00 98.3 100 16 136/83 100 06/24/16 12:00 97.6 85 16 142/85 100 I/O 06/24/16 06/24/16 06/24/16 06/25/16 06/25/16 06/25/16 07:00 15:00 23:00 07:00 15:00 23:00 Intake Total 1929 ml 1361 ml 1402 ml Output Total 1400 ml 800 ml 700 ml 1000 ml 1400 ml Balance 529 ml 561 ml -700 ml 402 ml -1400 ml Intake Oral 300 ml 240 ml 240 ml IV Total 1629 ml 1121 ml 1162 ml Output Urine Total 1400 ml 800 ml 700 ml 1000 ml 1400 ml # Bowel Movements 0 Result Diagram: 06/22/16 0537 06/24/16 1022 Imaging Last Impressions Abdomen MRI 06/21/16 0000 Signed Impressions: Service Date/Time: Tuesday, June 21, 2016 12:01 - CONCLUSION: 1. Persistent complex cystic lesion in the pelvis containing multiple septations. This has decreased in size of the last several exams. 2. There is no free fluid. 3. Definitive surgical evaluation may be of benefit. Adi Burns MD FACR Cholangiopancreatography MRI 06/19/16 0000 Signed Impressions: Service Date/Time: Sunday, June 19, 2016 12:57 - CONCLUSION: 1. No evidence of any definite gallstones or biliary tract obstruction. 2. There appears to be edema and fluid surrounding the pancreas and extending to the right paracolic gutter suggestive of pancreatitis. Recommend correlation with patient's laboratory values. Yohan De Oliveira MD Abdomen/Pelvis CT 06/16/16 0000 Signed Impressions: Service Date/Time: Thursday, June 16, 2016 18:11 - CONCLUSION: 1. Large complex septated pelvic mass again noted which is decreased in size from the prior study. This remains most consistent with ovarian etiology. This could represent a large endometrioma given the patient's history. 2. The distal small bowel is abnormal with dilatation, enhancement of the sanchez and multiple air-fluid levels. This is nonspecific but most likely is infectious or inflammatory. The more proximal small bowel and colon are decompressed and this is unlikely to represent obstruction. 3. Fatty infiltration of the liver. Vicente Minor MD Objective Remarks GENERAL: This is a well-nourished, well-developed patient, in no apparent distress. CARDIOVASCULAR: Regular rate and regular rhythm without murmurs, gallops, or rubs. RESPIRATORY: Clear to auscultation. Breath sounds equal bilaterally. No wheezes , rales, or rhonchi. GASTROINTESTINAL: Abdomen soft, minimal epigastric tenderness, nondistended. Normal, active bowel sounds MUSCULOSKELETAL: Extremities without clubbing, cyanosis, or edema. NEURO: Alert & Oriented x4 to person, place, time, situation. Moves all ext x4 Procedures none Medications and IVs Current Medications Ondansetron HCl 4 mg 4 mg ONCE ONCE IVP Last administered on 06/16/16 17:07; Start 06/16/16 at 16:45; Stop 06/16/16 at 16:46; Status DC Sodium Chloride (NS 1000 ml Inj) 1,000 ml @ 1,000 mls/hr Q1H IV Last administered on 06/16/16 17:07; Start 06/16/16 at 16:40; Stop 06/16/16 at 17:39 ; Status DC IV Flush (NS Flush) 2 ml UNSCH PRN IVF FLUSH AFTER USING IV ACCESS Last administered on 06/21/16 20:11; Start 06/16/16 at 16:45 Ketorolac Tromethamine (Toradol Inj) 30 mg ONCE ONCE IVP Last administered on 06/16/16 17:06; Start 06/16/16 at 16:45; Stop 06/16/16 at 16:46; Status DC Iohexol 100 ml 100 ml STK-MED ONCE IV Last administered on 06/16/16 18:16; Start 06/16/16 at 18:16; Stop 06/16/16 at 18:17; Status DC Ceftriaxone Sodium 1000 mg/ Sodium Chloride 100 ml @ 200 mls/hr ONCE ONCE IV Last administered on 06/16/16 18:52; Start 06/16/16 at 18:30; Stop 06/16/16 at 18:59; Status DC Potassium Chloride (KCl 20 Meq Premix Inj) 100 ml @ 50 mls/hr ONCE ONCE IV Last administered on 06/16/16 19:29; Start 06/16/16 at 18:30; Stop 06/16/16 at 20:29; Status DC Potassium Chloride 40 meq 40 meq ONCE ONCE PO Last administered on 06/16/16 18:52; Start 06/16/16 at 18:30; Stop 06/16/16 at 18:31; Status DC Magnesium Sulfate/ Dextrose 100 ml @ 100 mls/hr ONCE ONCE IV Last administered on 06/16/16 21:10; Start 06/16/16 at 18:30; Stop 06/16/16 at 19:29 ; Status DC Potassium Chloride/Sodium Chloride (NS + KCl 20 Meq Inj) 1,000 ml @ 125 mls/hr Q8H IV Last administered on 06/25/16 01:15; Start 06/16/16 at 21:00 Ondansetron HCl 4 mg 4 mg Q8H PRN IV PUSH NAUSEA Last administered on 06/25/16 08:38; Start 06/16/16 at 18:45 Metronidazole 100 ml @ 100 mls/hr ONCE ONCE IV Last administered on 21:10; Start 06/16/16 at 19:00; Stop 06/16/16 at 19:59; Status DC Metronidazole 100 ml @ 100 mls/hr Q6H IV Last administered on 06/25/16 08:07; Start 06/17/16 at 02:00 Ciprofloxacin/ Dextrose 200 ml @ 200 mls/hr Q12H IV Last administered on 10:16; Start 06/17/16 at 09:00 Potassium Chloride (KCl 20 Meq Premix Inj) 100 ml @ 50 mls/hr Q2H IV Last administered on 06/17/16 03:12; Start 06/16/16 at 21:30; Stop 06/17/16 at 01:29 ; Status DC Morphine Sulfate (Morphine Inj) 2 mg Q3H PRN IV PUSH BREAKTHROUGH PAIN Last administered on 06/24/16 12:43; Start 06/16/16 at 21:15 Pantoprazole Sodium (Protonix Inj) 40 mg Q12H IV PUSH Last administered on 05:10; Start 06/18/16 at 17:00 Metoclopramide HCl (Reglan Inj) 10 mg Q8H IM Last administered on 06/18/16 16: 35; Start 06/18/16 at 16:00; Stop 06/18/16 at 18:14; Status DC Metoclopramide HCl (Reglan Inj) 10 mg Q8H IV Last administered on 06/25/16 08: 38; Start 06/19/16 at 00:00 Gadodiamide (Omniscan Pf Inj) 18 ml STK-MED ONCE IV Last administered on 12:43; Start 06/21/16 at 12:43; Stop 06/21/16 at 12:44; Status DC Potassium Chloride (KCl) 30 meq ONCE ONCE PO Last administered on 06/22/16 08 :56; Start 06/22/16 at 08:30; Stop 06/22/16 at 08:31; Status DC Potassium Chloride (KCl) 30 meq ONCE ONCE PO Last administered on 06/22/16 12 :28; Start 06/22/16 at 12:00; Stop 06/22/16 at 12:01; Status DC Potassium Chloride (KCl) 30 meq ONCE ONCE PO Last administered on 06/22/16 18 :13; Start 06/22/16 at 16:00; Stop 06/22/16 at 16:01; Status DC Magnesium Hydroxide (Milk Of Magnesia Liq) 30 ml DAILY PRN PO CONSTIPATION Last administered on 06/23/16 12:37; Start 06/22/16 at 09:15 Potassium Chloride (KCl) 40 meq ONCE ONCE PO Last administered on 06/23/16 12: 30; Start 06/23/16 at 12:00; Stop 06/23/16 at 12:01; Status DC Acetaminophen/ Hydrocodone Bitart ([place] 5-325 Mg) 1 tab Q4H PRN PO PAIN 3-6 Last administered on 06/25/16 08:39; Start 06/24/16 at 12:15 Acetaminophen/ Hydrocodone Bitart ([place] 5-325 Mg) 2 tab Q4H PRN PO PAIN 7-10 Last administered on 06/24/16 20:36; Start 06/24/16 at 12:15 Senna/Docusate Sodium ([place]are[place]-Colace) 1 tab BID PRN PO CONSTIPATION Last administered on 06/24/16 17:04; Start 06/24/16 at 16:45 A/P Assessment and Plan A/P acute pancreatitis- improving slowly advanced the diet to low fat diet . continue pain control lipase trending down. consider stopping Lupron if ok with CALIBRATION LABORATORY TECHNICIAN continue PPI GI following Pelvic mass ( right ovarian mass per patient who is s/p left oophorectomy 02/05 ) - On Lupron from PCP- however this might need to be stopped due to pancreatitis - this will be deferred to CALIBRATION LABORATORY TECHNICIAN/ PCP. -CALIBRATION LABORATORY TECHNICIAN consult appreciated and no surgical intervention at this time; will continue with conservative treatment -f/u as outpatient. Hypokalemia -replaced- monitor the level. DVT prophylaxis - SCDs Discharge Planning dc home later today if can tolerate the diet. f/u; pcp,GI and CALIBRATION LABORATORY TECHNICIAN as outpatient. see med list. d/w the patient. d/w RN and GI. Aguila Beltran MD Jun 25, 2016 11:09
[2016-06-25] MEDS ORDERED: HYDR-3516 PO (11:10)
--- NOTE | 2016-06-25 11:11 | HHI.DS ---
Discharge Summary Admission Date Jun 16, 2016 at 18:40 Discharge Date: Jun 25, 2016 Admitting Diagnosis UTI, hypokalemia (1) Acute pancreatitis ICD Code: K85.90 Diagnosis: Principal (2) Abdominal pain ICD Code: R10.9 Diagnosis: Principal (3) Pelvic mass in female ICD Code: R19.00 Diagnosis: Secondary (4) GERD (gastroesophageal reflux disease) ICD Code: K21.9 Diagnosis: Secondary (5) Hiatal hernia ICD Code: K44.9 Diagnosis: Secondary Procedures none Brief History - From Admission Ms. Smith is a 25 year-old female with a history of recent small bowel obstruction, pelvic mass (02/05), ovarian mass s/p left oopherectomy, anxiety and GERD, who presented to the ER on 06/16/16 complaining of nausea and vomiting for 2 weeks and months of abdominal pain with hiatal hernia found on endoscopy in [place] 05/25/16. Hypokalemia discovered on initial labs at 2.9. Lipase was slightly elevated at 461. Lactic acid within normal parameters at 1.7. Urinalysis was abnormal with large leukocytes, ketones, blood, and bacteria, culture is pending (nitrite negative). Abdomen and pelvis CT scan showed a large complex septated pelvic mass that decreased in size from prior study. The patient is currently under treatment for this. Distal small bowel noted with dilatation, enhancement of the sanchez, and multiple air-fluid levels; most likely related to inflammation or infection. The more proximal small bowel and colon are decompressed though this is unlikely to represent obstruction. Fatty infiltration of the liver noted. Heart rate elevated at 138 upon presentation. No leukocytosis the patients afebrile thus far. Of note, the patient had laparoscopy with left oophorectomy and cystectomy, peritoneal and ovarian biopsies and abdominal washout on 01/23/2016 for pelvic mass with ascites and a small bowel obstruction by Dr. Chung. CEA 125 elevated at 453.3 on 01/22/16. Mrs. Smith is seen in her room. She reports that she has had severe epigastric pain and relates this to her hiatal hernia. Her pain is accompanied by severe fatigue, nausea and vomiting with inability to even keep water down yesterday. She reports a 30 pound weight loss since March. She states that she saw a in furniture fabricator in her home town in [place] (she attends college here) and he called her to follow up with her him but she was unable to return to see him. She had an appointment June [address] at [facility] but she states her symptoms have been so severe she is unable to wait until that appointment. She reports that she is aware of a right ovarian mass and her primary care physician placed her on Lupron for 6 months because she does not want to have her right ovary removed given her recent left oophorectomy and her young age. Upon review of her January admission, the right ovarian mass was not visualized on the CT scan at that time. She denies fever, diarrhea, constipation, black or red stools, hematuria, dysuria, liver or kidney problems, breathing problems, and history of blood clots such as DVT, PE, or CVA. She denies any history of seizure disorders or thyroid dysfunction. . CBC/BMP: 06/22/16 0537 06/24/16 1022 Significant Findings Laboratory Tests Test 06/23/16 06/24/16 06:07 10:22 Potassium Level 3.3 MEQ/L 3.3 MEQ/L (3.5-5.1) (3.5-5.1) Lipase 676 U/L 595 U/L (73-393) (73-393) Imaging Last Impressions Abdomen MRI 06/21/16 0000 Signed Impressions: Service Date/Time: Tuesday, June 21, 2016 12:01 - CONCLUSION: 1. Persistent complex cystic lesion in the pelvis containing multiple septations. This has decreased in size of the last several exams. 2. There is no free fluid. 3. Definitive surgical evaluation may be of benefit. Adi Burns MD FACR Cholangiopancreatography MRI 06/19/16 0000 Signed Impressions: Service Date/Time: Sunday, June 19, 2016 12:57 - CONCLUSION: 1. No evidence of any definite gallstones or biliary tract obstruction. 2. There appears to be edema and fluid surrounding the pancreas and extending to the right paracolic gutter suggestive of pancreatitis. Recommend correlation with patient's laboratory values. Yohan De Oliveira MD Abdomen/Pelvis CT 06/16/16 0000 Signed Impressions: Service Date/Time: Thursday, June 16, 2016 18:11 - CONCLUSION: 1. Large complex septated pelvic mass again noted which is decreased in size from the prior study. This remains most consistent with ovarian etiology. This could represent a large endometrioma given the patient's history. 2. The distal small bowel is abnormal with dilatation, enhancement of the sanchez and multiple air-fluid levels. This is nonspecific but most likely is infectious or inflammatory. The more proximal small bowel and colon are decompressed and this is unlikely to represent obstruction. 3. Fatty infiltration of the liver. Vicente Minor MD PE at Discharge GENERAL: This is a well-nourished, well-developed patient, in no apparent distress. CARDIOVASCULAR: Regular rate and regular rhythm without murmurs, gallops, or rubs. RESPIRATORY: Clear to auscultation. Breath sounds equal bilaterally. No wheezes , rales, or rhonchi. GASTROINTESTINAL: Abdomen soft, minimal epigastric tenderness, nondistended. Normal, active bowel sounds MUSCULOSKELETAL: Extremities without clubbing, cyanosis, or edema. NEURO: Alert & Oriented x4 to person, place, time, situation. Moves all ext x4 Hospital Course acute pancreatitis- improving slowly advanced the diet to low fat diet . continue pain control lipase trending down. consider stopping Lupron if ok with DRIVER STARTING GATE continue PPI GI following Pelvic mass ( right ovarian mass per patient who is s/p left oophorectomy 02/05 ) - On Lupron from PCP- however this might need to be stopped due to pancreatitis - this will be deferred to DRIVER STARTING GATE/ PCP. -DRIVER STARTING GATE consult appreciated and no surgical intervention at this time; will continue with conservative treatment -f/u as outpatient. Hypokalemia -replaced- monitor the level. DVT prophylaxis - SCDs Pt Condition on Discharge: Fair Discharge Disposition: Discharge Home Discharge Time: <= 30 minutes Discharge Instructions DIET: Follow Instructions for: Heart Healthy Diet, Low Fat Diet Activities you can perform: Regular-No Restrictions Follow up Referrals: Gastroenterology MACHINE FARMWORKER PCP Follow-up New Medications: Hydrocodone-Acetaminophen (Hydrocodone-Acetaminophen) 5-325 mg Tab 1 TAB PO Q6HR PRN pain #15 Ref 0 TAB Continued Medications: Pantoprazole (Protonix) 40 Mg Tab 40 MG PO DAILY Reflux #30 Ref 0 TAB Minouei,Mohammadreza MD Jun 25, 2016 11:11
[2016-06-25 12:00] VITALS: BP 125/88; PULSE 85; RESP 16; TEMP 97.1; O2SAT 96
--- NOTE | 2016-06-25 13:03 | HHI.GIFU ---
Subjective Remarks Resting in bed. Reports that she is tolerating dry cereal. States that her pain is controlled with oral pain meds. The nurse reports that she is not getting out of bed, not even to use bathroom. (Hailey Baez) Objective Vitals I&O Vital Signs Date Time Temp Pulse Resp B/P Pulse Ox O2 Delivery O2 Flow Rate FiO2 06/25/16 12:00 97.1 85 16 125/88 96 06/25/16 08:00 97.6 88 16 135/79 97 06/25/16 04:00 96.8 96 17 117/84 97 06/25/16 03:51 19 06/25/16 00:00 97.7 86 17 130/78 97 06/24/16 22:00 20 06/24/16 20:00 97.3 94 17 116/84 98 06/24/16 16:00 98.3 100 16 136/83 100 I/O 06/24/16 06/24/16 06/24/16 06/25/16 06/25/16 06/25/16 07:00 15:00 23:00 07:00 15:00 23:00 Intake Total 1929 ml 1361 ml 1402 ml Output Total 1400 ml 800 ml 700 ml 1000 ml 1402 ml Balance 529 ml 561 ml -700 ml 402 ml -1402 ml Intake Oral 300 ml 240 ml 240 ml IV Total 1629 ml 1121 ml 1162 ml Output Urine Total 1400 ml 800 ml 700 ml 1000 ml 1400 ml Emesis 2 ml # Bowel Movements 0 Laboratory Laboratory Tests Test 06/25/16 11:44 Potassium Level 3.2 Imaging Last Impressions Abdomen MRI 06/21/16 0000 Signed Impressions: Service Date/Time: Tuesday, June 21, 2016 12:01 - CONCLUSION: 1. Persistent complex cystic lesion in the pelvis containing multiple septations. This has decreased in size of the last several exams. 2. There is no free fluid. 3. Definitive surgical evaluation may be of benefit. Adi Burns MD FACR Cholangiopancreatography MRI 06/19/16 0000 Signed Impressions: Service Date/Time: Sunday, June 19, 2016 12:57 - CONCLUSION: 1. No evidence of any definite gallstones or biliary tract obstruction. 2. There appears to be edema and fluid surrounding the pancreas and extending to the right paracolic gutter suggestive of pancreatitis. Recommend correlation with patient's laboratory values. Yohan De Oliveira MD Abdomen/Pelvis CT 06/16/16 0000 Signed Impressions: Service Date/Time: Thursday, June 16, 2016 18:11 - CONCLUSION: 1. Large complex septated pelvic mass again noted which is decreased in size from the prior study. This remains most consistent with ovarian etiology. This could represent a large endometrioma given the patient's history. 2. The distal small bowel is abnormal with dilatation, enhancement of the sanchez and multiple air-fluid levels. This is nonspecific but most likely is infectious or inflammatory. The more proximal small bowel and colon are decompressed and this is unlikely to represent obstruction. 3. Fatty infiltration of the liver. Vicente Minor MD Physical Exam HEENT: Normocephalic; atraumatic; no jaundice. Throat is clear. NECK: Neck is supple, no JVD, no lymphadenopathy. CHEST: CTA CARDIAC: RRR ABDOMEN: Soft, nondistended, mild diffuse tenderness; no hepatosplenomegaly; bowel sounds are present in all four quadrants. EXTREMITIES: No clubbing, cyanosis, or edema. SKIN: Normal; no rash; no jaundice. BIOFUELS PRODUCTION MANAGER: No focal deficits; alert and oriented times three. (Hailey Baez [facility]) Assessment and Plan Plan ASSESSMENT: - Abdominal pain with nausea, vomiting. Pt from [place], attends school here at [facility] [employer] [facility]. In January, she was found to have a large pelvic mass with ascites and small bowel obstruction. She underwent diagnostic laparoscopy, laparoscopic left oophorectomy and cystectomy, peritoneal and ovarian biopsy laparoscopic with frozen section, and abdominal washout on 01/23/[address] Ta. Pathology revealed fibrotic tissue with hemosiderin laden macrophages, ovarian tissue with fibrosis and focal hemosiderin deposition, one detached fragment of tissue suspicious for endometrial stroma, endometrioma, cystic structure containing degenerating blood with hemosiderin laden macrophages and fibrosis in the wall, adjacent fragment of endometriosis. She has continued to have n/v, inability to tolerate po. She was started on Lupron in April of 2016, but was having symptoms prior to this. She has had workup in [place], states they did HIDA to look at her gb and this was normal. She recently had EGD on 05/25/[address] Norma Simental in [place] and this was unremarkable other than a hiatal hernia. She was placed on a trial of protonix, but she felt that this made her symptoms worse and therefore she did not continue it. Abnormal wt. loss 55 lbs, with n/v about five minutes after trying to eat. + BM, last night. Denies constipation/bloating. Abdomen/Pelvis CT (06/16/16)---> 1. Large complex septated pelvic mass again noted which is decreased in size from the prior study. This remains most consistent with ovarian etiology. This could represent a large endometrioma given the patient's history. 2. The distal small bowel is abnormal with dilatation, enhancement of the sanchez and multiple air-fluid levels. This is nonspecific but most likely is infectious or inflammatory. The more proximal small bowel and colon are decompressed and this is unlikely to represent obstruction. 3. Fatty infiltration of the liver. RECORDS from [place]: EGD (05/25/16)---> mild gastritis in antrum and a small sliding hiatal hernia, otherwise normal upper endoscopy. Pathology with mild chronic gastritis, no h pylori. Abdomen MRI (06/21/16)----> 1. Persistent complex cystic lesion in the pelvis containing multiple septations. This has decreased in size of the last several exams. 2. There is no free fluid. 3. Definitive surgical evaluation may be of benefit. S/P Dr. Tolbert evaluation. Cipro/Flagyl. Zofran. DEMI. Tolerating oral pain meds. Taking some po- still not much appetite. - Pancreatitis, ? secondary to Lupron. Abdomen MRI (06/21/16)----> 1. Persistent complex cystic lesion in the pelvis containing multiple septations. This has decreased in size of the last several exams. 2. There is no free fluid. 3. Definitive surgical evaluation may be of benefit. MRCP (06/19/16)---> 1. No evidence of any definite gallstones or biliary tract obstruction. 2. There appears to be edema and fluid surrounding the pancreas and extending to the right paracolic gutter suggestive of pancreatitis. Recommend correlation with patient's laboratory values. Lipase trending down---> 676. She tried to take cheerios but states this was making her very nauseous. Still with abdominal pain and requiring IV pain meds. - Abnormal weight loss. 55 lb weight loss since January. - Endometriosis, s/p diagnostic laparoscopy, laparoscopic left oophorectomy and cystectomy, peritoneal and ovarian biopsy laparoscopic with frozen section, and abdominal washout on 01/23/[address] Ta. Pathology revealed fibrotic tissue with hemosiderin laden macrophages, ovarian tissue with fibrosis and focal hemosiderin deposition, one detached fragment of tissue suspicious for endometrial stroma, endometrioma, cystic structure containing degenerating blood with hemosiderin laden macrophages and fibrosis in the wall, adjacent fragment of endometriosis. Lupron PLAN: - Low fat diet as tolerated - Ensure - Cont. PPI - Cont. Reglan - Cont. Cipro/Flagyl - Cont. Zofran prn - Encourage mobility - Further recommendations to follow after results of above - Pt seen and examined by Dr. Lovell and myself and this note is written on his behalf (Haliey Baez) Physician Comments Patient seen and examined Agree with above Continue with current supportive care Monitor labs (Devonte Lovell MD) Hailey Baez Jun 25, 2016 13:03 Devonte Lovell MD Jun 25, 2016 16:58
[2016-06-25] MEDS ORDERED: POTASSIUM CHLORIDE 20 MEQ CONTROLLED RELEASE TAB PO ONE ×2 (13:45→16:00)
[2016-06-25 16:00] VITALS: BP 142/79; PULSE 84; RESP 16; TEMP 97.2; O2SAT 97
[2016-06-25 20:00] VITALS: BP 120/82; PULSE 93; RESP 18; TEMP 97.2; O2SAT 98
[2016-06-26] VITALS: BP 125/73; PULSE 95; RESP 18; TEMP 97.1; O2SAT 98
[2016-06-26] MEDS: METOCLOPRAMIDE HCL 10 MG/2 ML VIAL IV SCH ×4 (00:43→23:37)
[2016-06-26] MEDS: metroNIDAZOLE 500 MG INJ 100 ML IV SCH ×4 (00:43→20:17)
[2016-06-26] MEDS: ACETAMINOPHEN/HYDROcodone 325 MG/5 MG TAB PO PRN ×4 (03:38→20:14)
[2016-06-26 04:00] VITALS: BP 111/79; PULSE 106; RESP 19; TEMP 96.1; O2SAT 98
[2016-06-26] MEDS: NS + KCL 20 MEQ INJ 1,000 ML IV SCH ×4 (05:00→21:00)
[2016-06-26] MEDS: PANTOPRAZOLE SODIUM 40 MG VIAL IV PUSH SCH ×2 (06:52→16:46)
[2016-06-26] MEDS: ONDANSETRON HCL 4 MG/2 ML VIAL IV PUSH PRN ×2 (06:52→20:14)
[2016-06-26 08:00] VITALS: BP 136/83; PULSE 78; RESP 18; TEMP 97.2; O2SAT 100
--- NOTE | 2016-06-26 08:32 | HHI.PR ---
Subjective Remarks in no acute distress. no abdominal pain but still vomiting. she says that she threw up right after she had her supper last night. Objective Vitals Vital Signs Date Time Temp Pulse Resp B/P Pulse Ox O2 Delivery O2 Flow Rate FiO2 06/26/16 05:00 19 06/26/16 04:00 96.1 106 19 111/79 98 06/26/16 00:00 97.1 95 18 125/73 98 06/25/16 20:00 97.2 93 18 120/82 98 06/25/16 16:00 97.2 84 16 142/79 97 06/25/16 12:00 97.1 85 16 125/88 96 I/O 06/25/16 06/25/16 06/25/16 06/26/16 06/26/16 06/26/16 07:00 15:00 23:00 07:00 15:00 23:00 Intake Total 1402 ml 895 ml 2089 ml 942 ml Output Total 1000 ml 1402 ml 900 ml Balance 402 ml -507 ml 1189 ml 942 ml Intake Oral 240 ml 480 ml 240 ml IV Total 1162 ml 895 ml 1609 ml 702 ml Output Urine Total 1000 ml 1400 ml 900 ml Emesis 2 ml # Bowel Movements 0 Result Diagram: 06/22/16 0537 06/25/16 1144 Imaging Last Impressions Abdomen MRI 06/21/16 0000 Signed Impressions: Service Date/Time: Tuesday, June 21, 2016 12:01 - CONCLUSION: 1. Persistent complex cystic lesion in the pelvis containing multiple septations. This has decreased in size of the last several exams. 2. There is no free fluid. 3. Definitive surgical evaluation may be of benefit. Adi Burns MD FACR Cholangiopancreatography MRI 06/19/16 0000 Signed Impressions: Service Date/Time: Sunday, June 19, 2016 12:57 - CONCLUSION: 1. No evidence of any definite gallstones or biliary tract obstruction. 2. There appears to be edema and fluid surrounding the pancreas and extending to the right paracolic gutter suggestive of pancreatitis. Recommend correlation with patient's laboratory values. Yohan De Oliveira MD Abdomen/Pelvis CT 06/16/16 0000 Signed Impressions: Service Date/Time: Thursday, June 16, 2016 18:11 - CONCLUSION: 1. Large complex septated pelvic mass again noted which is decreased in size from the prior study. This remains most consistent with ovarian etiology. This could represent a large endometrioma given the patient's history. 2. The distal small bowel is abnormal with dilatation, enhancement of the sanchez and multiple air-fluid levels. This is nonspecific but most likely is infectious or inflammatory. The more proximal small bowel and colon are decompressed and this is unlikely to represent obstruction. 3. Fatty infiltration of the liver. Vicente Minor MD Objective Remarks GENERAL: This is a well-nourished, well-developed patient, in no apparent distress. CARDIOVASCULAR: Regular rate and regular rhythm without murmurs, gallops, or rubs. RESPIRATORY: Clear to auscultation. Breath sounds equal bilaterally. No wheezes , rales, or rhonchi. GASTROINTESTINAL: Abdomen soft, minimal epigastric tenderness, nondistended. Normal, active bowel sounds MUSCULOSKELETAL: Extremities without clubbing, cyanosis, or edema. NEURO: Alert & Oriented x4 to person, place, time, situation. Moves all ext x4 Procedures none Medications and IVs Current Medications Ondansetron HCl 4 mg 4 mg ONCE ONCE IVP Last administered on 06/16/16 17:07; Start 06/16/16 at 16:45; Stop 06/16/16 at 16:46; Status DC Sodium Chloride (NS 1000 ml Inj) 1,000 ml @ 1,000 mls/hr Q1H IV Last administered on 06/16/16 17:07; Start 06/16/16 at 16:40; Stop 06/16/16 at 17:39 ; Status DC IV Flush (NS Flush) 2 ml UNSCH PRN IVF FLUSH AFTER USING IV ACCESS Last administered on 06/21/16 20:11; Start 06/16/16 at 16:45 Ketorolac Tromethamine (Toradol Inj) 30 mg ONCE ONCE IVP Last administered on 06/16/16 17:06; Start 06/16/16 at 16:45; Stop 06/16/16 at 16:46; Status DC Iohexol 100 ml 100 ml STK-MED ONCE IV Last administered on 06/16/16 18:16; Start 06/16/16 at 18:16; Stop 06/16/16 at 18:17; Status DC Ceftriaxone Sodium 1000 mg/ Sodium Chloride 100 ml @ 200 mls/hr ONCE ONCE IV Last administered on 06/16/16 18:52; Start 06/16/16 at 18:30; Stop 06/16/16 at 18:59; Status DC Potassium Chloride (KCl 20 Meq Premix Inj) 100 ml @ 50 mls/hr ONCE ONCE IV Last administered on 06/16/16 19:29; Start 06/16/16 at 18:30; Stop 06/16/16 at 20:29; Status DC Potassium Chloride 40 meq 40 meq ONCE ONCE PO Last administered on 06/16/16 18:52; Start 06/16/16 at 18:30; Stop 06/16/16 at 18:31; Status DC Magnesium Sulfate/ Dextrose 100 ml @ 100 mls/hr ONCE ONCE IV Last administered on 06/16/16 21:10; Start 06/16/16 at 18:30; Stop 06/16/16 at 19:29 ; Status DC Potassium Chloride/Sodium Chloride (NS + KCl 20 Meq Inj) 1,000 ml @ 125 mls/hr Q8H IV Last administered on 06/26/16 05:00; Start 06/16/16 at 21:00 Ondansetron HCl 4 mg 4 mg Q8H PRN IV PUSH NAUSEA Last administered on 06/26/16 06:52; Start 06/16/16 at 18:45 Metronidazole 100 ml @ 100 mls/hr ONCE ONCE IV Last administered on 21:10; Start 06/16/16 at 19:00; Stop 06/16/16 at 19:59; Status DC Metronidazole 100 ml @ 100 mls/hr Q6H IV Last administered on 06/26/16 00:43; Start 06/17/16 at 02:00 Ciprofloxacin/ Dextrose 200 ml @ 200 mls/hr Q12H IV Last administered on 20:31; Start 06/17/16 at 09:00 Potassium Chloride (KCl 20 Meq Premix Inj) 100 ml @ 50 mls/hr Q2H IV Last administered on 06/17/16 03:12; Start 06/16/16 at 21:30; Stop 06/17/16 at 01:29 ; Status DC Morphine Sulfate (Morphine Inj) 2 mg Q3H PRN IV PUSH BREAKTHROUGH PAIN Last administered on 06/24/16 12:43; Start 06/16/16 at 21:15 Pantoprazole Sodium (Protonix Inj) 40 mg Q12H IV PUSH Last administered on 06:52; Start 06/18/16 at 17:00 Metoclopramide HCl (Reglan Inj) 10 mg Q8H IM Last administered on 06/18/16 16: 35; Start 06/18/16 at 16:00; Stop 06/18/16 at 18:14; Status DC Metoclopramide HCl (Reglan Inj) 10 mg Q8H IV Last administered on 06/26/16 00: 43; Start 06/19/16 at 00:00 Gadodiamide (Omniscan Pf Inj) 18 ml STK-MED ONCE IV Last administered on 12:43; Start 06/21/16 at 12:43; Stop 06/21/16 at 12:44; Status DC Potassium Chloride (KCl) 30 meq ONCE ONCE PO Last administered on 06/22/16 08 :56; Start 06/22/16 at 08:30; Stop 06/22/16 at 08:31; Status DC Potassium Chloride (KCl) 30 meq ONCE ONCE PO Last administered on 06/22/16 12 :28; Start 06/22/16 at 12:00; Stop 06/22/16 at 12:01; Status DC Potassium Chloride (KCl) 30 meq ONCE ONCE PO Last administered on 06/22/16 18 :13; Start 06/22/16 at 16:00; Stop 06/22/16 at 16:01; Status DC Magnesium Hydroxide (Milk Of Magnesia Liq) 30 ml DAILY PRN PO CONSTIPATION Last administered on 06/23/16 12:37; Start 06/22/16 at 09:15 Potassium Chloride (KCl) 40 meq ONCE ONCE PO Last administered on 06/23/16 12: 30; Start 06/23/16 at 12:00; Stop 06/23/16 at 12:01; Status DC Acetaminophen/ Hydrocodone Bitart ([place] 5-325 Mg) 1 tab Q4H PRN PO PAIN 3-6 Last administered on 06/25/16 08:39; Start 06/24/16 at 12:15 Acetaminophen/ Hydrocodone Bitart ([place] 5-325 Mg) 2 tab Q4H PRN PO PAIN 7-10 Last administered on 06/26/16 03:38; Start 06/24/16 at 12:15 Senna/Docusate Sodium ([place]-Colace) 1 tab BID PRN PO CONSTIPATION Last administered on 06/24/16 17:04; Start 06/24/16 at 16:45 Potassium Chloride (KCl) 40 meq ONCE ONCE PO Last administered on 06/25/16 14: 27; Start 06/25/16 at 13:45; Stop 06/25/16 at 13:46; Status DC Potassium Chloride (KCl) 20 meq ONCE ONCE PO Last administered on 06/25/16 16: 58; Start 06/25/16 at 16:00; Stop 06/25/16 at 16:01; Status DC A/P Assessment and Plan A/P acute pancreatitis- abdominal pain has improved but still with recurrent nausea and vomiting continue pain control lipase trending down. consider stopping Lupron if ok with PELOTA MAKER continue PPI GI following- awaiting recommendations. Pelvic mass ( right ovarian mass per patient who is s/p left oophorectomy 02/05 ) - On Lupron from PCP- however this might need to be stopped due to pancreatitis - this will be deferred to PELOTA MAKER/ PCP. -PELOTA MAKER consult appreciated and no surgical intervention at this time; will continue with conservative treatment -f/u as outpatient. Hypokalemia -replaced- monitor the level. DVT prophylaxis - SCDs Discharge Planning still with recurrent nausea and vomiting- awaiting GI recommendations. Aguila Beltran MD Jun 26, 2016 08:32
[2016-06-26] MEDS: CIPROFLOXACIN 400 MG PREMIX 200 ML IV SCH ×2 (09:50→21:23)
[2016-06-26 13:28] VITALS: BP 137/96; PULSE 84; RESP 10; TEMP 97.6; O2SAT 100
[2016-06-26 16:00] VITALS: BP 138/96; PULSE 90; RESP 20; TEMP 97.7; O2SAT 100
--- NOTE | 2016-06-26 16:19 | HHI.GIFU ---
Subjective Remarks Patient is resting in bed, still not able to tolerated PO intake, continue to have nausea/vomiting (Ellen Lindquist IP/MOSAIC TECHNICIAN) Objective Vitals I&O Vital Signs Date Time Temp Pulse Resp B/P Pulse Ox O2 Delivery O2 Flow Rate FiO2 06/26/16 13:28 97.6 84 10 137/96 100 06/26/16 08:00 97.2 78 18 136/83 100 06/26/16 05:00 19 06/26/16 04:00 96.1 106 19 111/79 98 06/26/16 00:00 97.1 95 18 125/73 98 06/25/16 20:00 97.2 93 18 120/82 98 I/O 06/25/16 06/25/16 06/25/16 06/26/16 06/26/16 06/26/16 07:00 15:00 23:00 07:00 15:00 23:00 Intake Total 1402 ml 895 ml 2089 ml 942 ml 2292 ml Output Total 1000 ml 1402 ml 900 ml 6300 ml Balance 402 ml -507 ml 1189 ml 942 ml -4008 ml Intake Oral 240 ml 480 ml 240 ml 1320 ml IV Total 1162 ml 895 ml 1609 ml 702 ml 972 ml Output Urine Total 1000 ml 1400 ml 900 ml 6300 ml Emesis 2 ml # Bowel Movements 0 Laboratory Laboratory Tests Test 06/26/16 09:30 Potassium Level 3.5 Imaging Last Impressions Abdomen MRI 06/21/16 0000 Signed Impressions: Service Date/Time: Tuesday, June 21, 2016 12:01 - CONCLUSION: 1. Persistent complex cystic lesion in the pelvis containing multiple septations. This has decreased in size of the last several exams. 2. There is no free fluid. 3. Definitive surgical evaluation may be of benefit. Adi Burns MD FACR Cholangiopancreatography MRI 06/19/16 0000 Signed Impressions: Service Date/Time: Sunday, June 19, 2016 12:57 - CONCLUSION: 1. No evidence of any definite gallstones or biliary tract obstruction. 2. There appears to be edema and fluid surrounding the pancreas and extending to the right paracolic gutter suggestive of pancreatitis. Recommend correlation with patient's laboratory values. Yohan De Oliveira MD Abdomen/Pelvis CT 06/16/16 0000 Signed Impressions: Service Date/Time: Thursday, June 16, 2016 18:11 - CONCLUSION: 1. Large complex septated pelvic mass again noted which is decreased in size from the prior study. This remains most consistent with ovarian etiology. This could represent a large endometrioma given the patient's history. 2. The distal small bowel is abnormal with dilatation, enhancement of the sanchez and multiple air-fluid levels. This is nonspecific but most likely is infectious or inflammatory. The more proximal small bowel and colon are decompressed and this is unlikely to represent obstruction. 3. Fatty infiltration of the liver. Vicente Minor MD Physical Exam HEENT: Normocephalic; atraumatic; no jaundice. Throat is clear. NECK: Neck is supple, no JVD, no lymphadenopathy. CHEST: CTA CARDIAC: RRR ABDOMEN: Soft, nondistended, mild diffuse tenderness; no hepatosplenomegaly; bowel sounds are present in all four quadrants. EXTREMITIES: No clubbing, cyanosis, or edema. SKIN: Normal; no rash; no jaundice. ASSEMBLY LINE INSPECTOR: No focal deficits; alert and oriented times three. (Ellen Lindquist) Assessment and Plan Plan ASSESSMENT: - Abdominal pain with nausea, vomiting. Pt from [place], attends school here at [facility]. In January, she was found to have a large pelvic mass with ascites and small bowel obstruction. She underwent diagnostic laparoscopy, laparoscopic left oophorectomy and cystectomy, peritoneal and ovarian biopsy laparoscopic with frozen section, and abdominal washout on 01/23/[address] Ta. Pathology revealed fibrotic tissue with hemosiderin laden macrophages, ovarian tissue with fibrosis and focal hemosiderin deposition, one detached fragment of tissue suspicious for endometrial stroma, endometrioma, cystic structure containing degenerating blood with hemosiderin laden macrophages and fibrosis in the wall, adjacent fragment of endometriosis. She has continued to have n/v, inability to tolerate po. She was started on Lupron in April of 2016, but was having symptoms prior to this. She has had workup in [place], states they did HIDA to look at her gb and this was normal. She recently had EGD on 05/25/[address] Norma Simental in [place] and this was unremarkable other than a hiatal hernia. She was placed on a trial of protonix, but she felt that this made her symptoms worse and therefore she did not continue it. Abnormal wt. loss 55 lbs, with n/v about five minutes after trying to eat. + BM, last night. Denies constipation/bloating. Abdomen/Pelvis CT (06/16/16)---> 1. Large complex septated pelvic mass again noted which is decreased in size from the prior study. This remains most consistent with ovarian etiology. This could represent a large endometrioma given the patient's history. 2. The distal small bowel is abnormal with dilatation, enhancement of the sanchez and multiple air-fluid levels. This is nonspecific but most likely is infectious or inflammatory. The more proximal small bowel and colon are decompressed and this is unlikely to represent obstruction. 3. Fatty infiltration of the liver. RECORDS from [place]: EGD (05/25/16)---> mild gastritis in antrum and a small sliding hiatal hernia, otherwise normal upper endoscopy. Pathology with mild chronic gastritis, no h pylori. Abdomen MRI (06/21/16)----> 1. Persistent complex cystic lesion in the pelvis containing multiple septations. This has decreased in size of the last several exams. 2. There is no free fluid. 3. Definitive surgical evaluation may be of benefit. S/P Dr. Tolbert evaluation. Cipro/Flagyl. Zofran. DEMI. Tolerating oral pain meds. Taking some po- still not much appetite. - Pancreatitis, ? secondary to Lupron. Abdomen MRI (06/21/16)----> 1. Persistent complex cystic lesion in the pelvis containing multiple septations. This has decreased in size of the last several exams. 2. There is no free fluid. 3. Definitive surgical evaluation may be of benefit. MRCP (06/19/16)---> 1. No evidence of any definite gallstones or biliary tract obstruction. 2. There appears to be edema and fluid surrounding the pancreas and extending to the right paracolic gutter suggestive of pancreatitis. Recommend correlation with patient's laboratory values. Lipase trending down---> 676. She tried to take cheerios but states this was making her very nauseous. Still with abdominal pain and requiring IV pain meds. - Abnormal weight loss. 55 lb weight loss since January. - Endometriosis, s/p diagnostic laparoscopy, laparoscopic left oophorectomy and cystectomy, peritoneal and ovarian biopsy laparoscopic with frozen section, and abdominal washout on 01/23/[address] Ta. Pathology revealed fibrotic tissue with hemosiderin laden macrophages, ovarian tissue with fibrosis and focal hemosiderin deposition, one detached fragment of tissue suspicious for endometrial stroma, endometrioma, cystic structure containing degenerating blood with hemosiderin laden macrophages and fibrosis in the wall, adjacent fragment of endometriosis. Lupron 06/26/16- patient not able to tolerate PO, she is on Reglan, Zofran without relief Case discussed with dr. Beltran. lipase improving, not clear etiology for n/v had extensive work up, will order GE, SBFT PLAN: - Low fat diet as tolerated - Await GE, this was ordered by attending - Will order upper GI with SBFT to r/o gastric outlet obstruction, small bowel obstruction, Ct did show abnormal small bowel dilatation - Cont. PPI - Cont. Reglan - Cont. Cipro/Flagyl - Cont. Zofran prn - Encourage mobility - Further recommendations to follow after results of above - Pt seen and examined by Dr. Lovell and myself and this note is written on his behalf (Ellen Lindquist) Physician Comments Patient seen and examined Agree with above Continue with current supportive care Monitor labs Await small bowel follow-through if negative consider repeat CT of the abdomen to assess for possible pseudocyst formation as a potential cause for continued nausea vomiting (Devonte Lovell MD) Ellen Lindquist Jun 26, 2016 16:19 Devonte Lovell MD Jun 26, 2016 18:11
[2016-06-26 20:00] VITALS: BP 112/81; PULSE 98; RESP 18; TEMP 96; O2SAT 99
[2016-06-27] VITALS: BP 131/88; PULSE 99; RESP 18; TEMP 98.2; O2SAT 99
[2016-06-27] MEDS: metroNIDAZOLE 500 MG INJ 100 ML IV SCH ×4 (01:50→20:21)
[2016-06-27 04:00] VITALS: BP 116/81; PULSE 98; RESP 18; TEMP 96.2; O2SAT 98
[2016-06-27] MEDS: PANTOPRAZOLE SODIUM 40 MG VIAL IV PUSH SCH ×2 (04:40→16:45)
[2016-06-27] MEDS: ONDANSETRON HCL 4 MG/2 ML VIAL IV PUSH PRN ×2 (04:40→13:13)
[2016-06-27] MEDS: ACETAMINOPHEN/HYDROcodone 325 MG/5 MG TAB PO PRN ×4 (04:40→21:56)
[2016-06-27 08:00] VITALS: BP 115/82; PULSE 86; RESP 20; TEMP 97.3; O2SAT 99
[2016-06-27 08:16] LABS: HEMATOCRIT 30.4 % (35.0-46.0); MEAN CELL VOLUME 81.8 FL (80.0-100.0); MEAN CORPUSCULAR HEMOGLOBIN 26.4 PG (27.0-34.0); MEAN CORPUSCULAR HGB CONC 32.3 % (32.0-36.0); PLATELET COUNT 379 TH/MM3 (150-450); RED BLOOD COUNT 3.72 MIL/MM3 (4.00-5.30); RED CELL DISTRIBUTION WIDTH 20.9 % (11.6-17.2); WHITE BLOOD COUNT 3.6 TH/MM3 (4.0-11.0)
[2016-06-27] MEDS: METOCLOPRAMIDE HCL 10 MG/2 ML VIAL IV SCH ×2 (08:16→16:45)
[2016-06-27] MEDS: NS + KCL 20 MEQ INJ 1,000 ML IV SCH ×3 (08:16→21:00)
--- NOTE | 2016-06-27 08:23 | HHI.PR ---
Subjective Remarks in no distress. has minimal abdominal pain. has mild nausea. Objective Vitals Vital Signs Date Time Temp Pulse Resp B/P Pulse Ox O2 Delivery O2 Flow Rate FiO2 06/27/16 08:00 97.3 86 20 115/82 99 06/27/16 06:30 19 06/27/16 04:00 96.2 98 18 116/81 98 06/27/16 00:00 98.2 99 18 131/88 99 06/26/16 20:00 96.0 98 18 112/81 99 06/26/16 16:00 97.7 90 20 138/96 100 06/26/16 13:28 97.6 84 10 137/96 100 I/O 06/26/16 06/26/16 06/26/16 06/27/16 06/27/16 06/27/16 07:00 15:00 23:00 07:00 15:00 23:00 Intake Total 942 ml 2292 ml 600 ml 1893 ml 240 ml Output Total 6300 ml 250 ml 3000 ml Balance 942 ml -4008 ml 350 ml 1893 ml -2760 ml Intake Oral 240 ml 1320 ml 600 ml 120 ml 240 ml IV Total 702 ml 972 ml 1773 ml Output Urine Total 6300 ml 250 ml 3000 ml # Voids 1 2 # Bowel Movements 0 Result Diagram: 06/26/16 0930 Imaging Last Impressions Abdomen MRI 06/21/16 0000 Signed Impressions: Service Date/Time: Tuesday, June 21, 2016 12:01 - CONCLUSION: 1. Persistent complex cystic lesion in the pelvis containing multiple septations. This has decreased in size of the last several exams. 2. There is no free fluid. 3. Definitive surgical evaluation may be of benefit. Adi Burns MD FACR Cholangiopancreatography MRI 06/19/16 0000 Signed Impressions: Service Date/Time: Sunday, June 19, 2016 12:57 - CONCLUSION: 1. No evidence of any definite gallstones or biliary tract obstruction. 2. There appears to be edema and fluid surrounding the pancreas and extending to the right paracolic gutter suggestive of pancreatitis. Recommend correlation with patient's laboratory values. Yohan De Oliveira MD Abdomen/Pelvis CT 06/16/16 0000 Signed Impressions: Service Date/Time: Thursday, June 16, 2016 18:11 - CONCLUSION: 1. Large complex septated pelvic mass again noted which is decreased in size from the prior study. This remains most consistent with ovarian etiology. This could represent a large endometrioma given the patient's history. 2. The distal small bowel is abnormal with dilatation, enhancement of the sanchez and multiple air-fluid levels. This is nonspecific but most likely is infectious or inflammatory. The more proximal small bowel and colon are decompressed and this is unlikely to represent obstruction. 3. Fatty infiltration of the liver. Vicente Minor MD Objective Remarks GENERAL: This is a well-nourished, well-developed patient, in no apparent distress. CARDIOVASCULAR: Regular rate and regular rhythm without murmurs, gallops, or rubs. RESPIRATORY: Clear to auscultation. Breath sounds equal bilaterally. No wheezes , rales, or rhonchi. GASTROINTESTINAL: Abdomen soft, minimal epigastric tenderness, nondistended. Normal, active bowel sounds MUSCULOSKELETAL: Extremities without clubbing, cyanosis, or edema. NEURO: Alert & Oriented x4 to person, place, time, situation. Moves all ext x4 Procedures none Medications and IVs Current Medications Ondansetron HCl 4 mg 4 mg ONCE ONCE IVP Last administered on 06/16/16 17:07; Start 06/16/16 at 16:45; Stop 06/16/16 at 16:46; Status DC Sodium Chloride (NS 1000 ml Inj) 1,000 ml @ 1,000 mls/hr Q1H IV Last administered on 06/16/16 17:07; Start 06/16/16 at 16:40; Stop 06/16/16 at 17:39 ; Status DC IV Flush (NS Flush) 2 ml UNSCH PRN IVF FLUSH AFTER USING IV ACCESS Last administered on 06/21/16 20:11; Start 06/16/16 at 16:45 Ketorolac Tromethamine (Toradol Inj) 30 mg ONCE ONCE IVP Last administered on 06/16/16 17:06; Start 06/16/16 at 16:45; Stop 06/16/16 at 16:46; Status DC Iohexol 100 ml 100 ml STK-MED ONCE IV Last administered on 06/16/16 18:16; Start 06/16/16 at 18:16; Stop 06/16/16 at 18:17; Status DC Ceftriaxone Sodium 1000 mg/ Sodium Chloride 100 ml @ 200 mls/hr ONCE ONCE IV Last administered on 06/16/16 18:52; Start 06/16/16 at 18:30; Stop 06/16/16 at 18:59; Status DC Potassium Chloride (KCl 20 Meq Premix Inj) 100 ml @ 50 mls/hr ONCE ONCE IV Last administered on 06/16/16 19:29; Start 06/16/16 at 18:30; Stop 06/16/16 at 20:29; Status DC Potassium Chloride 40 meq 40 meq ONCE ONCE PO Last administered on 06/16/16 18:52; Start 06/16/16 at 18:30; Stop 06/16/16 at 18:31; Status DC Magnesium Sulfate/ Dextrose 100 ml @ 100 mls/hr ONCE ONCE IV Last administered on 06/16/16 21:10; Start 06/16/16 at 18:30; Stop 06/16/16 at 19:29 ; Status DC Potassium Chloride/Sodium Chloride (NS + KCl 20 Meq Inj) 1,000 ml @ 125 mls/hr Q8H IV Last administered on 06/27/16 08:16; Start 06/16/16 at 21:00 Ondansetron HCl 4 mg 4 mg Q8H PRN IV PUSH NAUSEA Last administered on 06/27/16 04:40; Start 06/16/16 at 18:45 Metronidazole 100 ml @ 100 mls/hr ONCE ONCE IV Last administered on 21:10; Start 06/16/16 at 19:00; Stop 06/16/16 at 19:59; Status DC Metronidazole 100 ml @ 100 mls/hr Q6H IV Last administered on 06/27/16 08:16; Start 06/17/16 at 02:00 Ciprofloxacin/ Dextrose 200 ml @ 200 mls/hr Q12H IV Last administered on 21:23; Start 06/17/16 at 09:00 Potassium Chloride (KCl 20 Meq Premix Inj) 100 ml @ 50 mls/hr Q2H IV Last administered on 06/17/16 03:12; Start 06/16/16 at 21:30; Stop 06/17/16 at 01:29 ; Status DC Morphine Sulfate (Morphine Inj) 2 mg Q3H PRN IV PUSH BREAKTHROUGH PAIN Last administered on 06/24/16 12:43; Start 06/16/16 at 21:15 Pantoprazole Sodium (Protonix Inj) 40 mg Q12H IV PUSH Last administered on 04:40; Start 06/18/16 at 17:00 Metoclopramide HCl (Reglan Inj) 10 mg Q8H IM Last administered on 06/18/16 16: 35; Start 06/18/16 at 16:00; Stop 06/18/16 at 18:14; Status DC Metoclopramide HCl (Reglan Inj) 10 mg Q8H IV Last administered on 06/27/16 08: 16; Start 06/19/16 at 00:00 Gadodiamide (Omniscan Pf Inj) 18 ml STK-MED ONCE IV Last administered on 12:43; Start 06/21/16 at 12:43; Stop 06/21/16 at 12:44; Status DC Potassium Chloride (KCl) 30 meq ONCE ONCE PO Last administered on 06/22/16 08 :56; Start 06/22/16 at 08:30; Stop 06/22/16 at 08:31; Status DC Potassium Chloride (KCl) 30 meq ONCE ONCE PO Last administered on 06/22/16 12 :28; Start 06/22/16 at 12:00; Stop 06/22/16 at 12:01; Status DC Potassium Chloride (KCl) 30 meq ONCE ONCE PO Last administered on 06/22/16 18 :13; Start 06/22/16 at 16:00; Stop 06/22/16 at 16:01; Status DC Magnesium Hydroxide (Milk Of Magnesia Liq) 30 ml DAILY PRN PO CONSTIPATION Last administered on 06/23/16 12:37; Start 06/22/16 at 09:15 Potassium Chloride (KCl) 40 meq ONCE ONCE PO Last administered on 06/23/16 12: 30; Start 06/23/16 at 12:00; Stop 06/23/16 at 12:01; Status DC Acetaminophen/ Hydrocodone Bitart ([place] 5-325 Mg) 1 tab Q4H PRN PO PAIN 3-6 Last administered on 06/25/16 08:39; Start 06/24/16 at 12:15 Acetaminophen/ Hydrocodone Bitart ([place] 5-325 Mg) 2 tab Q4H PRN PO PAIN 7-10 Last administered on 06/27/16 04:40; Start 06/24/16 at 12:15 Senna/Docusate Sodium (Karey-Colace) 1 tab BID PRN PO CONSTIPATION Last administered on 06/24/16 17:04; Start 06/24/16 at 16:45 Potassium Chloride (KCl) 40 meq ONCE ONCE PO Last administered on 06/25/16 14: 27; Start 06/25/16 at 13:45; Stop 06/25/16 at 13:46; Status DC Potassium Chloride (KCl) 20 meq ONCE ONCE PO Last administered on 06/25/16 16: 58; Start 06/25/16 at 16:00; Stop 06/25/16 at 16:01; Status DC A/P Assessment and Plan A/P acute pancreatitis- abdominal pain has improved but still with recurrent nausea and vomiting continue pain control lipase trending down. consider stopping Lupron if ok with CHIEF DEVELOPMENT OFFICER continue PPI GI follow-up appreciated; awaiting gastric emptying study and small bowel series. Pelvic mass ( right ovarian mass per patient who is s/p left oophorectomy 02/05 ) - On Lupron from PCP- however this might need to be stopped due to pancreatitis - this will be deferred to CHIEF DEVELOPMENT OFFICER/ PCP. -CHIEF DEVELOPMENT OFFICER consult appreciated and no surgical intervention at this time; will continue with conservative treatment -f/u as outpatient. Hypokalemia -replaced- monitor the level. DVT prophylaxis - SCDs Discharge Planning still with recurrent nausea and vomiting- GI work-up in progress. Aguila Beltran MD Jun 27, 2016 08:23
[2016-06-27 08:38] LABS: ALKALINE PHOSPHATASE 45 U/L (45-117); ALT (GPT) 13 U/L (10-53); TOTAL BILIRUBIN ADULT 0.4 MG/DL (0.2-1.0)
[2016-06-27 08:43] LABS: ANION GAP 10 MEQ/L (5-15); BLOOD UREA NITROGEN LESS THAN 1 MG/DL (7-18); CHLORIDE 105 MEQ/L (98-107); GLOMERULAR FILTRATION RATE 252 ML/MIN (>89); SODIUM (NA) 139 MEQ/L (136-145)
[2016-06-27 08:44] LABS: AST (GOT) 15 U/L (15-37); POTASSIUM 3.7 MEQ/L (3.5-5.1)
[2016-06-27] MEDS: CIPROFLOXACIN 400 MG PREMIX 200 ML IV SCH ×2 (09:26→21:53)
[2016-06-27 12:00] VITALS: BP 116/81; PULSE 92; RESP 20; TEMP 96.4; O2SAT 100
[2016-06-27] MEDS ORDERED: MAGNESIUM CITRATE SOLN 300 ML BTL PO ONE ×2 (13:00→18:00)
[2016-06-27 16:00] VITALS: BP 118/85; PULSE 110; RESP 18; TEMP 97.2; O2SAT 99
[2016-06-27] MEDS ORDERED: BISACODYL EC 5 MG TABEC PO ONE ×2 (18:00→21:00)
--- NOTE | 2016-06-27 19:50 | HHI.GIFU ---
Subjective Remarks Feeling a little better today less pain less nausea and vomiting tolerating a little more intake Objective Vitals I&O Vital Signs Date Time Temp Pulse Resp B/P Pulse Ox O2 Delivery O2 Flow Rate FiO2 06/27/16 16:00 97.2 110 18 118/85 99 06/27/16 12:00 96.4 92 20 116/81 100 06/27/16 08:00 97.3 86 20 115/82 99 06/27/16 06:30 19 06/27/16 04:00 96.2 98 18 116/81 98 06/27/16 00:00 98.2 99 18 131/88 99 06/26/16 20:00 96.0 98 18 112/81 99 I/O 06/26/16 06/26/16 06/26/16 06/27/16 06/27/16 06/27/16 07:00 15:00 23:00 07:00 15:00 23:00 Intake Total 942 ml 2292 ml 600 ml 1893 ml 1440 ml 600 ml Output Total 6300 ml 250 ml 3850 ml 600 ml Balance 942 ml -4008 ml 350 ml 1893 ml -2410 ml 0 ml Intake Oral 240 ml 1320 ml 600 ml 120 ml 1440 ml 600 ml IV Total 702 ml 972 ml 1773 ml Output Urine Total 6300 ml 250 ml 3850 ml 600 ml # Voids 1 2 # Bowel Movements 0 Laboratory Laboratory Tests Test 06/27/16 06:20 White Blood Count 3.6 Red Blood Count 3.72 Hemoglobin 9.8 Hematocrit 30.4 Mean Corpuscular Volume 81.8 Mean Corpuscular Hemoglobin 26.4 Mean Corpuscular Hemoglobin 32.3 Concent Red Cell Distribution Width 20.9 Platelet Count 379 Mean Platelet Volume 7.3 Sodium Level 139 Potassium Level 3.7 Chloride Level 105 Carbon Dioxide Level 24.0 Anion Gap 10 Blood Urea Nitrogen LESS THAN 1 Creatinine 0.38 Estimat Glomerular Filtration 252 Rate Random Glucose 73 Calcium Level 7.9 Total Bilirubin 0.4 Aspartate Amino Transf 15 (AST/SGOT) Alanine Aminotransferase 13 (ALT/SGPT) Alkaline Phosphatase 45 Total Protein 5.5 Albumin 2.2 Lipase 513 Physical Exam HEENT: Normocephalic; atraumatic; no jaundice. Throat is clear. NECK: Neck is supple, no JVD, no lymphadenopathy. CHEST: CTA CARDIAC: RRR ABDOMEN: Soft, nondistended, mild diffuse tenderness; no hepatosplenomegaly; bowel sounds are present in all four quadrants. EXTREMITIES: No clubbing, cyanosis, or edema. SKIN: Normal; no rash; no jaundice. SCHOOL PHYSICAL THERAPIST: No focal deficits; alert and oriented times three. Assessment and Plan Plan ASSESSMENT: - Abdominal pain with nausea, vomiting. Pt from [place], attends school here at [facility]. In January, she was found to have a large pelvic mass with ascites and small bowel obstruction. She underwent diagnostic laparoscopy, laparoscopic left oophorectomy and cystectomy, peritoneal and ovarian biopsy laparoscopic with frozen section, and abdominal washout on 01/23/[address] Ta. Pathology revealed fibrotic tissue with hemosiderin laden macrophages, ovarian tissue with fibrosis and focal hemosiderin deposition, one detached fragment of tissue suspicious for endometrial stroma, endometrioma, cystic structure containing degenerating blood with hemosiderin laden macrophages and fibrosis in the wall, adjacent fragment of endometriosis. She has continued to have n/v, inability to tolerate po. She was started on Lupron in April of 2016, but was having symptoms prior to this. She has had workup in [place], states they did HIDA to look at her gb and this was normal. She recently had EGD on 05/25/[address] Norma Simental in [place] and this was unremarkable other than a hiatal hernia. She was placed on a trial of protonix, but she felt that this made her symptoms worse and therefore she did not continue it. Abnormal wt. loss 55 lbs, with n/v about five minutes after trying to eat. + BM, last night. Denies constipation/bloating. Abdomen/Pelvis CT (06/16/16)---> 1. Large complex septated pelvic mass again noted which is decreased in size from the prior study. This remains most consistent with ovarian etiology. This could represent a large endometrioma given the patient's history. 2. The distal small bowel is abnormal with dilatation, enhancement of the sanchez and multiple air-fluid levels. This is nonspecific but most likely is infectious or inflammatory. The more proximal small bowel and colon are decompressed and this is unlikely to represent obstruction. 3. Fatty infiltration of the liver. RECORDS from [place]: EGD (05/25/16)---> mild gastritis in antrum and a small sliding hiatal hernia, otherwise normal upper endoscopy. Pathology with mild chronic gastritis, no h pylori. Abdomen MRI (06/21/16)----> 1. Persistent complex cystic lesion in the pelvis containing multiple septations. This has decreased in size of the last several exams. 2. There is no free fluid. 3. Definitive surgical evaluation may be of benefit. S/P Dr. Tolbert evaluation. Cipro/Flagyl. Zofran. DEMI. Tolerating oral pain meds. Taking some po- still not much appetite. - Pancreatitis, ? secondary to Lupron. Abdomen MRI (06/21/16)----> 1. Persistent complex cystic lesion in the pelvis containing multiple septations. This has decreased in size of the last several exams. 2. There is no free fluid. 3. Definitive surgical evaluation may be of benefit. MRCP (06/19/16)---> 1. No evidence of any definite gallstones or biliary tract obstruction. 2. There appears to be edema and fluid surrounding the pancreas and extending to the right paracolic gutter suggestive of pancreatitis. Recommend correlation with patient's laboratory values. Lipase trending down---> 676. She tried to take cheerios but states this was making her very nauseous. Still with abdominal pain and requiring IV pain meds. - Abnormal weight loss. 55 lb weight loss since January. - Endometriosis, s/p diagnostic laparoscopy, laparoscopic left oophorectomy and cystectomy, peritoneal and ovarian biopsy laparoscopic with frozen section, and abdominal washout on 01/23/[address] Ta. Pathology revealed fibrotic tissue with hemosiderin laden macrophages, ovarian tissue with fibrosis and focal hemosiderin deposition, one detached fragment of tissue suspicious for endometrial stroma, endometrioma, cystic structure containing degenerating blood with hemosiderin laden macrophages and fibrosis in the wall, adjacent fragment of endometriosis. Lupron 06/26/16- patient not able to tolerate PO, she is on Reglan, Zofran without relief Case discussed with dr. Beltran. lipase improving, not clear etiology for n/v had extensive work up, will order GE, SBFT PLAN: - Low fat diet as tolerated - Await GE, this was ordered by attending - Will order upper GI with SBFT to r/o gastric outlet obstruction, small bowel obstruction, Ct did show abnormal small bowel dilatation - Cont. PPI - Cont. Reglan - Cont. Cipro/Flagyl - Cont. Zofran prn - Encourage mobility Devonte Lovell MD Jun 27, 2016 19:50
[2016-06-28] VITALS: BP 122/81; PULSE 94; RESP 16; TEMP 97.3; O2SAT 97
[2016-06-28] MEDS: METOCLOPRAMIDE HCL 10 MG/2 ML VIAL IV SCH ×3 (00:05→18:27)
[2016-06-28] MEDS: metroNIDAZOLE 500 MG INJ 100 ML IV SCH ×4 (03:14→20:34)
[2016-06-28 04:00] VITALS: BP 120/87; PULSE 94; RESP 18; TEMP 97; O2SAT 96
[2016-06-28] MEDS: NS + KCL 20 MEQ INJ 1,000 ML IV SCH ×3 (05:00→20:35)
[2016-06-28] MEDS: PANTOPRAZOLE SODIUM 40 MG VIAL IV PUSH SCH ×2 (05:14→18:26)
[2016-06-28 07:13] VITALS: BP 129/93; PULSE 98; RESP 20; TEMP 98.3; O2SAT 98
--- NOTE | 2016-06-28 07:38 | HHI.PR ---
Subjective Remarks in no distress. no nausea this morning but vomited last night. abdominal pain is minimal to mild. Objective Vitals Vital Signs Date Time Temp Pulse Resp B/P Pulse Ox O2 Delivery O2 Flow Rate FiO2 06/28/16 07:13 98.3 98 20 129/93 98 06/28/16 04:00 97.0 94 18 120/87 96 06/28/16 00:00 97.3 94 16 122/81 97 06/27/16 22:56 18 06/27/16 16:00 97.2 110 18 118/85 99 06/27/16 12:00 96.4 92 20 116/81 100 06/27/16 08:00 97.3 86 20 115/82 99 I/O 06/27/16 06/27/16 06/27/16 06/28/16 06/28/16 06/28/16 07:00 15:00 23:00 07:00 15:00 23:00 Intake Total 1893 ml 1440 ml 1080 ml 1462 ml Output Total 3850 ml 1050 ml 400 ml Balance 1893 ml -2410 ml 30 ml 1062 ml Intake Oral 120 ml 1440 ml 1080 ml IV Total 1773 ml 1462 ml Output Urine Total 3850 ml 1050 ml 400 ml # Voids 2 # Bowel Movements 0 Result Diagram: 06/27/16 0620 06/27/16 0620 Imaging Last Impressions Abdomen MRI 06/21/16 0000 Signed Impressions: Service Date/Time: Tuesday, June 21, 2016 12:01 - CONCLUSION: 1. Persistent complex cystic lesion in the pelvis containing multiple septations. This has decreased in size of the last several exams. 2. There is no free fluid. 3. Definitive surgical evaluation may be of benefit. Adi Burns MD FACR Cholangiopancreatography MRI 06/19/16 0000 Signed Impressions: Service Date/Time: Sunday, June 19, 2016 12:57 - CONCLUSION: 1. No evidence of any definite gallstones or biliary tract obstruction. 2. There appears to be edema and fluid surrounding the pancreas and extending to the right paracolic gutter suggestive of pancreatitis. Recommend correlation with patient's laboratory values. Yohan De Oliveira MD Abdomen/Pelvis CT 06/16/16 0000 Signed Impressions: Service Date/Time: Thursday, June 16, 2016 18:11 - CONCLUSION: 1. Large complex septated pelvic mass again noted which is decreased in size from the prior study. This remains most consistent with ovarian etiology. This could represent a large endometrioma given the patient's history. 2. The distal small bowel is abnormal with dilatation, enhancement of the sanchez and multiple air-fluid levels. This is nonspecific but most likely is infectious or inflammatory. The more proximal small bowel and colon are decompressed and this is unlikely to represent obstruction. 3. Fatty infiltration of the liver. Vicente Minor MD Objective Remarks GENERAL: This is a well-nourished, well-developed patient, in no apparent distress. CARDIOVASCULAR: Regular rate and regular rhythm without murmurs, gallops, or rubs. RESPIRATORY: Clear to auscultation. Breath sounds equal bilaterally. No wheezes , rales, or rhonchi. GASTROINTESTINAL: Abdomen soft, minimal epigastric tenderness, nondistended. Normal, active bowel sounds MUSCULOSKELETAL: Extremities without clubbing, cyanosis, or edema. NEURO: Alert & Oriented x4 to person, place, time, situation. Moves all ext x4 Procedures none Medications and IVs Current Medications Ondansetron HCl 4 mg 4 mg ONCE ONCE IVP Last administered on 06/16/16 17:07; Start 06/16/16 at 16:45; Stop 06/16/16 at 16:46; Status DC Sodium Chloride (NS 1000 ml Inj) 1,000 ml @ 1,000 mls/hr Q1H IV Last administered on 06/16/16 17:07; Start 06/16/16 at 16:40; Stop 06/16/16 at 17:39 ; Status DC IV Flush (NS Flush) 2 ml UNSCH PRN IVF FLUSH AFTER USING IV ACCESS Last administered on 06/21/16 20:11; Start 06/16/16 at 16:45 Ketorolac Tromethamine (Toradol Inj) 30 mg ONCE ONCE IVP Last administered on 06/16/16 17:06; Start 06/16/16 at 16:45; Stop 06/16/16 at 16:46; Status DC Iohexol 100 ml 100 ml STK-MED ONCE IV Last administered on 06/16/16 18:16; Start 06/16/16 at 18:16; Stop 06/16/16 at 18:17; Status DC Ceftriaxone Sodium 1000 mg/ Sodium Chloride 100 ml @ 200 mls/hr ONCE ONCE IV Last administered on 06/16/16 18:52; Start 06/16/16 at 18:30; Stop 06/16/16 at 18:59; Status DC Potassium Chloride (KCl 20 Meq Premix Inj) 100 ml @ 50 mls/hr ONCE ONCE IV Last administered on 06/16/16 19:29; Start 06/16/16 at 18:30; Stop 06/16/16 at 20:29; Status DC Potassium Chloride 40 meq 40 meq ONCE ONCE PO Last administered on 06/16/16 18:52; Start 06/16/16 at 18:30; Stop 06/16/16 at 18:31; Status DC Magnesium Sulfate/ Dextrose 100 ml @ 100 mls/hr ONCE ONCE IV Last administered on 06/16/16 21:10; Start 06/16/16 at 18:30; Stop 06/16/16 at 19:29 ; Status DC Potassium Chloride/Sodium Chloride (NS + KCl 20 Meq Inj) 1,000 ml @ 125 mls/hr Q8H IV Last administered on 06/27/16 20:21; Start 06/16/16 at 21:00 Ondansetron HCl 4 mg 4 mg Q8H PRN IV PUSH NAUSEA Last administered on 06/27/16 13:13; Start 06/16/16 at 18:45 Metronidazole 100 ml @ 100 mls/hr ONCE ONCE IV Last administered on 21:10; Start 06/16/16 at 19:00; Stop 06/16/16 at 19:59; Status DC Metronidazole 100 ml @ 100 mls/hr Q6H IV Last administered on 06/28/16 07:07; Start 06/17/16 at 02:00 Ciprofloxacin/ Dextrose 200 ml @ 200 mls/hr Q12H IV Last administered on 21:53; Start 06/17/16 at 09:00 Potassium Chloride (KCl 20 Meq Premix Inj) 100 ml @ 50 mls/hr Q2H IV Last administered on 06/17/16 03:12; Start 06/16/16 at 21:30; Stop 06/17/16 at 01:29 ; Status DC Morphine Sulfate (Morphine Inj) 2 mg Q3H PRN IV PUSH BREAKTHROUGH PAIN Last administered on 06/24/16 12:43; Start 06/16/16 at 21:15 Pantoprazole Sodium (Protonix Inj) 40 mg Q12H IV PUSH Last administered on 05:14; Start 06/18/16 at 17:00 Metoclopramide HCl (Reglan Inj) 10 mg Q8H IM Last administered on 06/18/16 16: 35; Start 06/18/16 at 16:00; Stop 06/18/16 at 18:14; Status DC Metoclopramide HCl (Reglan Inj) 10 mg Q8H IV Last administered on 06/27/16 16: 45; Start 06/19/16 at 00:00 Gadodiamide (Omniscan Pf Inj) 18 ml STK-MED ONCE IV Last administered on 12:43; Start 06/21/16 at 12:43; Stop 06/21/16 at 12:44; Status DC Potassium Chloride (KCl) 30 meq ONCE ONCE PO Last administered on 06/22/16 08 :56; Start 06/22/16 at 08:30; Stop 06/22/16 at 08:31; Status DC Potassium Chloride (KCl) 30 meq ONCE ONCE PO Last administered on 06/22/16 12 :28; Start 06/22/16 at 12:00; Stop 06/22/16 at 12:01; Status DC Potassium Chloride (KCl) 30 meq ONCE ONCE PO Last administered on 06/22/16 18 :13; Start 06/22/16 at 16:00; Stop 06/22/16 at 16:01; Status DC Magnesium Hydroxide (Milk Of Magnesia Liq) 30 ml DAILY PRN PO CONSTIPATION Last administered on 06/23/16 12:37; Start 06/22/16 at 09:15 Potassium Chloride (KCl) 40 meq ONCE ONCE PO Last administered on 06/23/16 12: 30; Start 06/23/16 at 12:00; Stop 06/23/16 at 12:01; Status DC Acetaminophen/ Hydrocodone Bitart ([place] 5-325 Mg) 1 tab Q4H PRN PO PAIN 3-6 Last administered on 06/25/16 08:39; Start 06/24/16 at 12:15 Acetaminophen/ Hydrocodone Bitart ([place] 5-325 Mg) 2 tab Q4H PRN PO PAIN 7-10 Last administered on 06/27/16 21:56; Start 06/24/16 at 12:15 Senna/Docusate Sodium (Karey-Colace) 1 tab BID PRN PO CONSTIPATION Last administered on 06/24/16 17:04; Start 06/24/16 at 16:45 Potassium Chloride (KCl) 40 meq ONCE ONCE PO Last administered on 06/25/16 14: 27; Start 06/25/16 at 13:45; Stop 06/25/16 at 13:46; Status DC Potassium Chloride (KCl) 20 meq ONCE ONCE PO Last administered on 06/25/16 16: 58; Start 06/25/16 at 16:00; Stop 06/25/16 at 16:01; Status DC Magnesium Citrate (Citroma Liq) 300 ml NOW ONCE PO Last administered on 13:13; Start 06/27/16 at 13:00; Stop 06/27/16 at 13:01; Status DC Magnesium Citrate (Citroma Liq) 300 ml ONCE ONCE PO ; Start 06/27/16 at 18:00; Stop 06/27/16 at 18:01; Status DC Bisacodyl (Dulcolax Ec) 10 mg ONCE ONCE PO Last administered on 06/27/16 18:17 ; Start 06/27/16 at 18:00; Stop 06/27/16 at 18:01; Status DC Bisacodyl (Dulcolax Ec) 10 mg ONCE ONCE PO Last administered on 06/27/16 20:20 ; Start 06/27/16 at 21:00; Stop 06/27/16 at 21:01; Status DC A/P Assessment and Plan A/P acute pancreatitis- abdominal pain has improved but still with recurrent nausea and vomiting continue pain control lipase trending down. consider stopping Lupron if ok with FINANCIAL ASSISTANCE ADVISOR continue PPI GI follow-up appreciated; awaiting gastric emptying study and small bowel series. Pelvic mass ( right ovarian mass per patient who is s/p left oophorectomy 02/05 ) - On Lupron from PCP- however this might need to be stopped due to pancreatitis - this will be deferred to FINANCIAL ASSISTANCE ADVISOR/ PCP. -FINANCIAL ASSISTANCE ADVISOR consult appreciated and no surgical intervention at this time; will continue with conservative treatment -f/u as outpatient. Hypokalemia -replaced- monitor the level. DVT prophylaxis - SCDs Discharge Planning still with recurrent nausea and vomiting- GI work-up in progress. Aguila Beltran MD Jun 28, 2016 07:38
[2016-06-28] MEDS ORDERED: DIATRIZOATE MEGLUM/DIATRIZOATE SOD 120 ML BTL (for RAD DIAG) PO ONE (10:14)
[2016-06-28] MEDS: ONDANSETRON HCL 4 MG/2 ML VIAL IV PUSH PRN (13:10)
[2016-06-28] MEDS: CIPROFLOXACIN 400 MG PREMIX 200 ML IV SCH ×2 (13:11→20:35)
[2016-06-28] MEDS: ACETAMINOPHEN/HYDROcodone 325 MG/5 MG TAB PO PRN (13:22)
--- NOTE | 2016-06-28 15:04 | RADRPT ---
EXAM DATE/TIME: 06/28/2016 09:10 [facility] COMPARISON: No previous studies available for comparison. INDICATIONS: Possible obstruction. Nausea and vomiting. Last bowel movement three days ago. FLUORO TIME: 0.7 minutes IMAGE COUNT: 16 CONTRAST: Gastroapolinar IMAGING TIME(S): 15 min, 30 min, 45 min, 1 hr, 1.5 hrs2hr, 2 1/2hr, 3hr MEDICAL HISTORY: Hiatal hernia. SURGICAL HISTORY: Left ovary removed. ENCOUNTER: Initial ACUITY: 4 - 6 days PAIN SCORE: 8/10 LOCATION: Bilateral abdomen. FINDINGS: Small bowel series was performed. There is good visualization of the small bowel. Multiple spot films were obtained. Small bowel look s normal. There is a normal small bowel transit time. Tenderness to palpation is in the mid abdomen, at the pelvic brim. CONCLUSION: 1. Unremarkable small bowel series. 2. Patient is tender to palpation in the lower mid pelvis. Adi Burns MD FACR on June 28, 2016 at 13:05 Board Certified Radiologist. This report was verified electronically.
[2016-06-28 15:50] VITALS: BP 111/67; PULSE 88; RESP 20; TEMP 97.6; O2SAT 99
--- NOTE | 2016-06-28 16:01 | HHI.GIFU ---
Subjective Remarks Resting in bed. States feeling better today. Tolerating shrimp last night for dinner. However, vomited eggs back up this morning. SBFT penidng. Objective Vitals I&O Vital Signs Date Time Temp Pulse Resp B/P Pulse Ox O2 Delivery O2 Flow Rate FiO2 06/28/16 07:13 98.3 98 20 129/93 98 06/28/16 04:00 97.0 94 18 120/87 96 06/28/16 00:00 97.3 94 16 122/81 97 06/27/16 22:56 18 06/27/16 16:00 97.2 110 18 118/85 99 I/O 06/27/16 06/27/16 06/27/16 06/28/16 06/28/16 06/28/16 06:59 14:59 22:59 06:59 14:59 22:59 Intake Total 1893 ml 1440 ml 1080 ml 1462 ml Output Total 3850 ml 1050 ml 400 ml Balance 1893 ml -2410 ml 30 ml 1062 ml Intake Oral 120 ml 1440 ml 1080 ml IV Total 1773 ml 1462 ml Output Urine Total 3850 ml 1050 ml 400 ml # Voids 2 # Bowel Movements 0 Imaging Last Impressions Abdomen MRI 06/21/16 0000 Signed Impressions: Service Date/Time: Tuesday, June 21, 2016 12:01 - CONCLUSION: 1. Persistent complex cystic lesion in the pelvis containing multiple septations. This has decreased in size of the last several exams. 2. There is no free fluid. 3. Definitive surgical evaluation may be of benefit. Adi Burns MD FACR Cholangiopancreatography MRI 06/19/16 0000 Signed Impressions: Service Date/Time: Sunday, June 19, 2016 12:57 - CONCLUSION: 1. No evidence of any definite gallstones or biliary tract obstruction. 2. There appears to be edema and fluid surrounding the pancreas and extending to the right paracolic gutter suggestive of pancreatitis. Recommend correlation with patient's laboratory values. Yohan De Oliveira MD Abdomen/Pelvis CT 06/16/16 0000 Signed Impressions: Service Date/Time: Thursday, June 16, 2016 18:11 - CONCLUSION: 1. Large complex septated pelvic mass again noted which is decreased in size from the prior study. This remains most consistent with ovarian etiology. This could represent a large endometrioma given the patient's history. 2. The distal small bowel is abnormal with dilatation, enhancement of the sanchez and multiple air-fluid levels. This is nonspecific but most likely is infectious or inflammatory. The more proximal small bowel and colon are decompressed and this is unlikely to represent obstruction. 3. Fatty infiltration of the liver. Vicente Minor MD Physical Exam HEENT: Normocephalic; atraumatic; no jaundice. Throat is clear. NECK: Neck is supple, no JVD, no lymphadenopathy. CHEST: CTA CARDIAC: RRR ABDOMEN: Soft, nondistended, mild diffuse tenderness; no hepatosplenomegaly; bowel sounds are present in all four quadrants. EXTREMITIES: No clubbing, cyanosis, or edema. SKIN: Normal; no rash; no jaundice. DONOR PROCESSOR: No focal deficits; alert and oriented times three. Assessment and Plan Plan ASSESSMENT: - Abdominal pain with nausea, vomiting. Pt from [place], attends school here at [employer] [facility]. In January, she was found to have a large pelvic mass with ascites and small bowel obstruction. She underwent diagnostic laparoscopy, laparoscopic left oophorectomy and cystectomy, peritoneal and ovarian biopsy laparoscopic with frozen section, and abdominal washout on 01/23/[address] Ta. Pathology revealed fibrotic tissue with hemosiderin laden macrophages, ovarian tissue with fibrosis and focal hemosiderin deposition, one detached fragment of tissue suspicious for endometrial stroma, endometrioma, cystic structure containing degenerating blood with hemosiderin laden macrophages and fibrosis in the wall, adjacent fragment of endometriosis. She has continued to have n/v, inability to tolerate po. She was started on Lupron in April of 2016, but was having symptoms prior to this. She has had workup in [place], states they did HIDA to look at her gb and this was normal. She recently had EGD on 05/25/[address] Norma Simental in [place] and this was unremarkable other than a hiatal hernia. She was placed on a trial of protonix, but she felt that this made her symptoms worse and therefore she did not continue it. Abnormal wt. loss 55 lbs, with n/v about five minutes after trying to eat. + BM, last night. Denies constipation/bloating. Abdomen/Pelvis CT (06/16/16)---> 1. Large complex septated pelvic mass again noted which is decreased in size from the prior study. This remains most consistent with ovarian etiology. This could represent a large endometrioma given the patient's history. 2. The distal small bowel is abnormal with dilatation, enhancement of the sanchez and multiple air-fluid levels. This is nonspecific but most likely is infectious or inflammatory. The more proximal small bowel and colon are decompressed and this is unlikely to represent obstruction. 3. Fatty infiltration of the liver. RECORDS from [place]: EGD (05/25/16)---> mild gastritis in antrum and a small sliding hiatal hernia, otherwise normal upper endoscopy. Pathology with mild chronic gastritis, no h pylori. Abdomen MRI (06/21/16)----> 1. Persistent complex cystic lesion in the pelvis containing multiple septations. This has decreased in size of the last several exams. 2. There is no free fluid. 3. Definitive surgical evaluation may be of benefit. S/P Dr. Tolbert evaluation. Cipro/Flagyl. Zofran. DEMI, tolerated shrimp last night, but not the eggs this am. SBFT pending. - Pancreatitis, ? secondary to Lupron. Abdomen MRI (06/21/16)----> 1. Persistent complex cystic lesion in the pelvis containing multiple septations. This has decreased in size of the last several exams. 2. There is no free fluid. 3. Definitive surgical evaluation may be of benefit. MRCP (06/19/16)---> 1. No evidence of any definite gallstones or biliary tract obstruction. 2. There appears to be edema and fluid surrounding the pancreas and extending to the right paracolic gutter suggestive of pancreatitis. Recommend correlation with patient's laboratory values. Lipase trending down---> 513. Clinically, she seems to be doing better. - Abnormal weight loss. 55 lb weight loss since January. - Endometriosis, s/p diagnostic laparoscopy, laparoscopic left oophorectomy and cystectomy, peritoneal and ovarian biopsy laparoscopic with frozen section, and abdominal washout on 01/23/[address] Ta. Pathology revealed fibrotic tissue with hemosiderin laden macrophages, ovarian tissue with fibrosis and focal hemosiderin deposition, one detached fragment of tissue suspicious for endometrial stroma, endometrioma, cystic structure containing degenerating blood with hemosiderin laden macrophages and fibrosis in the wall, adjacent fragment of endometriosis. Lupron PLAN: - Low fat diet as tolerated - Await SBFT - Cont. PPI - Cont. Reglan - Cont. Cipro/Flagyl - Cont. Zofran prn - Consider GES if above unremarkable - Encourage mobility - Pt seen and examined by Dr. Justin and myself and this note is written on his behalf Hailey Baez Jun 28, 2016 16:01
[2016-06-28 20:00] VITALS: BP 122/76; PULSE 90; RESP 18; TEMP 98.2; O2SAT 96
[2016-06-29] VITALS: BP 119/69; PULSE 86; RESP 17; TEMP 97.7; O2SAT 96
[2016-06-29] MEDS: metroNIDAZOLE 500 MG INJ 100 ML IV SCH ×2 (01:17→08:07)
[2016-06-29] MEDS: METOCLOPRAMIDE HCL 10 MG/2 ML VIAL IV SCH ×2 (01:17→09:01)
[2016-06-29] MEDS: ACETAMINOPHEN/HYDROcodone 325 MG/5 MG TAB PO PRN (01:20)
[2016-06-29 04:00] VITALS: BP_SYST 120; BP_SYST 149; BP_DIAS 82; BP_DIAS 93; PULSE 75; PULSE 91; RESP 18; TEMP 96.8; TEMP 98.8; O2SAT 100; O2SAT 98
[2016-06-29] MEDS: PANTOPRAZOLE SODIUM 40 MG VIAL IV PUSH SCH (04:28)
[2016-06-29] MEDS: NS + KCL 20 MEQ INJ 1,000 ML IV SCH (04:29)
[2016-06-29 08:00] VITALS: BP 109/65; PULSE 95; RESP 16; TEMP 98.1; O2SAT 100
--- NOTE | 2016-06-29 08:53 | HHI.PR ---
Subjective Remarks looks more comfortable today. nausea seems to be improving. wants to go home today. d/w the RN. Objective Vitals Vital Signs Date Time Temp Pulse Resp B/P Pulse Ox O2 Delivery O2 Flow Rate FiO2 06/29/16 08:00 98.1 95 16 109/65 100 06/29/16 04:00 96.8 91 18 120/82 98 06/29/16 00:00 97.7 86 17 119/69 96 06/28/16 20:00 98.2 90 18 122/76 96 06/28/16 15:50 97.6 88 20 111/67 99 I/O 06/28/16 06/28/16 06/28/16 06/29/16 06/29/16 06/29/16 07:00 15:00 23:00 07:00 15:00 23:00 Intake Total 1462 ml 0 ml 200 ml 2240 ml Output Total 400 ml 200 ml Balance 1062 ml 0 ml 0 ml 2240 ml Intake Oral 0 ml 200 ml 240 ml IV Total 1462 ml 2000 ml Output Urine Total 400 ml 200 ml # Voids 1 2 # Bowel Movements 1 Result Diagram: 06/27/16 0620 06/27/16 0620 Imaging Last Impressions Small Bowel X-Ray 06/28/16 0000 Signed Impressions: Service Date/Time: Tuesday, June 28, 2016 09:10 - CONCLUSION: 1. Unremarkable small bowel series. 2. Patient is tender to palpation in the lower mid pelvis. Adi Burns MD FACR Abdomen MRI 06/21/16 0000 Signed Impressions: Service Date/Time: Tuesday, June 21, 2016 12:01 - CONCLUSION: 1. Persistent complex cystic lesion in the pelvis containing multiple septations. This has decreased in size of the last several exams. 2. There is no free fluid. 3. Definitive surgical evaluation may be of benefit. Adi Burns MD FACR Cholangiopancreatography MRI 06/19/16 0000 Signed Impressions: Service Date/Time: Sunday, June 19, 2016 12:57 - CONCLUSION: 1. No evidence of any definite gallstones or biliary tract obstruction. 2. There appears to be edema and fluid surrounding the pancreas and extending to the right paracolic gutter suggestive of pancreatitis. Recommend correlation with patient's laboratory values. Yohan De Oliveira MD Abdomen/Pelvis CT 06/16/16 0000 Signed Impressions: Service Date/Time: Thursday, June 16, 2016 18:11 - CONCLUSION: 1. Large complex septated pelvic mass again noted which is decreased in size from the prior study. This remains most consistent with ovarian etiology. This could represent a large endometrioma given the patient's history. 2. The distal small bowel is abnormal with dilatation, enhancement of the sanchez and multiple air-fluid levels. This is nonspecific but most likely is infectious or inflammatory. The more proximal small bowel and colon are decompressed and this is unlikely to represent obstruction. 3. Fatty infiltration of the liver. Vicente Minor MD Objective Remarks GENERAL: This is a well-nourished, well-developed patient, in no apparent distress. CARDIOVASCULAR: Regular rate and regular rhythm without murmurs, gallops, or rubs. RESPIRATORY: Clear to auscultation. Breath sounds equal bilaterally. No wheezes , rales, or rhonchi. GASTROINTESTINAL: Abdomen soft, minimal epigastric tenderness, nondistended. Normal, active bowel sounds MUSCULOSKELETAL: Extremities without clubbing, cyanosis, or edema. NEURO: Alert & Oriented x4 to person, place, time, situation. Moves all ext x4 Procedures none Medications and IVs Current Medications Ondansetron HCl 4 mg 4 mg ONCE ONCE IVP Last administered on 06/16/16 17:07; Start 06/16/16 at 16:45; Stop 06/16/16 at 16:46; Status DC Sodium Chloride (NS 1000 ml Inj) 1,000 ml @ 1,000 mls/hr Q1H IV Last administered on 06/16/16 17:07; Start 06/16/16 at 16:40; Stop 06/16/16 at 17:39 ; Status DC IV Flush (NS Flush) 2 ml UNSCH PRN IVF FLUSH AFTER USING IV ACCESS Last administered on 06/21/16 20:11; Start 06/16/16 at 16:45 Ketorolac Tromethamine (Toradol Inj) 30 mg ONCE ONCE IVP Last administered on 06/16/16 17:06; Start 06/16/16 at 16:45; Stop 06/16/16 at 16:46; Status DC Iohexol 100 ml 100 ml STK-MED ONCE IV Last administered on 06/16/16 18:16; Start 06/16/16 at 18:16; Stop 06/16/16 at 18:17; Status DC Ceftriaxone Sodium 1000 mg/ Sodium Chloride 100 ml @ 200 mls/hr ONCE ONCE IV Last administered on 06/16/16 18:52; Start 06/16/16 at 18:30; Stop 06/16/16 at 18:59; Status DC Potassium Chloride (KCl 20 Meq Premix Inj) 100 ml @ 50 mls/hr ONCE ONCE IV Last administered on 06/16/16 19:29; Start 06/16/16 at 18:30; Stop 06/16/16 at 20:29; Status DC Potassium Chloride 40 meq 40 meq ONCE ONCE PO Last administered on 06/16/16 18:52; Start 06/16/16 at 18:30; Stop 06/16/16 at 18:31; Status DC Magnesium Sulfate/ Dextrose 100 ml @ 100 mls/hr ONCE ONCE IV Last administered on 06/16/16 21:10; Start 06/16/16 at 18:30; Stop 06/16/16 at 19:29 ; Status DC Potassium Chloride/Sodium Chloride (NS + KCl 20 Meq Inj) 1,000 ml @ 125 mls/hr Q8H IV Last administered on 06/29/16 04:29; Start 06/16/16 at 21:00 Ondansetron HCl 4 mg 4 mg Q8H PRN IV PUSH NAUSEA Last administered on 06/28/16 13:10; Start 06/16/16 at 18:45 Metronidazole 100 ml @ 100 mls/hr ONCE ONCE IV Last administered on 21:10; Start 06/16/16 at 19:00; Stop 06/16/16 at 19:59; Status DC Metronidazole 100 ml @ 100 mls/hr Q6H IV Last administered on 06/29/16 08:07; Start 06/17/16 at 02:00 Ciprofloxacin/ Dextrose 200 ml @ 200 mls/hr Q12H IV Last administered on 20:35; Start 06/17/16 at 09:00 Potassium Chloride (KCl 20 Meq Premix Inj) 100 ml @ 50 mls/hr Q2H IV Last administered on 06/17/16 03:12; Start 06/16/16 at 21:30; Stop 06/17/16 at 01:29 ; Status DC Morphine Sulfate (Morphine Inj) 2 mg Q3H PRN IV PUSH BREAKTHROUGH PAIN Last administered on 06/24/16 12:43; Start 06/16/16 at 21:15 Pantoprazole Sodium (Protonix Inj) 40 mg Q12H IV PUSH Last administered on 04:28; Start 06/18/16 at 17:00 Metoclopramide HCl (Reglan Inj) 10 mg Q8H IM Last administered on 06/18/16 16: 35; Start 06/18/16 at 16:00; Stop 06/18/16 at 18:14; Status DC Metoclopramide HCl (Reglan Inj) 10 mg Q8H IV Last administered on 06/29/16 01: 17; Start 06/19/16 at 00:00 Gadodiamide (Omniscan Pf Inj) 18 ml STK-MED ONCE IV Last administered on 12:43; Start 06/21/16 at 12:43; Stop 06/21/16 at 12:44; Status DC Potassium Chloride (KCl) 30 meq ONCE ONCE PO Last administered on 06/22/16 08 :56; Start 06/22/16 at 08:30; Stop 06/22/16 at 08:31; Status DC Potassium Chloride (KCl) 30 meq ONCE ONCE PO Last administered on 06/22/16 12 :28; Start 06/22/16 at 12:00; Stop 06/22/16 at 12:01; Status DC Potassium Chloride (KCl) 30 meq ONCE ONCE PO Last administered on 06/22/16 18 :13; Start 06/22/16 at 16:00; Stop 06/22/16 at 16:01; Status DC Magnesium Hydroxide (Milk Of Magnesia Liq) 30 ml DAILY PRN PO CONSTIPATION Last administered on 06/23/16 12:37; Start 06/22/16 at 09:15 Potassium Chloride (KCl) 40 meq ONCE ONCE PO Last administered on 06/23/16 12: 30; Start 06/23/16 at 12:00; Stop 06/23/16 at 12:01; Status DC Acetaminophen/ Hydrocodone Bitart (Gladys 5-325 Mg) 1 tab Q4H PRN PO PAIN 3-6 Last administered on 06/25/16 08:39; Start 06/24/16 at 12:15 Acetaminophen/ Hydrocodone Bitart (Gladys 5-325 Mg) 2 tab Q4H PRN PO PAIN 7-10 Last administered on 06/29/16 01:20; Start 06/24/16 at 12:15 Senna/Docusate Sodium (Karey-Colace) 1 tab BID PRN PO CONSTIPATION Last administered on 06/24/16 17:04; Start 06/24/16 at 16:45 Potassium Chloride (KCl) 40 meq ONCE ONCE PO Last administered on 06/25/16 14: 27; Start 06/25/16 at 13:45; Stop 06/25/16 at 13:46; Status DC Potassium Chloride (KCl) 20 meq ONCE ONCE PO Last administered on 06/25/16 16: 58; Start 06/25/16 at 16:00; Stop 06/25/16 at 16:01; Status DC Magnesium Citrate (Citroma Liq) 300 ml NOW ONCE PO Last administered on 13:13; Start 06/27/16 at 13:00; Stop 06/27/16 at 13:01; Status DC Magnesium Citrate (Citroma Liq) 300 ml ONCE ONCE PO ; Start 06/27/16 at 18:00; Stop 06/27/16 at 18:01; Status DC Bisacodyl (Dulcolax Ec) 10 mg ONCE ONCE PO Last administered on 06/27/16 18:17 ; Start 06/27/16 at 18:00; Stop 06/27/16 at 18:01; Status DC Bisacodyl (Dulcolax Ec) 10 mg ONCE ONCE PO Last administered on 06/27/16 20:20 ; Start 06/27/16 at 21:00; Stop 06/27/16 at 21:01; Status DC Diatrizoate Meglum/ Diatrizoate Sod ( Gastroview Liq) 120 ml STK-MED ONCE PO Last administered on 06/28/16 10:14; Start 06/28/16 at 10:14; Stop 06/28/16 at 10: 15; Status DC A/P Assessment and Plan A/P acute pancreatitis- abdominal pain/nausea has improved. continue pain control lipase trending down. consider stopping Lupron if ok with P[employer] JO[employer] continue PPI GI follow-up appreciated Pelvic mass ( right ovarian mass per patient who is s/p left oophorectomy 02/05 ) - On Lupron from PCP- however this might need to be stopped due to pancreatitis - this will be deferred to [employer]/ PCP. -[employer]AST[employer] JOINT [employer] consult appreciated and no surgical intervention at this time; will continue with conservative treatment -f/u as outpatient. Hypokalemia -replaced- monitor the level. DVT prophylaxis - SCDs Discharge Planning dc home with f/u by PCP,GI and [employer]. see med list. d/w the patient,her mother and RN. d/w GI. Aguila Beltran MD Jun 29, 2016 08:53
[2016-06-29] MEDS ORDERED: REGL5TAB PO (08:58)
[2016-06-29] MEDS: CIPROFLOXACIN 400 MG PREMIX 200 ML IV SCH (09:01)
== END 2016-06-29 10:19 | disposition home or self-care (01) | DRG 439 ==
LOC: NEPA 15:41 → NEDA 18:40 → HOCA 20:18
PROVIDERS: ADMIT Internal Medicine; ATTEND Internal Medicine
DX: K85.90 Acute pancreatitis without necrosis or infection, unspecified (principal); K56.60 Unspecified intestinal obstruction; K76.0 Fatty (change of) liver, not elsewhere classified; N39.0 Urinary tract infection, site not specified; T38.5X5A Adverse effect of other estrogens and progestogens, initial encounter; N80.1 Endometriosis of ovary; E87.6 Hypokalemia; K21.9 Gastro-esophageal reflux disease without esophagitis; R63.4 Abnormal weight loss; K44.9 Diaphragmatic hernia without obstruction or gangrene; F41.9 Anxiety disorder, unspecified; K29.50 Unspecified chronic gastritis without bleeding
CPT/HCPCS: 74177; 74181; 74183; 74250; 76377; 76937; 80048; 80053; 80076; 81001; 83605; 83690; 83735; 84132; 84484; 84703; 85007; 85025; 85027; 85610; 85730; 87086; 93005; 96365; 96375; A9579; C9113; J0696; J0744; J1885; J2270; J2405; J2765; J3475; J3480; J7030; Q9963; Q9967